=== PATIENT | female | born 1940 | race Caucasian/White ===

== ENCOUNTER 2021-09-13 22:45 | Inpatient (IN) | payer MEDICARE ==
[~2021-09-13] VITALS: Ht 167.6 cm; Wt 76.2 kg
[2021-09-13 22:40] VITALS: BP 155/101
[2021-09-13] MEDS: IV NORMAL SALINE 1000ML BAG 1,000 ML IV SCH (23:32)
[2021-09-14] MEDS ORDERED: AMLO-187 PO (00:22)
[2021-09-14 03:09] VITALS: BP 121/70
--- NOTE | 2021-09-14 05:25 | NUR ---
admiited from [facility] to room 434 at 09/13/2021 [id number], Dr landry contacted with [facility] Addendum: 09/14/21 at 0527 by ANTONETTE DELAROSA RN Dr Landry contacted with admission orders, Patient informed and verbalized understanding to POC.
[2021-09-14 07:00] VITALS: BP_SYST 134; BP_SYST 136; BP_DIAS 48; BP_DIAS 86
--- NOTE | 2021-09-14 10:23 | PDOC2 ---
CONSULT Date of Consult Date of Consult DATE: 09/14/21 TIME: 09:35 Reason for Consult Reason for Consult: constipation, possible colonic mass, ascites, uterine mass Referring Physician Referring Physician: Dr Rush Identification/Chief Complaint Chief Complaint constipation Source Source: Chart review, Patient History of Present Illness Reason for Visit: Reports constipation, bloating x 2 weeks. No stools, some flatus. Took several laxatives at home without improvement. CT done at [facility] reveals concerns for ascites, peritoneal carcinomatosis, uterine mass, sigmoid wall thickening ER Tx for ongoing management Denies any previous findings, no symptoms prior to last 2 weeks per pt Reports able to keep fluids down, did not eat much though because not stooling Past Medical History Cardiovascular: HTN Past Surgical History Past Surgical History: No pertinent history Family History Family History: Other (noncontributory ) Social History No ALCOHOL: none Drugs: None Lives: with Family Current Medications Current Medications Current Medications Fentanyl Citrate (Fentanyl 2ml Vial) 50 mcg PRN Q3HRS PRN IVP SEVERE PAIN 7-10; Start 09/13/21 at 23:00 Sodium Chloride 1,000 ml @ 75 mls/hr [id number] IV Last administered on 09/13/21at 23:32; Start 09/13/21 at 23:00 Ondansetron HCl (Zofran) 4 mg PRN Q6HRS PRN IVP NAUSEA/VOMITING 1ST CHOICE; Start 09/13/21 at 23:00 Active Scripts Active Reported Amlodipine Besylate 10 Mg Tablet 10 Mg PO DAILY Allergies Allergies: Coded Allergies: codeine (Verified Allergy, Severe, 09/13/21) acetaminophen (Verified Allergy, Intermediate, 09/13/21) hydrocodone (Verified Allergy, Intermediate, 09/13/21) tramadol (Verified Allergy, Intermediate, 09/13/21) ROS General: YES: Fatigue, Malaise PSYCHOLOGICAL ROS: No: Anxiety, Depression Eyes: No Blurry vision, No Double vision HEENT: No: Heacaches, Sore Throat Hematological and Lymphatic: No: Bleeding Problems, Blood Clots Respiratory: No: Cough, Shortness of breath Cardiovascular: No Chest Pain, No Palpitations Gastrointestinal: Yes Other (see hpi) Genitourinary: No Dysuria, No Hematuria Musculoskeletal: No Joint Pain, No Muscle Pain Neurological: No Impaired Coord/balance, No Numbness/Tingling Skin: No Pruritus, No Rash Physical Exam General: Alert, Oriented X3, Cooperative, No acute distress HEENT: Atraumatic, PERRLA Lungs: Clear to auscultation, Normal air movement Heart: Regular rate, Normal S1, Normal S2 Abdomen: Other (distended, nontender) Extremities: No clubbing, No cyanosis Skin: No rashes, No breakdown Neuro: Normal gait, Normal speech Psych/Mental Status: Mental status NL, Mood NL MUSCULOSKELETAL: No deformity, No swelling Vitals VITALS Vital Signs Date Time Temp Pulse Resp B/P (MAP) Pulse Ox O2 Delivery O2 Flow Rate FiO2 09/14/21 07:00 98.4 63 18 134/86 (102) 97 Room Air 98.4 Labs Labs Laboratory Tests Test 09/14/21 07:12 SARS-CoV-2 Antigen (Rapid) Positive (NEGATIVE) Laboratory Tests Test 09/14/21 07:12 SARS-CoV-2 Antigen (Rapid) Positive (NEGATIVE) Images Images CT reviewed from [facility] Assessment/Plan Assessment/Plan constipation, abdominal distention CT findings with uterine mass, ascites, possible peritoneal carcinomatosis, mild wall thickening at the splenic flexure of the colon (however no mass, or other abnormal colon findings oncology, GI, lead massage therapist eval--currently no general surgery findings consult, chart 30 min URIEL BROWNE DECKHAND Sep 14, 2021 10:22
--- NOTE | 2021-09-14 10:59 | PN ---
DATE: 09/14/2021 SUBJECTIVE: The patient is resting, slightly propped up in bed, in no apparent respiratory distress. She is frustrated that she was told that she is coming for surgery, but obviously does not the case here. I do not think she has been a surgical candidate given the spread of the tumor to her peritoneal cavity. On top of that she also tested positive for coronavirus. PHYSICAL EXAMINATION: GENERAL: When I examined her, she was pale, not jaundiced, cyanosed, no lymphadenopathy, no thyromegaly, no jugular venous distention. No lower limb edema. VITAL SIGNS: Her heart rate was 63, blood pressure is 134/86, temperature was 98.4, respiratory rate was 18 and oxygen saturation was 97%. HEAD, EYES, EARS, NOSE, AND THROAT: Normocephalic, atraumatic. NECK: Supple. HEART: Normal first and second heart sounds, no gallop or murmur. CHEST: Clear to auscultation, no crepitation or rhonchi. ABDOMEN: Distended, soft. NEUROLOGIC: She is grossly intact. ASSESSMENT: This is a 80-year-old female patient who presented to the Emergency Room of [facility] with a 13-day history of abdominal bloating, constipation and some abdominal pain. Her CT scan revealed that the patient has a uterine mass, ascites and possible peritoneal carcinomatosis, mild wall thickening of the splenic flexure of the colon. PLAN: We have already consulted the oncologist, business development executive and perhaps the interventional radiologist to do a paracentesis and to find out the origin of the tumor. FABIOLA DR: Paula TID: [id number]
[2021-09-14 11:00] VITALS: BP 139/86
--- NOTE | 2021-09-14 11:11 | HP ---
DATE OF SERVICE: 09/14/2021 ADMIT DATE: 09/13/2021 HISTORY OF PRESENT ILLNESS: The patient is a 80-year-old female patient who presented to the Emergency Room of [facility] with a 13-day history of constipation. The patient stated that she has been unable to pass a bowel movement for approximately 13 days. She said she has tried taking MiraLax and other laxatives without success. She also complained of malaise and abdominal bloating as well as pain particularly movement, but denied any nausea or vomiting. Denied any chills, rigors or fever. Denied any weight loss. She was extensively investigated in the Emergency Room and has had lab work as well as imaging studies. Her lab works are mostly unremarkable. Did have a CT scan of the abdomen and pelvis, which basically showed that: 1. The patient has large amount of intra-abdominal ascites with peritoneal and omental nodularity concerning for peritoneal carcinomatosis. 2. There is mild wall thickening at the splenic flexure of the colon, correlates with colonoscopy. 3. Heterogenous enhancing mass centrally within the uterus measuring approximately 6 x 4.2 cm. This may be endometrial in nature. Further evaluation with ultrasound is warranted. She has prominent right inguinal lymph node as described and small hiatal hernia and small bilateral pleural effusion with adjacent atelectasis. The patient was transferred to [facility] after consultation with the oncologist as well as the general surgeon. PAST MEDICAL HISTORY: Significant for hypertension, hyperlipidemia. PAST SURGICAL HISTORY: Significant for bunionectomy 6 years ago. ALLERGIES: SHE IS ALLERGIC TO ULTRACET AND CODEINE. MEDICATIONS: She is on one medication for hypertension that she is unable to recall. FAMILY HISTORY: She has one brother, younger and healthy. Her father at age of 80, the cause of his is not clear. Mother at age of 97; however, she survived breast cancer. SOCIAL HISTORY: She is . She has 2 biological sons who are still alive, 1 daughter of cancer and her son recently due to COVID-19 infection. He has hypertension and end-stage renal disease, on hemodialysis. She quit smoking years ago. Drinks alcohol very occasionally. 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 REVIEW OF SYSTEMS: The patient denied any blurring of vision, cataracts, glaucoma or macular degeneration. Denied any earache, tinnitus or sensory deafness. Denied nosebleed, stuffy nose or postnasal drip. Denied any sore throat, sore tongue, toothache, hoarseness of voice or difficulty swallowing. Denied any nausea, vomiting, diarrhea. Denied any hematemesis, melena or hematochezia. Denied any dysuria, frequency or hematuria. She denied any chest pain, shortness of breath, orthopnea, paroxysmal nocturnal dyspnea. Denied any cough, phlegm or hemoptysis. Denied any chills, rigors or fever. Denied any dizziness, lightheadedness or vertigo. She did complain of generalized malaise and abdominal bloating and pain, but no other complaint. PHYSICAL EXAMINATION: GENERAL: On arrival to the Emergency Room, there was no pallor, jaundice, cyanosis or thyromegaly. No jugular venous distention. No limb edema. VITAL SIGNS: Her heart rate on arrival was 94, blood pressure was 110/72, temperature was 98.3, respiratory rate was 20 and oxygen saturation was 94%. HEAD, EYES, EARS, NOSE, AND THROAT: Normocephalic, atraumatic. NECK: Supple. HEART: Showed normal first and second heart sounds. No gallop, rub or murmur. CHEST: Clear to auscultation, no crepitation or rhonchi. ABDOMEN: Distended, soft, nontender with positive shifting dullness. There is no guarding or rigidity. No organomegaly. All hernial orifices intact. Bowel sounds normal. NEUROLOGIC: She was grossly intact. LABORATORY DATA: On arrival showed a white cell count of 11,600, hemoglobin 13.3, hematocrit 40, MCV 84 and platelet count 505,000 with normal manual differential. Her serum sodium was 135, potassium 4.1, chloride 99, bicarbonate 26, anion gap of 10, BUN 8, creatinine 0.9. Estimated GFR was 60 mL per minute. Her glucose 160, calcium was 9.5, magnesium was 2.1. Total bilirubin, AST, ALT were normal. Alkaline phosphatase was 109, total protein was 7.1, albumin was 2.7, lipase was 59. His CT scan of the abdomen and pelvis showed that the patient has large amount of intra-abdominal ascites with peritoneal and omental nodularity concerning for peritoneal carcinomatosis. There is mild wall thickening at the splenic flexure of the colon, correlates with colonoscopy, heterogenous, enhancing mass centrally within the uterus measuring approximately 6 x 4.2 cm. This may be endometrial in nature. Further evaluation with ultrasound is warranted and prominent right inguinal lymph nodes. As described above she has small hiatal hernia and small bilateral pleural effusion with adjacent atelectasis. ASSESSMENT AND PLAN: In summary, this is a 80-year-old female patient who was admitted to [facility] as a transfer from [facility] Emergency Room where she presented with a 13-day history of constipation, abdominal bloating and distention and abdominal pain. CT scan showed findings concerning for peritoneal carcinomatosis, the primary could be cancer of the uterus or colon cancer. 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 I have consulted the oncologist as well as surgical team as well as the interventional radiologist, who might do paracentesis and send the fluids for cytology to find out the origin of the tumor. SOLA DR: Paula TID: [id number]
[2021-09-14] MEDS: IV NORMAL SALINE 1000ML BAG 1,000 ML IV SCH (12:20)
--- NOTE | 2021-09-14 12:41 | PDOC2 ---
GI CONSULT Date of Service: DATE: 09/14/21 TIME: 12:20 Reason For Consult: uterine mass, ascites, colon wall thickening HPI: HPI: 80 y/o female sent from [facility]. Evaluated there for ~2 weeks of constipation unresolved w/ OTC medications and limiting PO intake. At [facility]: WBC 11.6, Hgb 13.3, MCV 84, plt 505, albumin 2.7, bili 0.4, AST 27, ALT 29, Alk Phos 209, lipase 59, normal BUN and Cr. On CT: large amount of ascites w/ peritoneal and omental nodularity concerning for peritoneal carcinomatosis, mild wall thickening at splenic flexure of colon, heterogenous enhancing mass centrally within the uterus (6 x 4.2cm), prominent right inguinal node, small hiatal hernia, small bilateral pleural effusions w/ adjacent atelectasis. Rapid COVID positive here. ER note indicates "regurgitation of mucous" and request for Tums. No response to Miralax and Dulcolax there. She's not forthcoming with information and is frustrated w/ many things - her IV beeped all night and we keep asking her the same questions - "Did you even review any of my information? You should know all this." Per other notes, son recently - nurse says was last weekend. Occasional heartburn improved w/ Tums PRN. Denies chronic constipation. Denies weight loss. Abdominal pain when she lays on her sides - does not elaborate. No previous EGD or colonoscopy. Denies GB, liver, or pancreas history. Reports she has had loose stools since she arrived, was upset when I asked how many. PMH: PMH: per other notes: HTN, HLD, bunionectomy wears hearing aids FH: Family History: Cancer (mother - breast) Social History: Smoke: Quit ALCOHOL: rare Drugs: None ROS: difficult to obtain, see HPI Vitals: Vitals: Vital Signs Date Time Temp Pulse Resp B/P (MAP) Pulse Ox O2 Delivery O2 Flow Rate FiO2 09/14/21 11:00 98.3 68 16 139/86 (103) 97 Room Air 98.3 Labs: Labs: Laboratory Tests Test 09/14/21 07:12 SARS-CoV-2 Antigen (Rapid) Positive (NEGATIVE) Allergies: Coded Allergies: codeine (Verified Allergy, Severe, 09/13/21) acetaminophen (Verified Allergy, Intermediate, 09/13/21) hydrocodone (Verified Allergy, Intermediate, 09/13/21) tramadol (Verified Allergy, Intermediate, 09/13/21) Medications: Current Medications Medications (Trade) Dose Ordered Sig/Rohit Route PRN Reason Start Time Stop Time Status Last Admin Dose Admin Sodium Chloride 1,000 ml @ 75 mls/hr [id number] IV 09/13/21 23:00 09/13/21 23:32 Imaging: Imaging: per HPI PE: GEN: NAD, drinking broth HEENT: Atraumatic, PERRL LUNGS: CTAB, room air HEART: RRR ABD: maybe a quiet gurgle or two, distended, seems non-tender - pt not forthcoming EXTREMITY: No edema SKIN: No rashes, no jaundice NEURO/PSYCH: A & O 3, angry A/P: A/P: Constipation, abdominal distention Abnormal CT - uterine mass, large amount of ascites, suspected peritoneal carcinomatosis, mild wall thickening at splenic flexure, prominent right inguinal node H/o heartburn CRC screen - none COVID + -- Imaging concerning for metastatic disease - ?uterine primary Not having a good day for several reasons, not too interested in communicating w/ me - will return later w/ Dr. Moseley. Surgery following, awaiting PLASTIC JIG AND FIXTURE BUILDER and oncology thoughts. JENNIFER REBOLLEDO Sep 14, 2021 12:41
--- NOTE | 2021-09-14 14:00 | PDOC2 ---
CONSULT Date of Consult Date of Consult DATE: 09/14/21 TIME: 13:58 Reason for Consult Reason for Consult: endometrial mass and likely peritoneal carcinomatosis History of Present Illness Reason for Visit: The pt is a 80y who presented to [place] ER with 2wks of bloating and constipation. In the ER a CBC was performed revealing an elevated WBC and Plt. A CT was performed revealing the following: IMPRESSION: 1. Large amount of intra-abdominal ascites with peritoneal and omental nodularity concerning for peritoneal carcinomatosis. 2. There is mild wall thickening at the splenic flexure of the colon. Correlate with colonoscopy. 3. Heterogenous enhancing mass centrally within the uterus measuring approximately 6.0 x 4.2 cm. This may be endometrial in nature. Further evaluation with ultrasound is warranted. 4. Prominent right inguinal lymph node as described above. 5. Small hiatal hernia. 6. Small bilateral pleural effusions with adjacent atelectasis. The pt was subsequently transferred to [facility] for eval and management. The pt was told that she would undergo surgery the following morning. Discussed the findings with the pt. Explained that the tx course would need to be determined with a Building Equipment Operator/Onc. Explained that based on the findings it is likely that she has CA with the origin being endometrial. She never recalls every having postmenopausal bleeding. She recalls having abnml pap that resolved spontaneously. Explained that paps screen for cervical dysplasia, so they would have been unlikely detect any uterine abnml. She hasnt seen a Building Equipment Operator for a couple yrs. After her watermaster Building Equipment Operator relocated to the [place], she say their replacement once. PMH: HTN, Hypercholesterolemia PSH: Bunion OBHx: TSVD x 3 Building Equipment Operator: LMP does not recall Menarche at 15yo / regular periods throughout her life SH: no tob, no EtOH FH: CAD Past Medical History Cardiovascular: HTN Past Surgical History Past Surgical History: No pertinent history Family History Family History: Other (noncontributory ) Social History Quit ALCOHOL: rare Drugs: None Lives: with Family Current Medications Current Medications Current Medications Fentanyl Citrate (Fentanyl 2ml Vial) 50 mcg PRN Q3HRS PRN IVP SEVERE PAIN 7-10; Start 09/13/21 at 23:00 Sodium Chloride 1,000 ml @ 75 mls/hr [id number] IV Last administered on 09/13/21at 23:32; Start 09/13/21 at 23:00 Ondansetron HCl (Zofran) 4 mg PRN Q6HRS PRN IVP NAUSEA/VOMITING 1ST CHOICE; Start 09/13/21 at 23:00 Active Scripts Active Reported Amlodipine Besylate 10 Mg Tablet 10 Mg PO DAILY Allergies Allergies: Coded Allergies: codeine (Verified Allergy, Severe, 09/13/21) acetaminophen (Verified Allergy, Intermediate, 09/13/21) hydrocodone (Verified Allergy, Intermediate, 09/13/21) tramadol (Verified Allergy, Intermediate, 09/13/21) Physical Exam General: Alert, Oriented X3, Cooperative, No acute distress HEENT: PERRLA, Mucous membr. moist/pink Lungs: Clear to auscultation, Normal air movement Heart: Regular rate, Normal S1, Normal S2, No murmurs Abdomen: Soft, No tenderness, No hepatosplenomegaly Extremities: No clubbing, No cyanosis, No edema, Normal pulses, No tenderness/swelling Skin: No rashes, No breakdown Neuro: Normal gait, Normal speech, Normal tone, Sensation intact, Reflexes 2+ Psych/Mental Status: Mental status NL, Mood NL Vitals VITALS Vital Signs Date Time Temp Pulse Resp B/P (MAP) Pulse Ox O2 Delivery O2 Flow Rate FiO2 09/14/21 11:00 98.3 68 16 139/86 (103) 97 Room Air 98.3 Labs Labs Laboratory Tests Test 09/14/21 07:12 SARS-CoV-2 Antigen (Rapid) Positive (NEGATIVE) Laboratory Tests Test 09/14/21 07:12 SARS-CoV-2 Antigen (Rapid) Positive (NEGATIVE) Assessment/Plan Assessment/Plan Assessment: 80y with endometrial mass and likely peritoneal carcinomatosis Recommendations: 1.) Endometrial mass 6.0 x 4.2 cm mass. Large amount of ascites and peritoneal and omental nodules. The pt will need inpt or outpt referral to Building Equipment Operator/Onc. Preferred referral is Dr. Saumya Mason ([facility]) at [phone]. Obtaining a biopsy or cytology may have limited value, especially if it delays transfer or referral. 2.) Constipation likely 2/2 peritoneal carcinomatosis 3.) Covid pos 4.) Menopause no h/o ERT/HRT 5.) HTN 6.) Will cont to follow BRENDON FUNG MD Sep 14, 2021 14:00
[2021-09-14 15:13] LABS: PROTHROMBIN TIME PATIENT 14.4 SEC (11.7-14.0)
[2021-09-14 15:15] VITALS: BP 124/70
--- NOTE | 2021-09-14 15:20 | NUR ---
SW following. Discussed with RN, pt from home, room air, clear liquid diet, COVID-19 positive. Surgery, GI and Blade Grinder following. Pt will transfer to the 5th floor due to COVID status. SW will continue to follow.
[2021-09-14 19:00] VITALS: BP 124/82
[2021-09-14] MEDS: ONDANSETRON PF 4 MG/2 ML VIAL. IVP PRN (23:23)
[2021-09-14] MEDS: fentaNYL PF VIAL 100 MCG/2 ML VIAL IVP PRN (23:24)
[2021-09-14 23:33] VITALS: BP 146/94
[2021-09-15] VITALS (7 sets, daily range): BP systolic 124–143; BP diastolic 73–91
[2021-09-15] MEDS: IV NORMAL SALINE 1000ML BAG 1,000 ML IV SCH ×2 (01:40→15:00)
[2021-09-15 06:22] LABS: BASO # 0.1 x10^3/uL (0.0-0.2); BASO % 1 % (0-3); EOS # 0.1 x10^3/uL (0.0-0.7); EOS % 1 % (0-3); HEMATOCRIT 39.2 % (36.0-47.0); HEMOGLOBIN 12.7 g/dL (12.0-15.5); LYMPH # 1.5 x10^3/uL (1.0-4.8); LYMPH % 13 % (24-48); MEAN CORPUSCULAR HEMOGLOBIN 27 pg (25-35); MEAN CORPUSCULAR HGB CONC 33 g/dL (31-37); MEAN CORPUSCULAR VOLUME 83 fL (79-100); MONO # 1.2 x10^3/uL (0.0-1.1); MONO % 11 % (0-9); NEUT # 8.4 x10^3/uL (1.8-7.7); NEUT % 74 % (31-73); PLATELET COUNT 504 x10^3/uL (140-400); RED CELL DISTRIBUTION WIDTH 13.6 % (11.5-14.5); WHITE BLOOD COUNT 11.3 x10^3/uL (4.0-11.0)
[2021-09-15 06:50] LABS: ALBUMIN 2.3 g/dL (3.4-5.0); ALBUMIN/GLOBULIN RATIO 0.5 (1.0-1.7); CALCIUM 8.8 mg/dL (8.5-10.1); CREATININE 0.7 mg/dL (0.6-1.0); GFR 80.7; POTASSIUM 3.6 mmol/L (3.5-5.1); TOTAL BILIRUBIN 0.4 mg/dL (0.2-1.0); TOTAL PROTEIN 6.9 g/dL (6.4-8.2)
--- NOTE | 2021-09-15 09:09 | PDOC ---
URIEL BROWNE BACTERIOLOGIST FOOD 09/15/21 0909: SURGICAL PROGRESS NOTE DATE: 09/15/21 TIME: 09:06 Subjective sitting up having jello still very bloated Vital Signs Vital Signs Date Time Temp Pulse Resp B/P (MAP) Pulse Ox O2 Delivery O2 Flow Rate FiO2 09/15/21 07:00 97.4 88 17 124/73 (90) 90 Room Air 97.4 I&O Intake and Output 09/15/21 07:00 Intake Total 210 ml Balance 210 ml Intake Oral 210 ml # Voids 7 General: Alert, Cooperative Abdomen: Other (distended ) Labs Laboratory Tests Test 09/14/21 07:12 09/14/21 14:43 09/15/21 05:55 SARS-CoV-2 Antigen (Rapid) Positive (NEGATIVE) Prothrombin Time 14.4 SEC (11.7-14.0) Prothromb Time International Ratio 1.1 (0.8-1.1) CA 125 Antigen 425.0 U/mL (0.0-38.1) White Blood Count 11.3 x10^3/uL (4.0-11.0) Red Blood Count 4.70 x10^6/uL (3.50-5.40) Hemoglobin 12.7 g/dL (12.0-15.5) Hematocrit 39.2 % (36.0-47.0) Mean Corpuscular Volume 83 fL (79-100) Mean Corpuscular Hemoglobin 27 pg (25-35) Mean Corpuscular Hemoglobin Concent 33 g/dL (31-37) Red Cell Distribution Width 13.6 % (11.5-14.5) Platelet Count 504 x10^3/uL (140-400) Neutrophils (%) (Auto) 74 % (31-73) Lymphocytes (%) (Auto) 13 % (24-48) Monocytes (%) (Auto) 11 % (0-9) Eosinophils (%) (Auto) 1 % (0-3) Basophils (%) (Auto) 1 % (0-3) Neutrophils # (Auto) 8.4 x10^3/uL (1.8-7.7) Lymphocytes # (Auto) 1.5 x10^3/uL (1.0-4.8) Monocytes # (Auto) 1.2 x10^3/uL (0.0-1.1) Eosinophils # (Auto) 0.1 x10^3/uL (0.0-0.7) Basophils # (Auto) 0.1 x10^3/uL (0.0-0.2) Sodium Level 136 mmol/L (136-145) Potassium Level 3.6 mmol/L (3.5-5.1) Chloride Level 101 mmol/L (98-107) Carbon Dioxide Level 24 mmol/L (21-32) Anion Gap 11 (6-14) Blood Urea Nitrogen 9 mg/dL (7-20) Creatinine 0.7 mg/dL (0.6-1.0) Estimated GFR (Cockcroft-Gault) 80.7 BUN/Creatinine Ratio 13 (6-20) Glucose Level 86 mg/dL (70-99) Calcium Level 8.8 mg/dL (8.5-10.1) Total Bilirubin 0.4 mg/dL (0.2-1.0) Aspartate Amino Transf (AST/SGOT) 23 U/L (15-37) Alanine Aminotransferase (ALT/SGPT) 22 U/L (14-59) Alkaline Phosphatase 164 U/L (46-116) Total Protein 6.9 g/dL (6.4-8.2) Albumin 2.3 g/dL (3.4-5.0) Albumin/Globulin Ratio 0.5 (1.0-1.7) Laboratory Tests Test 09/14/21 14:43 09/15/21 05:55 Prothrombin Time 14.4 SEC (11.7-14.0) Prothromb Time International Ratio 1.1 (0.8-1.1) CA 125 Antigen 425.0 U/mL (0.0-38.1) White Blood Count 11.3 x10^3/uL (4.0-11.0) Red Blood Count 4.70 x10^6/uL (3.50-5.40) Hemoglobin 12.7 g/dL (12.0-15.5) Hematocrit 39.2 % (36.0-47.0) Mean Corpuscular Volume 83 fL (79-100) Mean Corpuscular Hemoglobin 27 pg (25-35) Mean Corpuscular Hemoglobin Concent 33 g/dL (31-37) Red Cell Distribution Width 13.6 % (11.5-14.5) Platelet Count 504 x10^3/uL (140-400) Neutrophils (%) (Auto) 74 % (31-73) Lymphocytes (%) (Auto) 13 % (24-48) Monocytes (%) (Auto) 11 % (0-9) Eosinophils (%) (Auto) 1 % (0-3) Basophils (%) (Auto) 1 % (0-3) Neutrophils # (Auto) 8.4 x10^3/uL (1.8-7.7) Lymphocytes # (Auto) 1.5 x10^3/uL (1.0-4.8) Monocytes # (Auto) 1.2 x10^3/uL (0.0-1.1) Eosinophils # (Auto) 0.1 x10^3/uL (0.0-0.7) Basophils # (Auto) 0.1 x10^3/uL (0.0-0.2) Sodium Level 136 mmol/L (136-145) Potassium Level 3.6 mmol/L (3.5-5.1) Chloride Level 101 mmol/L (98-107) Carbon Dioxide Level 24 mmol/L (21-32) Anion Gap 11 (6-14) Blood Urea Nitrogen 9 mg/dL (7-20) Creatinine 0.7 mg/dL (0.6-1.0) Estimated GFR (Cockcroft-Gault) 80.7 BUN/Creatinine Ratio 13 (6-20) Glucose Level 86 mg/dL (70-99) Calcium Level 8.8 mg/dL (8.5-10.1) Total Bilirubin 0.4 mg/dL (0.2-1.0) Aspartate Amino Transf (AST/SGOT) 23 U/L (15-37) Alanine Aminotransferase (ALT/SGPT) 22 U/L (14-59) Alkaline Phosphatase 164 U/L (46-116) Total Protein 6.9 g/dL (6.4-8.2) Albumin 2.3 g/dL (3.4-5.0) Albumin/Globulin Ratio 0.5 (1.0-1.7) Problem List reviewed Dr Soriano note--agree would benefit from bull riveter/onc eval--may be of benefit for inpt tx if possible IR consulted for paracentesis, fluid sampling no gen surg plans, available over weekend as needed round, chart 20 min Justicifation of Admission Dx: Justifications for Admission: Justification of Admission Dx: Yes Comments: uterine mass, peritoneal carcinomatosis LUDWIG GUARDADO MD 09/15/212118: SURGICAL PROGRESS NOTE Assessment/Plan 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
[2021-09-15] MEDS: ONDANSETRON PF 4 MG/2 ML VIAL. IVP PRN (09:36)
--- NOTE | 2021-09-15 09:49 | PDOC ---
Date of Service: DATE: 09/15/21 TIME: 09:43 Objective: Objective: D/w nurse - pt not too happy this morning, c/o heartburn, unclear paracentesis plans. D/w surgery - would benefit from [facility] EDIT[facility] ONC, not available here. D/w hospitalist - will attempt to transfer to another facility. Reviewed CITY EDITOR note. Elevated CA 125. Vital Signs: Vital Signs Date Time Temp Pulse Resp B/P (MAP) Pulse Ox O2 Delivery O2 Flow Rate FiO2 09/15/21 07:00 97.4 88 17 124/73 (90) 90 Room Air 97.4 Labs: Laboratory Tests Test 09/14/21 14:43 09/15/21 05:55 Prothrombin Time 14.4 SEC Prothromb Time International Ratio 1.1 CA 125 Antigen 425.0 U/mL White Blood Count 11.3 x10^3/uL Red Blood Count 4.70 x10^6/uL Hemoglobin 12.7 g/dL Hematocrit 39.2 % Mean Corpuscular Volume 83 fL Mean Corpuscular Hemoglobin 27 pg Mean Corpuscular Hemoglobin Concent 33 g/dL Red Cell Distribution Width 13.6 % Platelet Count 504 x10^3/uL Neutrophils (%) (Auto) 74 % Lymphocytes (%) (Auto) 13 % Monocytes (%) (Auto) 11 % Eosinophils (%) (Auto) 1 % Basophils (%) (Auto) 1 % Neutrophils # (Auto) 8.4 x10^3/uL Lymphocytes # (Auto) 1.5 x10^3/uL Monocytes # (Auto) 1.2 x10^3/uL Eosinophils # (Auto) 0.1 x10^3/uL Basophils # (Auto) 0.1 x10^3/uL Sodium Level 136 mmol/L Potassium Level 3.6 mmol/L Chloride Level 101 mmol/L Carbon Dioxide Level 24 mmol/L Anion Gap 11 Blood Urea Nitrogen 9 mg/dL Creatinine 0.7 mg/dL Estimated GFR (Cockcroft-Gault) 80.7 BUN/Creatinine Ratio 13 Glucose Level 86 mg/dL Calcium Level 8.8 mg/dL Total Bilirubin 0.4 mg/dL Aspartate Amino Transf (AST/SGOT) 23 U/L Alanine Aminotransferase (ALT/SGPT) 22 U/L Alkaline Phosphatase 164 U/L Total Protein 6.9 g/dL Albumin 2.3 g/dL Albumin/Globulin Ratio 0.5 PE: GEN: NAD - in COVID isolation - was speaking with Dr. 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 Possible transfer for [facility] EDITOR ONC help - not available here - concern this will be difficult considering pandemic, COVID+, etc. Paracentesis ordered yesterday - for therapeutic reasons as well as diagnostic. Justicifation of Admission Dx: Justifications for Admission: Justification of Admission Dx: Yes JENNIFER REBOLLEDO Sep 15, 2021 09:49
[2021-09-15] MEDS ORDERED: CALCIUM CARBONATE 500 MG TAB.CHEW PO PRN (10:00)
--- NOTE | 2021-09-15 10:29 | NUR ---
SW following. Discussed with RN, pt from home, room air, clear liquid diet, COVID-[address] Rush working on a hospital transfer for electronic drafter oncology. Awaiting outcome. AMBAR will continue to follow. Addendum: 09/15/21 at 1524 by DEISY VILLALTA No transfers available at this time and pt will need to follow up outpatient at another hospital. Pt accepted with [facility]. Per RN, pt ambulating in the room and to the bathroom.
--- NOTE | 2021-09-15 10:58 | PDOC ---
HEDIS REGISTERED NURSE RN PROGRESS NOTE Date of Service: DATE: 09/15/21 TIME: 10:58 Subjective: Pt still with bloating and constipation. Still remains without N/V. Also reports early satiety over this period of time. Discussed logistical aspect of referral to [facility]/Onc. And how her living situation and recent Covid dx may complicate things. Objective: Vital Signs: Vital Signs Date Time Temp Pulse Resp B/P (MAP) Pulse Ox O2 Delivery O2 Flow Rate FiO2 09/14/21 07:00 98.4 63 18 134/86 (102) 97 Room Air 98.4 Vital Signs Date Time Temp Pulse Resp B/P (MAP) Pulse Ox O2 Delivery O2 Flow Rate FiO2 09/15/21 08:30 Room Air 09/15/21 07:00 97.4 88 17 124/73 (90) 90 97.4 Labs: Laboratory Tests Test 09/14/21 14:43 09/15/21 05:55 Prothrombin Time 14.4 SEC (11.7-14.0) H Prothrombin Time INR 1.1 (0.8-1.1) CA 125 Antigen 425.0 U/mL (0.0-38.1) H White Blood Count 11.3 x10^3/uL (4.0-11.0) H Red Blood Count 4.70 x10^6/uL (3.50-5.40) Hemoglobin 12.7 g/dL (12.0-15.5) Hematocrit 39.2 % (36.0-47.0) Mean Corpuscular Volume 83 fL (79-100) Mean Corpuscular Hemoglobin 27 pg (25-35) Mean Corpuscular Hemoglobin Concent 33 g/dL (31-37) Red Cell Distribution Width 13.6 % (11.5-14.5) Platelet Count 504 x10^3/uL (140-400) H Neutrophils (%) (Auto) 74 % (31-73) H Lymphocytes (%) (Auto) 13 % (24-48) L Monocytes (%) (Auto) 11 % (0-9) H Eosinophils (%) (Auto) 1 % (0-3) Basophils (%) (Auto) 1 % (0-3) Neutrophils # (Auto) 8.4 x10^3/uL (1.8-7.7) H Lymphocytes # (Auto) 1.5 x10^3/uL (1.0-4.8) Monocytes # (Auto) 1.2 x10^3/uL (0.0-1.1) H Eosinophils # (Auto) 0.1 x10^3/uL (0.0-0.7) Basophils # (Auto) 0.1 x10^3/uL (0.0-0.2) Sodium Level 136 mmol/L (136-145) Potassium Level 3.6 mmol/L (3.5-5.1) Chloride Level 101 mmol/L (98-107) Carbon Dioxide Level 24 mmol/L (21-32) Anion Gap 11 (6-14) Blood Urea Nitrogen 9 mg/dL (7-20) Creatinine 0.7 mg/dL (0.6-1.0) Estimated GFR (Cockcroft-Gault) 80.7 BUN/Creatinine Ratio 13 (6-20) Glucose Level 86 mg/dL (70-99) Calcium Level 8.8 mg/dL (8.5-10.1) Total Bilirubin 0.4 mg/dL (0.2-1.0) Aspartate Amino Transferase (AST) 23 U/L (15-37) Alanine Aminotransferase (ALT) 22 U/L (14-59) Alkaline Phosphatase 164 U/L (46-116) H Total Protein 6.9 g/dL (6.4-8.2) Albumin 2.3 g/dL (3.4-5.0) L Albumin/Globulin Ratio 0.5 (1.0-1.7) L Laboratory Tests 09/15/21 05:55 Laboratory Tests 09/15/21 05:55 Laboratory Tests 09/15/21 05:55 Physical Exam: GENERAL: No apparent distress. Alert and oriented. HEENT: Head normocephalic, atraumatic. NECK: Supple LUNGS: Clear to auscultation. HEART: RRR, S1, S2 present, pulses intact ABDOMEN: Soft, positive bowel sounds. EXTREMITIES: No cyanosis or edema. NEUROLOGIC: Normal speech, normal tone PSYCHIATRIC: Normal affect, normal mood. SKIN: No ulceration. 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 Large amount of ascites and peritoneal and omental nodules. Attempting referral to [facility]/Onc. Elvira Verona declined inpt referral. Outpt referral may difficult as well due to Covid. 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
[2021-09-15] MEDS: PANTOPRAZOLE 40 MG TABLET.DR. PO SCH (11:08)
--- NOTE | 2021-09-15 12:56 | RAD ---
Ultrasound-guided paracentesis. 09/15/2021 12:53 PM Indication: Reason: ascites, concern for metastatic disease / Spl. Instructions: / History: Discussion: The risks and benefits of the procedure including but not limited to bleeding, hypotensio n, and infection were discussed the patient. Informed consent was obtained. Ultrasound evaluation was performed demonstrating ascites, with the largest pocket and the right lower quadrant. The right low er quadrant was prepped and draped in sterile fashion. 1% lidocaine without epinephrine was administe red for local anesthesia. Under direct ultrasound guidance a 5 Vincentian Yueh needle was advanced into t he peritoneal space. Serous fluid was aspirated. The catheter was connected to suction and approximat melissa 4.6 liters of fluid was removed. The catheter was then removed and manual pressure was held to a chieve hemostasis. A sterile dressing was applied. Impression: Ultrasound-guided paracentesis with removal of 4.6 L of ascites Electronically signed by: Rafal Navarrete MD (09/15/2021 12:53 PM) [id number]
--- NOTE | 2021-09-15 15:30 | PN ---
DATE: 09/15/2021 SUBJECTIVE: The patient is a 80-year-old female patient who was admitted with 2 weeks' history of constipation. 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 She was seen in consultation by the oncologist as well as surgical team, webbing inspector and the sleeve baster. Obviously, she is not a surgical candidate and apparently, paracentesis was ordered for cytology and also a tumor marker was sent. Her CA 19-9 was high at 425. However, the sleeve baster recommended transferring her to a higher care center, which is obviously easier said than done. The patient will according to him need inpatient or outpatient referral to sleeve baster and oncologist, preferred referral to Saumya Mason at [facility]. Obtaining a biopsy or cytology may have limited value, especially if it delays transfer or referral. I am not really sure about that given the difficulty transferring the patient, at least securing the diagnosis would be probably something that can be achieved here and eventually she can be transferred there or can have an outpatient appointment. I have already spoken with the transfer center, [facility] and if she was accepted, would obviously transfer her. If they have no beds, I will try with [facility], but I feel that it is better to pursue the paracentesis that would at least capture the diagnosis. MARCUS DR: Paula TID: [id number]
[2021-09-15 16:08] LABS: BF CLARITY HAZY; BF COLOR YELLOW; BF MON % 21 %; BF PMN % 73 %; BF RBC COUNT 1681 /cmm (Not Established); BF SOURCE ASCITES; BF WBC COUNT 1337 /cmm (Not Established)
[2021-09-15 16:09] LABS: BF OTHER % 6 %
[2021-09-15 20:08] LABS: ANA INTERP Negative (.)
[2021-09-16] MEDS: IV NORMAL SALINE 1000ML BAG 1,000 ML IV SCH ×2 (04:20→17:40)
[2021-09-16 07:00] VITALS: BP 128/89
[2021-09-16] MEDS: PANTOPRAZOLE 40 MG TABLET.DR. PO SCH (09:50)
--- NOTE | 2021-09-16 11:12 | PDOC ---
G I PROGRESS NOTE Subjective In COVID isolation; not lizk-ix-molb visit. Objective Notes, labs. imaging reviewed. Physical Exam No PE. Review of Relevant I have reviewed the following items tejas (where applicable) has been applied. Labs Laboratory Tests Test 09/14/21 14:01 09/14/21 14:43 09/15/21 05:55 Body Fluid Source Ascites Body Fluid Color Yellow Body Fluid Clarity Hazy Body Fluid Nucleated Cells 1337 /cmm (Not Established) Body Fluid Mononuclear WBCs (%) 21 % Body Fluid Polymorphonuclear Cells 73 % Body Fluid Total RBCs Counted 1681 /cmm (Not Established) Body Fluid Other Cells (%) 6 % Prothrombin Time 14.4 SEC (11.7-14.0) Prothromb Time International Ratio 1.1 (0.8-1.1) Carcinoembryonic Antigen 0.5 ng/mL (0.0-4.7) CA 19-9 Antigen 55 U/mL (0-35) CA 125 Antigen 425.0 U/mL (0.0-38.1) Anti-Nuclear Antibody Interpret Negative (.) White Blood Count 11.3 x10^3/uL (4.0-11.0) Red Blood Count 4.70 x10^6/uL (3.50-5.40) Hemoglobin 12.7 g/dL (12.0-15.5) Hematocrit 39.2 % (36.0-47.0) Mean Corpuscular Volume 83 fL (79-100) Mean Corpuscular Hemoglobin 27 pg (25-35) Mean Corpuscular Hemoglobin Concent 33 g/dL (31-37) Red Cell Distribution Width 13.6 % (11.5-14.5) Platelet Count 504 x10^3/uL (140-400) Neutrophils (%) (Auto) 74 % (31-73) Lymphocytes (%) (Auto) 13 % (24-48) Monocytes (%) (Auto) 11 % (0-9) Eosinophils (%) (Auto) 1 % (0-3) Basophils (%) (Auto) 1 % (0-3) Neutrophils # (Auto) 8.4 x10^3/uL (1.8-7.7) Lymphocytes # (Auto) 1.5 x10^3/uL (1.0-4.8) Monocytes # (Auto) 1.2 x10^3/uL (0.0-1.1) Eosinophils # (Auto) 0.1 x10^3/uL (0.0-0.7) Basophils # (Auto) 0.1 x10^3/uL (0.0-0.2) Sodium Level 136 mmol/L (136-145) Potassium Level 3.6 mmol/L (3.5-5.1) Chloride Level 101 mmol/L (98-107) Carbon Dioxide Level 24 mmol/L (21-32) Anion Gap 11 (6-14) Blood Urea Nitrogen 9 mg/dL (7-20) Creatinine 0.7 mg/dL (0.6-1.0) Estimated GFR (Cockcroft-Gault) 80.7 BUN/Creatinine Ratio 13 (6-20) Glucose Level 86 mg/dL (70-99) Calcium Level 8.8 mg/dL (8.5-10.1) Total Bilirubin 0.4 mg/dL (0.2-1.0) Aspartate Amino Transf (AST/SGOT) 23 U/L (15-37) Alanine Aminotransferase (ALT/SGPT) 22 U/L (14-59) Alkaline Phosphatase 164 U/L (46-116) Total Protein 6.9 g/dL (6.4-8.2) Albumin 2.3 g/dL (3.4-5.0) Albumin/Globulin Ratio 0.5 (1.0-1.7) Microbiology 09/14/21 Gram Stain - Preliminary, Resulted 09/14/21 Aerobic and Anaerobic Culture - Preliminary, Resulted Note preponderance of PMN's on ascitic fluid studies. Medications Current Medications Fentanyl Citrate (Fentanyl 2ml Vial) 50 mcg PRN Q3HRS PRN IVP SEVERE PAIN 7-10 Last administered on 09/14/21at 23:24; Start 09/13/21 at 23:00 Sodium Chloride 1,000 ml @ 75 mls/hr [id number] IV Last administered on 09/13/21at 23:32; Start 09/13/21 at 23:00 Ondansetron HCl (Zofran) 4 mg PRN Q6HRS PRN IVP NAUSEA/VOMITING 1ST CHOICE Last administered on 09/15/21at 09:36; Start 09/13/21 at 23:00 Pantoprazole Sodium (Protonix) 40 mg DAILYAC PO Last administered on 09/16/21at 09:50; Start 09/15/21 at 10:30 Calcium Carbonate/ Glycine (Tums) 500 mg PRN AFTMEALHC PRN PO INDIGESTION; Start 09/15/21 at 10:00 Active Scripts Active Reported Amlodipine Besylate 10 Mg Tablet 10 Mg PO DAILY Vitals/I & O Vital Sign - Last 24 Hours 09/15/21 09/15/21 09/15/21 09/15/21 12:10 12:30 15:00 19:00 Temp 97.0 98.6 97.0 98.6 Pulse 89 87 Resp 17 16 B/P (MAP) 140/88 (105) 128/88 (101) 139/81 (100) 129/77 (94) Pulse Ox 92 92 O2 Delivery Room Air Room Air 09/15/21 09/16/21 09/16/21 23:00 03:00 07:00 Temp 98.0 98.0 Pulse 92 Resp 18 B/P (MAP) 128/89 (102) Pulse Ox 90 O2 Delivery Room Air Room Air Room Air Intake and Output 09/15/21 09/15/21 09/16/21 15:00 23:00 07:00 Intake Total 100 ml Output Total 4400 ml 0 ml Balance -4300 ml 0 ml Afebrile. 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 CA-125 a marker for peritoneal disease. No fever, etc. Plan of Care Note Given no fever would await culture on fluid; suspect the carcinomatosis could cause the elevated poly's in fluid. Justicifation of Admission Dx: Justifications for Admission: Justification of Admission Dx: Yes BRENDON NELSON MD Sep 16, 2021 11:12
--- NOTE | 2021-09-16 12:51 | PN ---
DATE: 09/16/2021 SUBJECTIVE: The patient is sitting propped up in bed, continued to complain of abdominal pain; however, she is feeling generally better, she now can breathe easier after we drained about 4.5 liters of her peritoneal fluid. PHYSICAL EXAMINATION: GENERAL: When I examined her, there was no pallor, jaundice, cyanosis or thyromegaly. No jugular venous distention. No lower limb edema. VITAL SIGNS: Her heart rate was 92, blood pressure was 128/89, temperature was 98, respiratory rate was 18 and oxygen saturation was 90% on room air. HEAD, EYES, EARS, NOSE AND THROAT: Normocephalic, atraumatic. NECK: Supple. HEART: Showed normal first and second heart sounds. No gallop, rub or murmur. CHEST: Clear to auscultation. No crepitation or rhonchi. ABDOMEN: Tender, but no guarding or rigidity. No organomegaly. All hernial orifice intact. Bowel sounds normal. NEUROLOGIC: She was grossly intact. LABORATORY DATA: Her intake and output are incompletely recorded. Her ascitic fluid was yellow, hazy with fluid nucleated cells of 1337, of which 21% were mononuclear and 73% polymorphonuclear. Her SARS-CoV-2 antigens rapid testing was positive. Her antinuclear antibody interpretation was negative. Her carcinoembryonic antigen was 0.5. The CA 19-9 antigen was 55 and CA-125 antigen was 425. ASSESSMENT AND PLAN: 1. 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 2. Ascitic fluid, nucleated cells were 1337, of which 21% were mononuclear and 73% polymorphonuclear. I am not really sure what to make of this and as possibility of peritonitis is possible with this finding, I will consult the Infectious Disease to see whether antibiotic need to be started. Her ascitic fluid was sent for culture. PRIYA/JACQUI DR: Paula TID: [id number]
[2021-09-16 19:00] VITALS: BP 112/72
[2021-09-17 07:00] VITALS: BP 118/73
[2021-09-17] MEDS: IV NORMAL SALINE 1000ML BAG 1,000 ML IV SCH ×2 (07:00→20:20)
[2021-09-17 07:58] LABS: BASO % 0 % (0-3); EOS % 0 % (0-3); LYMPH # 1.2 x10^3/uL (1.0-4.8); LYMPH % 12 % (24-48); MEAN CORPUSCULAR HEMOGLOBIN 27 pg (25-35); MEAN CORPUSCULAR HGB CONC 32 g/dL (31-37); MEAN CORPUSCULAR VOLUME 83 fL (79-100); MONO # 1.2 x10^3/uL (0.0-1.1); MONO % 12 % (0-9); NEUT # 7.6 x10^3/uL (1.8-7.7); NEUT % 76 % (31-73); PLATELET COUNT 453 x10^3/uL (140-400); RED BLOOD COUNT 4.46 x10^6/uL (3.50-5.40); RED CELL DISTRIBUTION WIDTH 13.6 % (11.5-14.5)
[2021-09-17 08:41] LABS: ALBUMIN 1.7 g/dL (3.4-5.0); ALBUMIN/GLOBULIN RATIO 0.4 (1.0-1.7); CALCIUM 8.1 mg/dL (8.5-10.1); CREATININE 0.6 mg/dL (0.6-1.0); GFR 96.4; POTASSIUM 3.1 mmol/L (3.5-5.1); TOTAL BILIRUBIN 0.3 mg/dL (0.2-1.0); TOTAL PROTEIN 5.5 g/dL (6.4-8.2)
[2021-09-17] MEDS ORDERED: traMADol 50 MG TABLET PO PRN (09:30)
[2021-09-17] MEDS ORDERED: NAPROXEN 500 MG TABLET PO PRN (09:30)
--- NOTE | 2021-09-17 09:54 | PN ---
DATE: 09/17/2021 SUBJECTIVE: The patient is resting, slightly propped up in bed, no apparent distress. She continued to complain of abdominal pain, but has no fever. Her ascitic fluid, white cell count was high at 1337 with 73% polymorphs; however, Dr. Vasquez felt that peritoneal carcinomatosis can cause this finding and that he would wait for the culture and sensitivity before recommending any antibiotic treatment. So far the aerobic and anaerobic ascitic fluid culture was negative. The patient continued to complain of generalized weakness and requiring fentanyl injection for pain as she has multiple allergic reaction to narcotics including CODEINE, HYDROCODONE AND TRAMADOL. PHYSICAL EXAMINATION: GENERAL: When I examined her this morning, she looked pale, but no jaundice, cyanosis or thyromegaly. No jugular venous distention. No limb edema. VITAL SIGNS: Her heart rate was 83, blood pressure is 118/73, temperature was 97.2, respiratory rate was 18 and oxygen saturation was 92%. HEAD, EYES, EARS, NOSE, AND THROAT: Showed normocephalic, atraumatic. NECK: Supple. HEART: Showed normal first and second heart sounds. No gallop, rub or murmur. CHEST: Shows central trachea, equal bilateral chest expansion, air entry, vesicular breath sounds, no crepitation or rhonchi. ABDOMEN: Distended, mild diffuse tenderness. No guarding or rigidity. No organomegaly. All hernial orifice intact. Bowel sounds normal. NEUROLOGIC: She is grossly intact. Her intake and output were incompletely recorded. LABORATORY DATA: This morning showed a white cell count of 10,000, hemoglobin 12, hematocrit 37, MCV 83 and platelet count 453,000. His chemistry showed a serum sodium 136, potassium 3.1, chloride 102, bicarbonate 28, anion gap of 6, BUN 7, creatinine was 0.6, estimated GFR was 96 mL per minute. Her glucose 111, calcium was 0.1. Total bilirubin, AST, ALT were normal. Alkaline phosphatase slightly elevated. Total protein 5.5, albumin was 1.7. ASSESSMENT: 1. 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 She also has mild wall thickening of the splenic flexure of the colon. 2. Ascitic fluid, nucleated cells were 1337 of which 21% were mononuclear and 73% polymorphonuclear raising the possibility of peritonitis; however, Dr. Vasquez felt that the peritoneal carcinomatosis can induce this finding and that he would not embark on antibiotic treatment until we get the cultures. 3. Ascitic fluid cultures are so far negative. 4. Tumor markers including CA 19-9 and CA-125 antigens are both elevated. PLAN: My plan is to consult physical and occupational therapy and patient will be discharged either home with home health and/or to a half-way facility if she is unable to take care of herself. PANCHITO/LUAN DR: Paula TID: [id number]
[2021-09-17] MEDS: PANTOPRAZOLE 40 MG TABLET.DR. PO SCH (10:01)
[2021-09-17] MEDS: POTASSIUM CHLORIDE 20 MEQ TABLET.ER. PO SCH ×2 (12:26→17:34)
[2021-09-17] MEDS: fentaNYL PF VIAL 100 MCG/2 ML VIAL IVP PRN (14:29)
[2021-09-17 19:30] VITALS: BP 128/98
[2021-09-18 07:00] VITALS: BP 120/79
[2021-09-18 07:32] LABS: CALCIUM 8.4 mg/dL (8.5-10.1); CREATININE 0.7 mg/dL (0.6-1.0); GFR 80.7; POTASSIUM 4.2 mmol/L (3.5-5.1)
[2021-09-18] MEDS: POTASSIUM CHLORIDE 20 MEQ TABLET.ER. PO SCH ×2 (08:28→12:11)
[2021-09-18] MEDS: PANTOPRAZOLE 40 MG TABLET.DR. PO SCH (08:28)
[2021-09-18] MEDS: IV NORMAL SALINE 1000ML BAG 1,000 ML IV SCH (09:40)
--- NOTE | 2021-09-18 09:44 | PDOC ---
Date of Service: DATE: 09/18/21 TIME: 09:38 Subjective: Subjective: Paracentesis helped abdominal distention some, still uncomfortable particularly when rolls to side - "new level of pain." Doesn't eat much. Has stooled says "after 16 days." Has questions about the plan moving forward - indicates not sure she can manage at home, also indicates going to a care home doesn't sound ideal. Mentions she has family who could help her some. Says "shouldn't we get this taken care of before it spreads?" Objective: Vital Signs: Vital Signs Date Time Temp Pulse Resp B/P (MAP) Pulse Ox O2 Delivery O2 Flow Rate FiO2 09/18/21 07:00 97.6 92 18 120/79 (93) 92 Room Air 97.6 Labs: GRAM STAIN-AER BRE Final PMNS (WBCS): RARE SQUAMOUS EPI CELL: NOT APPLICABLE NO ORGANISMS SEEN . 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 Now appears plan is to DC to home or SNU w/ outpt follow-up w/ nurse obgyn onc. GI-meza, paracentesis PRN, continue acid-platform beater and constipation treatment. Justicifation of Admission Dx: Justifications for Admission: Justification of Admission Dx: Yes JENNIFER REBOLLEDO Sep 18, 2021 09:44
[2021-09-18] MEDS ORDERED: POLYETHYLENE GLYCOL 3350 17 GM PACKET. PO PRN (09:45)
[2021-09-18] MEDS ORDERED: BISACODYL 5 MG TABLET.DR. PO PRN (09:45)
--- NOTE | 2021-09-18 09:53 | PDOC ---
SURGICAL PROGRESS NOTE DATE: 09/18/21 TIME: 09:51 Subjective reviewed notes from weekend unable to tx inpt for storage wharfage clerk/onc plans for skilled vs home with FU Vital Signs Vital Signs Date Time Temp Pulse Resp B/P (MAP) Pulse Ox O2 Delivery O2 Flow Rate FiO2 09/18/21 07:00 97.6 92 18 120/79 (93) 92 Room Air 97.6 I&O Intake and Output 09/18/21 07:00 Intake Total 1260 ml Balance 1260 ml Intake Oral 1260 ml # Voids 2 Labs Laboratory Tests Test 09/17/21 07:10 09/18/21 06:40 White Blood Count 10.0 x10^3/uL (4.0-11.0) Red Blood Count 4.46 x10^6/uL (3.50-5.40) Hemoglobin 12.0 g/dL (12.0-15.5) Hematocrit 37.0 % (36.0-47.0) Mean Corpuscular Volume 83 fL (79-100) Mean Corpuscular Hemoglobin 27 pg (25-35) Mean Corpuscular Hemoglobin Concent 32 g/dL (31-37) Red Cell Distribution Width 13.6 % (11.5-14.5) Platelet Count 453 x10^3/uL (140-400) Neutrophils (%) (Auto) 76 % (31-73) Lymphocytes (%) (Auto) 12 % (24-48) Monocytes (%) (Auto) 12 % (0-9) Eosinophils (%) (Auto) 0 % (0-3) Basophils (%) (Auto) 0 % (0-3) Neutrophils # (Auto) 7.6 x10^3/uL (1.8-7.7) Lymphocytes # (Auto) 1.2 x10^3/uL (1.0-4.8) Monocytes # (Auto) 1.2 x10^3/uL (0.0-1.1) Eosinophils # (Auto) 0.0 x10^3/uL (0.0-0.7) Basophils # (Auto) 0.0 x10^3/uL (0.0-0.2) Sodium Level 136 mmol/L (136-145) 138 mmol/L (136-145) Potassium Level 3.1 mmol/L (3.5-5.1) 4.2 mmol/L (3.5-5.1) Chloride Level 102 mmol/L (98-107) 102 mmol/L (98-107) Carbon Dioxide Level 28 mmol/L (21-32) 25 mmol/L (21-32) Anion Gap 6 (6-14) 11 (6-14) Blood Urea Nitrogen 7 mg/dL (7-20) 6 mg/dL (7-20) Creatinine 0.6 mg/dL (0.6-1.0) 0.7 mg/dL (0.6-1.0) Estimated GFR (Cockcroft-Gault) 96.4 80.7 BUN/Creatinine Ratio 12 (6-20) Glucose Level 111 mg/dL (70-99) 102 mg/dL (70-99) Calcium Level 8.1 mg/dL (8.5-10.1) 8.4 mg/dL (8.5-10.1) Total Bilirubin 0.3 mg/dL (0.2-1.0) Aspartate Amino Transf (AST/SGOT) 23 U/L (15-37) Alanine Aminotransferase (ALT/SGPT) 18 U/L (14-59) Alkaline Phosphatase 128 U/L (46-116) Total Protein 5.5 g/dL (6.4-8.2) Albumin 1.7 g/dL (3.4-5.0) Albumin/Globulin Ratio 0.4 (1.0-1.7) Laboratory Tests Test 09/18/21 06:40 Sodium Level 138 mmol/L (136-145) Potassium Level 4.2 mmol/L (3.5-5.1) Chloride Level 102 mmol/L (98-107) Carbon Dioxide Level 25 mmol/L (21-32) Anion Gap 11 (6-14) Blood Urea Nitrogen 6 mg/dL (7-20) Creatinine 0.7 mg/dL (0.6-1.0) Estimated GFR (Cockcroft-Gault) 80.7 Glucose Level 102 mg/dL (70-99) Calcium Level 8.4 mg/dL (8.5-10.1) Assessment/Plan difficult situation, storage wharfage clerk/onc eval pending no gen surgery plans here will be available as needed Justicifation of Admission Dx: Justifications for Admission: Justification of Admission Dx: Yes URIEL BROWNE APRN Sep 18, 2021 09:53
[2021-09-18] MEDS ORDERED: NAPR-683 PO (10:17)
--- NOTE | 2021-09-18 10:20 | SNU/HH DC ---
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 Condition on Discharge: Stable CODE STATUS: Code Status: Full HOME HEALTH: Face to Face: I certify this patient is under my care and that I, or a nurse practitioner or physician's admissions assistant working with me, had a face to face encounter that meets the physician face to face encounter requirements with this patient on 09/18/2021 RN For Eval/Treatment: Yes Physical Therapy For: Evalulation/Treatment Occupational Therapy For: Evaluation/Treatment Pt Meets Homebound Status: Unsteady balance w/ amb, POST DISCHARGE ORDERS: Activity Instructions for Disc: Activity as tolerated DIET AFTER DISCHARGE: Regular CERTIFICATION STATEMENT: Certification Statement: Certification Statement: Based on the above finding, I certify that this patient is confined to the home and needs intermittent senior living care, physical therapy and/or speech therapy, or continues to need occupational therapy.~ This patient is under my care, and I have initiated the establishment of the plan of care.~ This patient will be followed by myself or a community physician who will periodically review the plan of care. Home Meds Active Scripts Naproxen (NAPROSYN) 500 Mg Tablet, 1 TAB PO BID for pain for 15 Days, #30 TAB 0 Refills Prov:JOSELUIS MILLS MD 09/18/21 Reported Medications Amlodipine Besylate (AMLODIPINE BESYLATE) 10 Mg Tablet, 10 MG PO DAILY for high blood pressure, TAB 09/14/21 JOSELUIS MILLS MD Sep 18, 2021 10:19
--- NOTE | 2021-09-18 13:25 | NUR ---
SW following. Discussed with RN, discharge order for home with home health. Nolberto Rosen RN notified.
--- NOTE | 2021-09-18 17:12 | NUR ---
Discharge Note: MITZY MENDOZA PORT MATILDA Discharge instructions and discharge home medications reviewed with the patientand a copy given. All questions have been answered and understanding verbalized. The following instructions and handouts were given: Appointment with Gyne Oncology in [facility] on September 28 at 2:20 pm; check in at 2:00 pm Home meds as directed Follow up with PCP in a week COVID precautions-hand hygiene, wear mask, and social distancing Discontinued lines and drains:peripheral IV intact, no complications noted Patient discharged to home with Nolberto PETERSEN via wheelchair on RA at 1615.
--- NOTE | 2021-09-21 18:06 | PATHOLOGY ---
Note [facility] Accession Number: [id number] TESTS RESULT FLAG UNITS REF RANGE LAB Clinician Provided Cytology Information No. of containers..01 Other (Miscellaneous) Source: [A] 01 ASCITES DIAGNOSIS: [A] 02 ASCITES POSITIVE FOR MALIGNANCY. THERE ARE MALIGNANT CELLS PRESENT SINGLY AND IN CLUSTERS HAVING CYTOLOGIC FEATURES OF ADENOCARCINOMA. THESE CELLS ARE CK7 AND PAX8 POSITIVE. THESE CELLS ARE WT-1, CK20, AND CALRETININ NEGATIVE. THE FINDINGS ARE SUGGESTIVE OF FEMALE GENITAL TRACT ORIGIN. THE CASE IS ALSO EXAMINED BY DR. LIMA, WHO CONCURS WITH THE DIAGNOSIS. THE RESULTS ARE REPORTED TO DR. LAM ON 09/21/21 AT 5:15 PM. THIS INTERPRETATION INCLUDES EVALUATION OF A CELL BLOCK. Signed out by: 02 Elmo Maynard MD, Pathologist NPI- [id number] Performed by: Saumya Rivera, Lock Maintenance Supervisor ([facility]) Gross description: 24ML, YELLOW, CLOUDY /LCS 09/18/2021 1822 Local FLAG LEGEND: L-Low Normal,H-High Normal,LL-Alert Low,HH-Alert High <-Panic Low,>-Panic High,A-Abnormal,AA-Critical Abnormal Performed at: [place] [facility] [address] [place] [address] Jeffry Albright MD, [address] [facility] [address] [place] [address] Elmo Maynard MD, Specimen Comment: A courtesy copy of this report has been sent to [phone], [phone] Specimen Comment: [phone], , , , Specimen Comment: Report sent to , DR HERNANDEZ, DR MILLS, DR ROGERS Specimen Comment: DR LAM / DR BUTLER Performed at: [address], [place], [place] [id number] MD Jeffry Albright MD Phone: [phone]
--- NOTE | 2021-10-23 19:26 | DS ---
DATE OF DISCHARGE: 09/18/2021 HOSPITAL COURSE: The patient is a 80-year-old female patient who presented to the Emergency Room of [facility] with 2 weeks' history of constipation. The patient stated that she has been unable to pass a bowel movement for approximately 13 days. She said that she has taken MiraLax and other laxatives without success. She also complained of malaise and abdominal bloating as well as pain particularly on moving, but denied any nausea or vomiting. Denied any chills, rigors or fever. Denied any weight loss. She was extensively investigated in the Emergency Room and has had lab work as well as imaging studies. Her lab works are mostly unremarkable. Did have a CT scan of the abdomen and pelvis, which basically showed that: 1. The patient has large amount of intra-abdominal ascites with peritoneal and omental nodularity concerning for peritoneal carcinomatosis. 2. There is mild wall thickening of the splenic flexure of the colon, correlates with colonoscopy. 3. She has heterogenous enhancing mass centrally within the uterus measuring approximately 6 x 4.2 cm. This may be endometrial in nature. Further evaluation with ultrasound is warranted. She does have prominent right inguinal lymph nodes as described and a small hiatal hernia and a small bilateral pleural effusion with adjacent atelectasis. The patient was transferred to [facility] and I did consult the general surgeon as well as the ocular care technologist, chief meter reader as well as oncologist and also the interventional radiologist. She underwent paracentesis and about 4.6 liters of fluid was removed and submitted for cytology and other analysis. The pathologist report showed that there are malignant cells present, singly and in clusters having cytologic features of adenocarcinoma. These cells are CK7 and PAX8 positive. Findings are suggestive of female genital tract origin. The patient was seen in consultation by our chief meter reader and blast furnace operator, Dr. Pipe Soriano, who basically recommended that the patient needs to be transferred to a [facility] care center and recommended Dr. Saumya Mason at [facility]. We did attempt to transfer her, but apparently they have no beds at that time and they recommended that she could be seen faster as an outpatient and as the patient remained stable, I made an appointment for her to be seen at the Dr[facility] at [facility] and was discharged home. PHYSICAL EXAMINATION: GENERAL: On the day of discharge, the patient looked well and was clearly in no apparent respiratory distress. There was no pallor, jaundice, cyanosis. No lymphadenopathy, no thyromegaly, no jugular venous distention. No limb edema. VITAL SIGNS: Her heart rate was 92, blood pressure was 120/79, temperature 97.6, respiratory rate was 18 and oxygen saturation was 92%. HEAD, EYES, EARS, NOSE AND THROAT: Normocephalic, atraumatic. NECK: Supple. HEART: Showed normal first and second heart sounds. No gallop or murmur. CHEST: Clear to auscultation. No crepitation or rhonchi. ABDOMEN: Markedly distended, soft, nontender. NEUROLOGIC: She was grossly intact. LABORATORY DATA: Showed her white cell count is 10,000, hemoglobin 12, hematocrit 37, MCV 83 and platelet count of 453,000 with normal manual differential. Her chemistry showed her serum sodium was 138, potassium 4.2, chloride 102, bicarbonate 25, anion gap of 11, BUN 6, creatinine 0.7. Estimated GFR was 80 mL per minute. Her glucose 102, calcium was 8.4. Her prothrombin time and INR were normal. Her ascitic fluid was yellow, hazy with nucleated cells of 1337, of which 21% were mononuclear cells and 73% were polymorphonuclear. The ascitic fluid glucose was 95. Total protein was 4.5. LDH was 354 and amylase was only 17. Her SARS-CoV-2 antigen rapid testing was positive. DISCHARGE INSTRUCTIONS: The patient was discharged home with home health and arrangement was made for her to be seen at the Oncology Clinic at [facility]. DISCHARGE MEDICATIONS: She was discharged on following medication, naproxen 500 mg twice a day. FINAL DISCHARGE DIAGNOSES: 1. Abdominal pain and 2 weeks' history of constipation with a CT scan of the abdomen and pelvis showing uterine mass, ascites and possible peritoneal carcinomatosis. She also has mild thickening of the splenic flexure of the colon. 2. Ascitic fluid, nucleated cells of 1337, of which 21% were mononuclear and 73% polymorphonuclear raising the possibility of peritonitis; however, Dr. Vasquez felt that peritoneal carcinomatosis can induce this finding that he would not embark on antibiotic treatment until we get the cultures. 3. Ascitic fluid cultures are so far negative. 4. 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 The patient was offered to go to a snf facility; however, the patient refused and therefore, she was discharged home with home health. PRIYA DR: Paula TID: [id number]
== END 2021-09-18 16:15 | disposition home health service (06) | DRG 760 ==
LOC: 4 NORTH 22:45 → 5 NORTH 09-14 19:02
PROVIDERS: ADMIT Internal Medicine; ATTEND Internal Medicine
PROC: 0W9G3ZZ Drainage of Peritoneal Cavity, Percutaneous Approach (ICD-10-PCS; principal; 2021-09-15)
DX: N85.2 Hypertrophy of uterus (principal); N18.6 End stage renal disease; U07.1 COVID-19; I12.0 Hypertensive chronic kidney disease with stage 5 chronic kidney disease or end stage renal disease; J98.11 Atelectasis; R18.8 Other ascites; E78.00 Pure hypercholesterolemia, unspecified; E78.5 Hyperlipidemia, unspecified; K44.9 Diaphragmatic hernia without obstruction or gangrene; K59.00 Constipation, unspecified; Z63.4 Disappearance and death of family member; Z78.9 Other specified health status; Z80.3 Family history of malignant neoplasm of breast; Z82.49 Family history of ischemic heart disease and other diseases of the circulatory system; Z87.891 Personal history of nicotine dependence; Z97.4 Presence of external hearing-aid; Z99.2 Dependence on renal dialysis
CPT/HCPCS: 36415; 49083; 80048; 80053; 82150; 82378; 82945; 83615; 84157; 85025; 85610; 86038; 86301; 86304; 87075; 87426; 88112; 88305; 88341; 88342; 89050; J2405; J3010; J7030; G0378

== ENCOUNTER 2021-09-26 12:19 | Emergency (ER) | payer MEDICARE ==
[~2021-09-26] VITALS: Ht 160 cm; Wt 72.7 kg
[~2021-09-26 12:19] MED LIST: AMLO-187 PO; NAPR-683 PO
[2021-09-26 12:34] VITALS: BP 128/88
== END 2021-09-26 14:54 | disposition left against medical advice (07) ==
LOC: ER 12:19
DX: R10.9 Unspecified abdominal pain (principal); R06.02 Shortness of breath; Z53.21 Procedure and treatment not carried out due to patient leaving prior to being seen by health care provider

== ENCOUNTER 2021-10-15 01:30 | Inpatient (IN) | payer MEDICARE ==
[~2021-10-15] VITALS: Ht 165.1 cm; Wt 76.5 kg
[2021-10-15 02:08] VITALS: BP 90/67
[2021-10-15] MEDS ORDERED: MORPHINE SULFATE 4 MG/ML INJ. IV PRN (04:00)
[2021-10-15] MEDS: IV NORMAL SALINE 1000ML BAG 1,000 ML IV SCH ×2 (04:30→14:51)
--- NOTE | 2021-10-15 05:00 | NUR ---
pt admitted to room [address] [facility]. Admitted to Dr Wolfe for uncontrolled pain with ascites. Pt states she recently was diagnosed with stomach cancer, and started her first chemo treatment 10/03/21, and has not felt well since. She lives at home with who is frequently gone, and has family friend stay with her as caregiver. Pt is A&Ox4, no complaints of pain at this time, A fib on monitor, HR in 90s-120s. Pt complains of dehydration, water given + IVF running. mag 1.[address] [facility] [employer], 2g mag replaced per Dr Wolfe. Consult placed to Dr. Moseley for ascites, pt already seeing him in office. Admission completed, pt resting peacefully.
[2021-10-15] MEDS ORDERED: MAGNESIUM SULFATE 2GM 50 ML IV ONE (05:30)
[2021-10-15 07:00] VITALS: BP 108/74
[2021-10-15] MEDS ORDERED: ELECTROLYTE (NON-ICU) PROTOCOL. MC PRN (09:45)
[2021-10-15] MEDS ORDERED: ACETAMINOPHEN 325 MG TABLET. PO PRN (09:45)
[2021-10-15] MEDS ORDERED: MORPHINE SULFATE 2 MG/ML INJ. IV PRN ×2 (09:45)
--- NOTE | 2021-10-15 10:02 | PDOC1 ---
History and Physical Date of Service: DOS: DATE: 10/15/21 TIME: 09:47 Chief Complaint: Chief Complain: mouth pain, weakness, decreased PO intake History of Present Illness: HPI: Patient is a 80-year-old white female presented to outside emergency room overnight due to mouth pain and decreased p.o. intake. Patient was diagnosed with an intra-abdominal type cancer about a month ago. Recently started on chemo through [facility]. Says all her current symptoms started after starting chemo. Patient also with notable abdominal distention on presentation with ascites. She does undergo frequent paracentesis. At outside emergency room yesterday patient provided fluids and Magic mouthwash. Said this helped her oral pain significantly. She actually was requesting to discharge home. However during the discharge process she started developing some pain desired admission then. We are contacted here for transfer. When evaluated this morning patient was resting in bed eating a piece of gallo. Says she was still having pain in her mouth but mouthwash is helping. GI consulted regarding ascites. Can tap at bedside this afternoon if needed. Past Medical/Surgical History: PMH/PSH: Intra-abdominal cancer on active chemo. Denies any other medical complaints because she does not see the doctor Allergies: Allergies: Coded Allergies: codeine (Verified Allergy, Severe, 09/13/21) acetaminophen (Verified Allergy, Intermediate, 09/13/21) hydrocodone (Verified Allergy, Intermediate, 09/13/21) tramadol (Verified Allergy, Intermediate, 09/13/21) Family History: Family History: Patient does not know Social History: Social History: Denies alcohol tobacco drug use Current Medications: Current Medications Current Medications Morphine Sulfate (Morphine Sulfate) 4 mg PRN Q2HR PRN IV SEVERE PAIN 7-10; Start 10/15/21 at 04:00 Sodium Chloride 1,000 ml @ 75 mls/hr [id number] IV Last administered on 10/15/21at 04:30; Start 10/15/21 at 04:30 Magnesium Sulfate 50 ml @ 25 mls/hr 1X ONCE IV Last administered on 10/15/21at 05:21; Start 10/15/21 at 05:30; Stop 10/15/21 at 07:29; Status DC Multi-Ingredient Mouthwash/Gargle (Magic Mouthwash) 10 ml PRN QID PRN PO MOUTH PAIN; Start 10/15/21 at 09:45 Ondansetron HCl (Zofran) 4 mg PRN Q6HRS PRN IVP NAUSEA/VOMITING; Start 10/15/21 at 09:45; Status UNV Prochlorperazine Edisylate (Compazine) 10 mg PRN Q6HRS PRN IVP NAUSEA/VOMITING; Start 10/15/21 at 09:45; Status UNV Calcium Carbonate/ Glycine (Tums) 500 mg PRN Q3HRS PRN PO UPSET STOMACH; Start 10/15/21 at 09:45; Status UNV Zolpidem Tartrate (Ambien) 5 mg PRN QHS PRN PO INSOMNIA, MAY REPEAT IN 1HR; Start 10/15/21 at 09:45; Status UNV Info (Non-Icu Electrolyte Protocol) 1 ea PRN DAILY PRN MC SEE COMMENTS; Start 10/15/21 at 09:45; Status UNV Morphine Sulfate (Morphine Sulfate) 1 mg PRN Q1HR PRN IV PAIN; Start 10/15/21 at 09:45; Status UNV Morphine Sulfate (Morphine Sulfate) 2 mg PRN Q1HR PRN IV PAIN; Start 10/15/21 at 09:45; Status UNV Acetaminophen (Tylenol) 650 mg PRN Q6HRS PRN PO Headaches, Temp > 101.5F; Start 10/15/21 at 09:45; Status UNV Senna/Docusate Sodium (Senna Plus) 1 tab BID PO ; Start 10/15/21 at 21:00; Status UNV Heparin Sodium (Porcine) (Heparin Sodium) 5,000 unit Q8HRS SQ ; Start 10/15/21 at 14:00; Status UNV Active Scripts Active Naprosyn (Naproxen) 500 Mg Tablet 1 Tab PO BID 15 Days ROS: Review of Systems Review of System Unless noted in HPI 14 point review of systems was negative Physical Exam: Vital Signs: Vital Signs Date Time Temp Pulse Resp B/P (MAP) Pulse Ox O2 Delivery O2 Flow Rate FiO2 10/15/21 07:00 98.3 103 17 108/74 (85) 95 Room Air 98.3 Physcial Exam: GEN: Mild distress HEENT: Somewhat erythematous. No apparent open lesions or sores. Some residual food in her mouth. EYES: Extraocular muscles are intact, pupil are equally round and reactive to light and accommodation MUSCULOSKELETAL: Well developed , well nourished, good range of motion ENDOCRINE: No thyromegaly was palpated LYMPHATICS: No cervical chain or axillary nodes were noted HEMATOPOIETIC: No bruising NECK: Supple, no JVD, no thyromegaly was noted LUNGS: Clear to auscultation in all lung ibanez without rhonchi or wheezing HEART: RRR, S1, S2 present. Peripheral pulses intact, no obvious murmurs noted ABDOMEN: Distended somewhat tense EXTREMITIES: Without clubbing, cyanosis, or edema. Pedal pulses intact. NEUROLOGIC: Normal speech and tone. A&O x 3, moves all extremities, no obvious focal deficits PSYCHIATRIC: Normal affect, normal mood. Stable SKIN: No ulcerations or rashes, good skin turgor, no jaundice VASCULAR: Good capillary refill, neurovascular bundle appears to be intact Assessment/Plan Assessment/Plan Mouth sores decreased p.o. intake likely secondary to side effect of chemotherapy, intra-abdominal malignancy, ascites -Present outside emergency room mouth pain decreased intake. Also with ascites transferred here -Labs unremarkable at outside facility; do not see that any imaging was performed. -Given allergies fentanyl for general pain control. Magic mouthwash for mouth pain -If GI recommends paracentesis I can perform this afternoon at bedside -Diet as tolerated -DVT prophylaxis -Recommend she resume regular follow-up with oncology doctors at [facility] Justifications for Admission Other Justification DYANA MURRELL MD Oct 15, 2021 10:02
[2021-10-15 11:00] VITALS: BP 100/68
[2021-10-15] MEDS ORDERED: PANTOPRAZOLE 40 MG TABLET.DR. PO SCH (11:00)
[2021-10-15 11:08] LABS: BASO % 0 % (0-3); EOS % 1 % (0-3); HEMATOCRIT 32.2 % (36.0-47.0); HEMOGLOBIN 10.4 g/dL (12.0-15.5); LYMPH # 0.5 x10^3/uL (1.0-4.8); LYMPH % 11 % (24-48); MEAN CORPUSCULAR HEMOGLOBIN 26 pg (25-35); MEAN CORPUSCULAR HGB CONC 32 g/dL (31-37); MEAN CORPUSCULAR VOLUME 81 fL (79-100); MONO % 1 % (0-9); NEUT # 4.3 x10^3/uL (1.8-7.7); NEUT % 87 % (31-73); PLATELET COUNT 175 x10^3/uL (140-400); RED BLOOD COUNT 3.99 x10^6/uL (3.50-5.40); RED CELL DISTRIBUTION WIDTH 14.6 % (11.5-14.5); WHITE BLOOD COUNT 4.9 x10^3/uL (4.0-11.0)
[2021-10-15 11:24] LABS: ALBUMIN 1.3 g/dL (3.4-5.0); ALBUMIN/GLOBULIN RATIO 0.3 (1.0-1.7); CALCIUM 7.7 mg/dL (8.5-10.1); CREATININE 0.8 mg/dL (0.6-1.0); GFR 69.2; POTASSIUM 3.9 mmol/L (3.5-5.1); TOTAL BILIRUBIN 0.3 mg/dL (0.2-1.0); TOTAL PROTEIN 5.1 g/dL (6.4-8.2)
[2021-10-15] MEDS: ONDANSETRON PF 4 MG/2 ML VIAL. IVP PRN ×2 (11:24→17:45)
[2021-10-15] MEDS: fentaNYL PF VIAL 100 MCG/2 ML VIAL IVP PRN (11:30)
--- NOTE | 2021-10-15 12:36 | PDOC2 ---
GI CONSULT Date of Service: DATE: 10/15/21 TIME: 12:28 Reason For Consult: Ascites HPI: HPI: 80 y/o female we initially saw in August when presented with ascites. 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 Since has needed roughly weekly paracenteses due to accumulation of fluid; last done last week historically. Has been receiving chemoRx (what?) and has SE's from this, chiefly stomatitis; when seen at [facility] ER yesterday apparently given Magic Mouthwash which helped. Has had occasional HB in the past. No other chronic GI history. No prior scopes. PMH: PMH: HTN, HLP. Bunionectomy. FH: Family History: Cancer (mother/breast) Social History: Smoke: Quit ALCOHOL: rare Drugs: None ROS: GEN: Denies fevers, chills, sweats HEENT: Denies blurred vision, sore throat CV: Denies chest pain RESP: Denies shortness of air, cough GI: Per HPI : Denies hematuria, dysuria ENDO: Denies weight changes NEURO: Denies confusion, dizziness MSK: Denies weakness, joint pain/swelling SKIN: Denies jaundice, pruritus Vitals: Vitals: Vital Signs Date Time Temp Pulse Resp B/P (MAP) Pulse Ox O2 Delivery O2 Flow Rate FiO2 10/15/21 11:30 17 95 Room Air 10/15/21 07:00 98.3 103 108/74 (85) 98.3 Labs: Labs: Laboratory Tests Test 10/15/21 10:45 White Blood Count 4.9 x10^3/uL (4.0-11.0) Red Blood Count 3.99 x10^6/uL (3.50-5.40) Hemoglobin 10.4 g/dL (12.0-15.5) Hematocrit 32.2 % (36.0-47.0) Mean Corpuscular Volume 81 fL (79-100) Mean Corpuscular Hemoglobin 26 pg (25-35) Mean Corpuscular Hemoglobin Concent 32 g/dL (31-37) Red Cell Distribution Width 14.6 % (11.5-14.5) Platelet Count 175 x10^3/uL (140-400) Neutrophils (%) (Auto) 87 % (31-73) Lymphocytes (%) (Auto) 11 % (24-48) Monocytes (%) (Auto) 1 % (0-9) Eosinophils (%) (Auto) 1 % (0-3) Basophils (%) (Auto) 0 % (0-3) Neutrophils # (Auto) 4.3 x10^3/uL (1.8-7.7) Lymphocytes # (Auto) 0.5 x10^3/uL (1.0-4.8) Monocytes # (Auto) 0.0 x10^3/uL (0.0-1.1) Eosinophils # (Auto) 0.0 x10^3/uL (0.0-0.7) Basophils # (Auto) 0.0 x10^3/uL (0.0-0.2) Sodium Level 137 mmol/L (136-145) Potassium Level 3.9 mmol/L (3.5-5.1) Chloride Level 104 mmol/L (98-107) Carbon Dioxide Level 24 mmol/L (21-32) Anion Gap 9 (6-14) Blood Urea Nitrogen 21 mg/dL (7-20) Creatinine 0.8 mg/dL (0.6-1.0) Estimated GFR (Cockcroft-Gault) 69.2 BUN/Creatinine Ratio 26 (6-20) Glucose Level 126 mg/dL (70-99) Calcium Level 7.7 mg/dL (8.5-10.1) Total Bilirubin 0.3 mg/dL (0.2-1.0) Aspartate Amino Transf (AST/SGOT) 37 U/L (15-37) Alanine Aminotransferase (ALT/SGPT) 31 U/L (14-59) Alkaline Phosphatase 159 U/L (46-116) Total Protein 5.1 g/dL (6.4-8.2) Albumin 1.3 g/dL (3.4-5.0) Albumin/Globulin Ratio 0.3 (1.0-1.7) Allergies: Coded Allergies: codeine (Verified Allergy, Severe, 09/13/21) acetaminophen (Verified Allergy, Intermediate, 09/13/21) hydrocodone (Verified Allergy, Intermediate, 09/13/21) tramadol (Verified Allergy, Intermediate, 09/13/21) Medications: Current Medications Medications (Trade) Dose Ordered Sig/Rohit Route PRN Reason Start Time Stop Time Status Last Admin Dose Admin Sodium Chloride 1,000 ml @ 75 mls/hr [id number] IV 10/15/21 04:30 10/15/21 04:30 Magnesium Sulfate 50 ml @ 25 mls/hr 1X ONCE IV 10/15/21 05:30 10/15/21 07:29 DC 10/15/21 05:21 Ondansetron HCl (Zofran) 4 mg PRN Q6HRS PRN IVP NAUSEA/VOMITING 10/15/21 09:45 10/15/21 11:24 Fentanyl Citrate (Fentanyl 2ml Vial) 25 mcg PRN Q2HR PRN IVP PAIN 10/15/21 10:00 10/15/21 11:30 Imaging: Imaging: None available for review. PE: GEN: NAD HEENT: Atraumatic, PERRLA LUNGS: CTAB HEART: RRR, no murmurs ABD: NABS, Doughy consistency/mildly distended/NT, no masses palpable EXTREMITY: No edema SKIN: No rashes, no jaundice NEURO/PSYCH: A & O 3 A/P: A/P: IMP: Ascites, malignant, from CANE FLUME WATCHER primary. Stomatitis from ChemoRx. Some amount of GERD. REC: Continue Magic Mouthwash prn. Apparently scheduled for outpatient paracentesis tomorrow AM; will inform radiology and can be done while here. PPI if not on. Other pending. BRENDON NELSON MD Oct 15, 2021 12:36
[2021-10-15] MEDS: HEPARIN for SUB-Q USE 5,000 UNIT/ML VIAL. SQ SCH ×2 (14:00→20:57)
[2021-10-15] MEDS: PROCHLORPERAZINE 10 MG/2 ML VIAL. IVP PRN ×2 (14:57→20:57)
[2021-10-15 15:00] VITALS: BP 106/65
[2021-10-15] MEDS: LIDO:MAALOX:BENADRYL 1:1:1 180 ML BOTTLE. PO PRN (17:49)
[2021-10-15 19:00] VITALS: BP 111/66
[2021-10-15] MEDS: SENNOSIDES/DOCUSATE 8.6/50MG TABLET. PO SCH (20:57)
[2021-10-15 23:00] VITALS: BP 117/69
[2021-10-16] VITALS (10 sets, daily range): BP systolic 98–128; BP diastolic 53–79
[2021-10-16] MEDS: ONDANSETRON PF 4 MG/2 ML VIAL. IVP PRN ×2 (00:12→07:19)
[2021-10-16] MEDS: IV NORMAL SALINE 1000ML BAG 1,000 ML IV SCH ×2 (03:36→20:30)
[2021-10-16] MEDS: PROCHLORPERAZINE 10 MG/2 ML VIAL. IVP PRN ×2 (03:36→11:02)
[2021-10-16] MEDS: fentaNYL PF VIAL 100 MCG/2 ML VIAL IVP PRN (03:46)
[2021-10-16] MEDS: HEPARIN for SUB-Q USE 5,000 UNIT/ML VIAL. SQ SCH ×3 (06:00→20:44)
[2021-10-16] MEDS: SENNOSIDES/DOCUSATE 8.6/50MG TABLET. PO SCH ×2 (09:00→19:46)
--- NOTE | 2021-10-16 09:59 | PDOC ---
Date of Service: DATE: 10/16/21 TIME: 09:55 Subjective: Subjective: Feels miserable, says needs paracentesis now, asking for ice chips. Objective: Objective: D/w nurse - not sure when paracentesis will happen, struggling w/ nausea. Vital Signs: Vital Signs Date Time Temp Pulse Resp B/P (MAP) Pulse Ox O2 Delivery O2 Flow Rate FiO2 10/16/21 07:00 97.2 114 22 107/64 (78) 95 Room Air 97.2 Labs: Laboratory Tests Test 10/15/21 10:45 White Blood Count 4.9 x10^3/uL Red Blood Count 3.99 x10^6/uL Hemoglobin 10.4 g/dL Hematocrit 32.2 % Mean Corpuscular Volume 81 fL Mean Corpuscular Hemoglobin 26 pg Mean Corpuscular Hemoglobin Concent 32 g/dL Red Cell Distribution Width 14.6 % Platelet Count 175 x10^3/uL Neutrophils (%) (Auto) 87 % Lymphocytes (%) (Auto) 11 % Monocytes (%) (Auto) 1 % Eosinophils (%) (Auto) 1 % Basophils (%) (Auto) 0 % Neutrophils # (Auto) 4.3 x10^3/uL Lymphocytes # (Auto) 0.5 x10^3/uL Monocytes # (Auto) 0.0 x10^3/uL Eosinophils # (Auto) 0.0 x10^3/uL Basophils # (Auto) 0.0 x10^3/uL Sodium Level 137 mmol/L Potassium Level 3.9 mmol/L Chloride Level 104 mmol/L Carbon Dioxide Level 24 mmol/L Anion Gap 9 Blood Urea Nitrogen 21 mg/dL Creatinine 0.8 mg/dL Estimated GFR (Cockcroft-Gault) 69.2 BUN/Creatinine Ratio 26 Glucose Level 126 mg/dL Calcium Level 7.7 mg/dL Total Bilirubin 0.3 mg/dL Aspartate Amino Transf (AST/SGOT) 37 U/L Alanine Aminotransferase (ALT/SGPT) 31 U/L Alkaline Phosphatase 159 U/L Total Protein 5.1 g/dL Albumin 1.3 g/dL Albumin/Globulin Ratio 0.3 PE: GEN: uncomfortable, holding emesis basin LUNGS: clear anteriorly HEART: tachycardic ABD: distended/right NEURO/PSYCH: A & O 3 A/P: Recurrent ascites - malignant (PLANT CUSTODIAN primary, on chemo) Nausea -- Awaiting paracentesis. Okay to have ice chips per GI. IV PPI. Justicifation of Admission Dx: Justifications for Admission: Justification of Admission Dx: Yes JENNIFER REBOLLEDO Oct 16, 2021 09:59
--- NOTE | 2021-10-16 10:52 | NUR ---
SW following. Discussed with RN, pt from home with , room air, ada diet. GI following. RN advised no SW needs at this time. SW will continue to follow.
--- NOTE | 2021-10-16 11:08 | PDOC ---
[employer] PROGRESS NOTE Date of Service DOS: DATE: 10/16/21 TIME: 11:07 Chief Complaint Chief Complaint Mouth sores decreased p.o. intake likely secondary to side effect of ch emotherapy, intra-abdominal malignancy, ascites -Present outside emergency room mouth pain decreased intake. Also with ascites transferred here -Labs unremarkable at outside facility; do not see that any imaging was performed. -Given allergies fentanyl for general pain control. Magic mouthwash for mouth pain -Diet as tolerated -DVT prophylaxis -Recommend she resume regular follow-up with oncology doctors at [facility] History of Present Illness History of Present Illness 10/16 Patient evaluated examined at bedside. Resting complaint fair bit of pain in her abdomen. Eager for paracentesis. Continue current treatments. We will follow up with patient after paracentesis. Vitals/I&O Vitals/I&O: Vital Signs Date Time Temp Pulse Resp B/P (MAP) Pulse Ox O2 Delivery O2 Flow Rate FiO2 10/16/21 08:00 Room Air 10/16/21 07:00 97.2 114 22 107/64 (78) 95 97.2 I & O 10/15/21 10/15/21 10/16/21 15:00 23:00 07:00 Intake Total 200 ml 400 ml 100 ml Balance 200 ml 400 ml 100 ml Physical Exam General: Alert, Oriented X3, moderate distress Heart: Regular rate Lungs: Clear Abdomen: Other (distended, tender) Extremities: No edema, Normal pulses Skin: No significant lesion Comment Review of Relevant I have reviewed the following items tejas (where applicable) has been applied. Justifications for Admission Other Justification DYANA MURRELL MD Oct 16, 2021 11:08
[2021-10-16] MEDS: ALBUMIN HUMAN 25% 100 ML IV ONE ×2 (11:56→11:59)
[2021-10-16] MEDS ORDERED: ALBUMIN HUMAN 25% 50 ML IV ONE (13:00)
[2021-10-16] MEDS: PANTOPRAZOLE IV PUSH 40 MG VIAL. IVP SCH (15:41)
--- NOTE | 2021-10-16 16:28 | RAD ---
Procedure: Paracentesis. Clinical Indication: Adult female with recurrent abdominal ascites Medications: Local anesthesia only Technique and Findings: Following informed consent, the patient was prepped and draped in the usual s terile fashion. 2% lidocaine was used to achieve local anesthesia over the right lower quadrant of th e abdomen. Ultrasound interrogation of the abdomen was performed, and demonstrated free ascites. A sm all skin incision was made and a [id number] catheter was advanced under ultrasound guidance into the peritoneal cavity. 4.6 liters of thin yellow ascites was then removed. The catheter was removed and hemostasis was readily achieved with manual compression. The patient tolerated the procedure well and left the radiology department in stable condition. Impression: 1. Paracentesis as described. Electronically signed by: Jim Blake MD (10/16/2021 4:25 PM) [id number]
[2021-10-16 18:35] LABS: BILIRUBIN,URINE MODERATE (NEG); CLARITY,URINE HAZY; COLOR,URINE AMBER
[2021-10-16 18:36] LABS: NITRITE,URINE NEGATIVE (NEG); PROTEIN,URINE 30 mg/dL (NEG-TRACE)
[2021-10-16 18:37] LABS: AMORPHOUS SEDIMENT,UR PRESENT /HPF; HYALINE CASTS, URINE MANY /HPF
[2021-10-16 18:38] LABS: BACTERIA,URINE MANY /HPF (0-FEW); GRANULAR CASTS,URINE FEW /HPF
[2021-10-17 03:00] VITALS: BP 92/65
[2021-10-17] MEDS: HEPARIN for SUB-Q USE 5,000 UNIT/ML VIAL. SQ SCH ×3 (04:24→20:07)
[2021-10-17 07:00] VITALS: BP 143/100
[2021-10-17 07:46] LABS: BASO % 1 % (0-3); EOS % 5 % (0-3); HEMATOCRIT 28.7 % (36.0-47.0); HEMOGLOBIN 9.5 g/dL (12.0-15.5); LYMPH # 0.4 x10^3/uL (1.0-4.8); LYMPH % 65 % (24-48); MEAN CORPUSCULAR HEMOGLOBIN 26 pg (25-35); MEAN CORPUSCULAR HGB CONC 33 g/dL (31-37); MEAN CORPUSCULAR VOLUME 78 fL (79-100); MONO % 9 % (0-9); NEUT # 0.1 x10^3/uL (1.8-7.7); NEUT % 20 % (31-73); PLATELET COUNT 137 x10^3/uL (140-400); RED BLOOD COUNT 3.67 x10^6/uL (3.50-5.40); RED CELL DISTRIBUTION WIDTH 14.2 % (11.5-14.5)
[2021-10-17 07:58] LABS: WHITE BLOOD COUNT 0.6 x10^3/uL (4.0-11.0)
[2021-10-17] MEDS: SENNOSIDES/DOCUSATE 8.6/50MG TABLET. PO SCH ×2 (08:07→20:07)
[2021-10-17] MEDS: PANTOPRAZOLE IV PUSH 40 MG VIAL. IVP SCH (08:08)
[2021-10-17] MEDS: LIDO:MAALOX:BENADRYL 1:1:1 180 ML BOTTLE. PO PRN (10:18)
[2021-10-17] MEDS: IV NORMAL SALINE 1000ML BAG 1,000 ML IV SCH (10:29)
--- NOTE | 2021-10-17 10:37 | PDOC ---
Date of Service: DATE: 10/17/21 TIME: 10:33 Subjective: Subjective: Better after paracentesis, got a little breakfast down, would like Magic Mouthwash. Objective: Vital Signs: Vital Signs Date Time Temp Pulse Resp B/P (MAP) Pulse Ox O2 Delivery O2 Flow Rate FiO2 10/17/21 07:00 98.1 90 15 143/100 (114) Room Air 95.0 98.1 10/17/21 03:00 97 Labs: Laboratory Tests Test 10/16/21 15:40 10/17/21 07:20 Urine Collection Type Unknown Urine Color Tete Urine Clarity Hazy Urine pH 6.0 Urine Specific Cowen >=1.030 Urine Protein 30 mg/dL Urine Glucose (UA) Negative mg/dL Urine Ketones (Stick) 40 mg/dL Urine Blood Large Urine Nitrite Negative Urine Bilirubin Moderate Urine Urobilinogen Dipstick 1.0 mg/dL Urine Leukocyte Esterase Small Urine RBC 3-5 /HPF Urine WBC 5-10 /HPF Urine Squamous Epithelial Cells Mod /LPF Urine Amorphous Sediment Present /HPF Urine Bacteria Many /HPF Urine Hyaline Casts Many /HPF Urine Granular Casts Few /HPF Urine Mucus Marked /LPF White Blood Count 0.6 x10^3/uL Red Blood Count 3.67 x10^6/uL Hemoglobin 9.5 g/dL Hematocrit 28.7 % Mean Corpuscular Volume 78 fL Mean Corpuscular Hemoglobin 26 pg Mean Corpuscular Hemoglobin Concent 33 g/dL Red Cell Distribution Width 14.2 % Platelet Count 137 x10^3/uL Neutrophils (%) (Auto) 20 % Lymphocytes (%) (Auto) 65 % Monocytes (%) (Auto) 9 % Eosinophils (%) (Auto) 5 % Basophils (%) (Auto) 1 % Neutrophils # (Auto) 0.1 x10^3/uL Lymphocytes # (Auto) 0.4 x10^3/uL Monocytes # (Auto) 0.0 x10^3/uL Eosinophils # (Auto) 0.0 x10^3/uL Basophils # (Auto) 0.0 x10^3/uL Imaging: Paracentesis 10/16 4.6L PE: GEN: NAD - was sleeping, easily aroused LUNGS: CTAB HEART: RRR ABD: softer NEURO/PSYCH: A & O 3 A/P: Malignant ascites (WAITER/WAITRESS CABIN CLASS primary, on chemo through [employer]) Stomatitis Leukopenia -- Paracentesis PRN. Update: asked to revisit by nurse at 12:35 p.m. "Blood in stool" earlier today, blood in commode just now - a couple clots mixed with urine (but no stool now). Pt says "it comes when it wants" and first occurred this morning. Abd pain before paracentesis, not now. No diarrhea or constipation, no straining. Dizziness with standing - chronic issue x 2 months. No previous 'scopes. Recheck Hgb, observe for now. Will d/w Dr. Moseley. Justicifation of Admission Dx: Justifications for Admission: Justification of Admission Dx: Yes JENNIFER REBOLLEDO Oct 17, 2021 10:37
[2021-10-17 11:00] VITALS: BP 111/70
--- NOTE | 2021-10-17 11:55 | EKG ---
[facility] [address] [place] [address] Test Date: 2021-10-17 Test Time: 11:56:38 Pat Name: CONSTANCE MNEDOZA Department: Room: 538 1 Gender: F Healthcare Account Manager: CIARA : 1940 Requested By: RAMESH CLARK Order Number: [id number] Reading MD: Weston Jean Baptiste MD Measurements Intervals [place] Rate: 109 P: 49 CO: 136 QRS: -22 QRSD: 118 T: 146 QT: 364 QTc: 492 Interpretive Statements SINUS TACHYCARDIA LBBB Electronically Signed On 10-23-2021 11:52:20 DIVISION SERGEANT by Weston Jean Baptiste MD
--- NOTE | 2021-10-17 13:25 | PDOC2 ---
NATALIYA SOLIS WAXING MACHINE OPERATOR HELPER 10/17/21 1324: CARDIAC CONSULT DATE OF CONSULT Date of Consult DATE: 10/17/21 TIME: 13:11 REASON FOR CONSULT Reason for Consult: Arrhythmia REFERRING PHYSICIAN Referring Physician: Terrence SOURCE Source: Chart review, Patient HISTORY OF PRESENT ILLNESS HISTORY OF PRESENT ILLNESS This is a 80 yo female admitted for complains of mouth pain. She was recently diagnosed with malignant ascites, unclear what type of iuntraabd CA she has but has been started recently on chemo and has been receiving frequent paracentesis. Reported haing chemo Saturday last week and apparently passed out and unclear duration but noted with fecal incontinence at that time. Unclear what type of chemo she had but she mentioned antidote and also having chemo when this happened. No hx of CAD, VTE, arrhythmias in the past. "I was healthy as a horse" as shedescribed. No further episodes of syncope but has been having frequent PACs and possible PSVT hence this consult. PAST MEDICAL HISTORY Cardiovascular: HTN, Hyperlipidemia GI: Other (intra abdominal CA with malignant ascites) PAST SURGICAL HISTORY Past Surgical History: Other (paracentesis, bunionectomy; portacath placement) FAMILY HISTORY Family History noncontributory to CV SOCIAL HISTORY Smoke: No ALCOHOL: none Drugs: None ALLERGIES ALLERGIES: Coded Allergies: codeine (Verified Allergy, Severe, 09/13/21) acetaminophen (Verified Allergy, Intermediate, 09/13/21) hydrocodone (Verified Allergy, Intermediate, 09/13/21) tramadol (Verified Allergy, Intermediate, 09/13/21) ROS Review of System 14 point ROS evaluated with pertinent positives noted per HPI PHYSICAL EXAM General: Alert, Oriented X3, Cooperative, No acute distress HEENT: Atraumatic, Other (PO[place]) Lungs: Other (diminished) Heart: Regular rate (SR/ST with PACs), Normal S1, Normal S2, No murmurs Abdomen: Soft, No tenderness, Other (ascites) Extremities: No cyanosis Skin: No breakdown, No significant lesion Neuro: Normal speech, Sensation intact Psych/Mental Status: Mental status NL, Mood NL MUSCULOSKELETAL: Osteoarthritic changes both hands VITALS/I&O VITALS/I&O: Vital Signs Date Time Temp Pulse Resp B/P (MAP) Pulse Ox O2 Delivery O2 Flow Rate FiO2 10/17/21 07:00 98.1 90 15 143/100 (114) Room Air 95.0 98.1 10/17/21 03:00 97 I & O 10/16/21 10/16/21 10/17/21 15:00 23:00 07:00 Intake Total 0 ml 120 ml 120 ml Output Total 4600 ml 1 ml Balance -4600 ml 120 ml 119 ml LABS Lab: Laboratory Tests Test 10/16/21 15:40 10/17/21 07:20 Urine Collection Type Unknown Urine Color Tete Urine Clarity Hazy Urine pH 6.0 (<5.0-8.0) Urine Specific [place] >=1.030 (1.000-1.030) Urine Protein 30 mg/dL (NEG-TRACE) Urine Glucose (UA) Negative mg/dL (NEG) Urine Ketones (Stick) 40 mg/dL (NEG) Urine Blood Large (NEG) Urine Nitrite Negative (NEG) Urine Bilirubin Moderate (NEG) Urine Urobilinogen Dipstick 1.0 mg/dL (0.2 mg/dL) Urine Leukocyte Esterase Small (NEG) Urine RBC 3-5 /HPF (0-2) Urine WBC 5-10 /HPF (0-4) Urine Squamous Epithelial Cells Mod /LPF Urine Amorphous Sediment Present /HPF Urine Bacteria Many /HPF (0-FEW) Urine Hyaline Casts Many /HPF Urine Granular Casts Few /HPF Urine Mucus Marked /LPF White Blood Count 0.6 x10^3/uL (4.0-11.0) *L Red Blood Count 3.67 x10^6/uL (3.50-5.40) Hemoglobin 9.5 g/dL (12.0-15.5) L Hematocrit 28.7 % (36.0-47.0) L Mean Corpuscular Volume 78 fL (79-100) L Mean Corpuscular Hemoglobin 26 pg (25-35) Mean Corpuscular Hemoglobin Concent 33 g/dL (31-37) Red Cell Distribution Width 14.2 % (11.5-14.5) Platelet Count 137 x10^3/uL (140-400) L Neutrophils (%) (Auto) 20 % (31-73) L Lymphocytes (%) (Auto) 65 % (24-48) H Monocytes (%) (Auto) 9 % (0-9) Eosinophils (%) (Auto) 5 % (0-3) H Basophils (%) (Auto) 1 % (0-3) Neutrophils # (Auto) 0.1 x10^3/uL (1.8-7.7) L Lymphocytes # (Auto) 0.4 x10^3/uL (1.0-4.8) L Monocytes # (Auto) 0.0 x10^3/uL (0.0-1.1) Eosinophils # (Auto) 0.0 x10^3/uL (0.0-0.7) Basophils # (Auto) 0.0 x10^3/uL (0.0-0.2) Laboratory Tests 10/17/21 07:20 ASSESSMENT/PLAN ASSESSMENT/PLAN 1. Malignant ascites: hemoc consulted. S/P paracentesis is on chemotherapy 2. Hx of HTN and HLP 3. Stomatitis r/t chemo 4. Possible cardiomyopathy 5. Arrhythmia: SR/ST with frequent PACs 6. Pancytopenia 7. Reported syncope: last week Saturday. Seizure? Recommendations 1. TSH, BMP and Mg. TTE 2. Will start on BB iff BP trend allows ERVIN GRIER MD 10/17/212006: CARDIAC CONSULT ASSESSMENT/PLAN ASSESSMENT/PLAN Patient seen and examined. Agree with LAWN SERVICE WORKER's assessment and plan. Tele showed sinus tachy with frequent PAC's Agree with beta blockers if BP allows Check 2D echo to assess LVF and r/o pericardial effusion Malignant ascites s/p paracentesis, chemo per Onc team Thank you for your consultation NATALIYA SOLIS APRN Oct 17, 2021 13:24 ERVIN GRIER MD Oct 17, 2021 20:07
[2021-10-17 13:36] LABS: HEMATOCRIT 32.3 % (36.0-47.0); HEMOGLOBIN 10.3 g/dL (12.0-15.5)
[2021-10-17 13:50] LABS: CALCIUM 7.6 mg/dL (8.5-10.1); CREATININE 0.7 mg/dL (0.6-1.0); GFR 80.7; MAGNESIUM 1.8 mg/dL (1.8-2.4); POTASSIUM 3.7 mmol/L (3.5-5.1)
[2021-10-17 14:09] LABS: PROTHROMBIN TIME PATIENT 14.1 SEC (11.7-14.0)
--- NOTE | 2021-10-17 14:59 | PDOC ---
[facility] [facility] PROGRESS NOTE Date of Service DOS: DATE: 10/17/21 TIME: 14:56 Chief Complaint Chief Complaint Mouth sores decreased p.o. intake likely secondary to side effect of lizeth motherapy, intra-abdominal malignancy, ascites -Present outside emergency room mouth pain decreased intake. Also with ascites transferred here -Labs unremarkable at outside facility; do not see that any imaging was performed. -Given allergies fentanyl for general pain control. Magic mouthwash for mouth pain -Diet as tolerated -DVT prophylaxis -Recommend she resume regular follow-up with oncology doctors at [facility] History of Present Illness History of Present Illness 10/17/21 No acute events overnight. Patient seen examined bedside. Patient clinically feels better. She did have a bloody bowel movement in which it was collected for blood. WBC dropped to 0.6 today. Hematology consulted for possible Granix injection. Patient had a paracentesis yesterday with 4.6 L fluid output. Patient with tachycardia in the 130s. 250 NS bolus given. She did have some PVCs and irregular rhythms. Cardiology is consulted. Patient's chart, labs, images were reviewed and discussed with RN 10/16 Patient evaluated examined at bedside. Resting complaint fair bit of pain in her abdomen. Eager for paracentesis. Continue current treatments. We will follow up with patient after paracentesis. Vitals/I&O Vitals/I&O: Vital Signs Date Time Temp Pulse Resp B/P (MAP) Pulse Ox O2 Delivery O2 Flow Rate FiO2 10/17/21 11:00 97.6 106 12 111/70 (84) 92 Room Air 97.6 10/17/21 07:00 95.0 I & O 10/16/21 10/16/21 10/17/21 15:00 23:00 07:00 Intake Total 0 ml 120 ml 120 ml Output Total 4600 ml 1 ml Balance -4600 ml 120 ml 119 ml Physical Exam General: Alert, Oriented X3, Cooperative, No acute distress Heart: Regular rate (SR/ST with PACs), Normal S1, Normal S2, No murmurs Lungs: Clear Abdomen: Soft, No tenderness, Other (ascites) Extremities: No cyanosis Skin: No breakdown, No significant lesion Labs Labs: Laboratory Tests Test 10/16/21 15:40 10/17/21 07:20 10/17/21 13:10 Urine Collection Type Unknown Urine Color Tete Urine Clarity Hazy Urine pH 6.0 (<5.0-8.0) Urine Specific [place] >=1.030 (1.000-1.030) Urine Protein 30 mg/dL (NEG-TRACE) Urine Glucose (UA) Negative mg/dL (NEG) Urine Ketones (Stick) 40 mg/dL (NEG) Urine Blood Large (NEG) Urine Nitrite Negative (NEG) Urine Bilirubin Moderate (NEG) Urine Urobilinogen Dipstick 1.0 mg/dL (0.2 mg/dL) Urine Leukocyte Esterase Small (NEG) Urine RBC 3-5 /HPF (0-2) Urine WBC 5-10 /HPF (0-4) Urine Squamous Epithelial Cells Mod /LPF Urine Amorphous Sediment Present /HPF Urine Bacteria Many /HPF (0-FEW) Urine Hyaline Casts Many /HPF Urine Granular Casts Few /HPF Urine Mucus Marked /LPF White Blood Count 0.6 x10^3/uL (4.0-11.0) Red Blood Count 3.67 x10^6/uL (3.50-5.40) Hemoglobin 9.5 g/dL (12.0-15.5) 10.3 g/dL (12.0-15.5) Hematocrit 28.7 % (36.0-47.0) 32.3 % (36.0-47.0) Mean Corpuscular Volume 78 fL (79-100) Mean Corpuscular Hemoglobin 26 pg (25-35) Mean Corpuscular Hemoglobin Concent 33 g/dL (31-37) 32 g/dL (31-37) Red Cell Distribution Width 14.2 % (11.5-14.5) Platelet Count 137 x10^3/uL (140-400) Neutrophils (%) (Auto) 20 % (31-73) Lymphocytes (%) (Auto) 65 % (24-48) Monocytes (%) (Auto) 9 % (0-9) Eosinophils (%) (Auto) 5 % (0-3) Basophils (%) (Auto) 1 % (0-3) Neutrophils # (Auto) 0.1 x10^3/uL (1.8-7.7) Lymphocytes # (Auto) 0.4 x10^3/uL (1.0-4.8) Monocytes # (Auto) 0.0 x10^3/uL (0.0-1.1) Eosinophils # (Auto) 0.0 x10^3/uL (0.0-0.7) Basophils # (Auto) 0.0 x10^3/uL (0.0-0.2) Prothrombin Time 14.1 SEC (11.7-14.0) Prothromb Time International Ratio 1.1 (0.8-1.1) Sodium Level 139 mmol/L (136-145) Potassium Level 3.7 mmol/L (3.5-5.1) Chloride Level 106 mmol/L (98-107) Carbon Dioxide Level 24 mmol/L (21-32) Anion Gap 9 (6-14) Blood Urea Nitrogen 15 mg/dL (7-20) Creatinine 0.7 mg/dL (0.6-1.0) Estimated GFR (Cockcroft-Gault) 80.7 Glucose Level 101 mg/dL (70-99) Calcium Level 7.6 mg/dL (8.5-10.1) Magnesium Level 1.8 mg/dL (1.8-2.4) Thyroid Stimulating Hormone (TSH) 1.111 uIU/mL (0.358-3.74) Comment Review of Relevant I have reviewed the following items tejas (where applicable) has been applied. Justifications for Admission Other Justification RAMESH CLARK MD Oct 17, 2021 14:59
[2021-10-17 15:00] VITALS: BP 106/59
[2021-10-17 19:00] VITALS: BP 118/78
[2021-10-17 22:46] VITALS: BP 132/91
[2021-10-18] MEDS: IV NORMAL SALINE 1000ML BAG 1,000 ML IV SCH ×2 (01:13→12:43)
[2021-10-18 03:00] VITALS: BP 114/82
[2021-10-18] MEDS: HEPARIN for SUB-Q USE 5,000 UNIT/ML VIAL. SQ SCH ×3 (03:50→21:07)
[2021-10-18 05:01] LABS: HEMOGLOBIN 9.6 g/dL (12.0-15.5); RED BLOOD COUNT 3.75 x10^6/uL (3.50-5.40); RED CELL DISTRIBUTION WIDTH 14.5 % (11.5-14.5)
[2021-10-18 05:12] LABS: WHITE BLOOD COUNT 0.7 x10^3/uL (4.0-11.0)
[2021-10-18 07:20] VITALS: BP 115/80
[2021-10-18] MEDS: PANTOPRAZOLE IV PUSH 40 MG VIAL. IVP SCH ×2 (07:30→08:09)
[2021-10-18] MEDS: SENNOSIDES/DOCUSATE 8.6/50MG TABLET. PO SCH ×2 (08:10→21:06)
[2021-10-18] MEDS: METOPROLOL SUCC 24HR ER 25 MG TAB.ER.24H. PO SCH (08:10)
[2021-10-18 09:00] LABS: CALCIUM 6.5 mg/dL (8.5-10.1); CREATININE 0.6 mg/dL (0.6-1.0); GFR 96.4; MAGNESIUM 1.7 mg/dL (1.8-2.4); POTASSIUM 3.7 mmol/L (3.5-5.1)
--- NOTE | 2021-10-18 09:12 | PDOC ---
Date of Service: DATE: 10/18/21 TIME: 09:08 Subjective: Subjective: No indicates diarrhea since starting chemo which is ongoing. I asked about recurrent bleeding - "I have no idea." Eating some cereal - wanted a banana but wasn't brought one. Objective: Vital Signs: Vital Signs Date Time Temp Pulse Resp B/P (MAP) Pulse Ox O2 Delivery O2 Flow Rate FiO2 10/18/21 08:10 105 115/80 10/18/21 07:20 98.3 20 96 Room Air 98.3 10/17/21 07:00 95.0 Labs: Laboratory Tests Test 10/17/21 13:10 10/18/21 04:25 10/18/21 08:05 Hemoglobin 10.3 g/dL 9.6 g/dL Hematocrit 32.3 % 30.0 % Mean Corpuscular Hemoglobin Concent 32 g/dL 32 g/dL Prothrombin Time 14.1 SEC Prothromb Time International Ratio 1.1 Sodium Level 139 mmol/L 142 mmol/L Potassium Level 3.7 mmol/L 3.7 mmol/L Chloride Level 106 mmol/L 108 mmol/L Carbon Dioxide Level 24 mmol/L 21 mmol/L Anion Gap 9 13 Blood Urea Nitrogen 15 mg/dL 12 mg/dL Creatinine 0.7 mg/dL 0.6 mg/dL Estimated GFR (Cockcroft-Gault) 80.7 96.4 Glucose Level 101 mg/dL 102 mg/dL Calcium Level 7.6 mg/dL 6.5 mg/dL Magnesium Level 1.8 mg/dL 1.7 mg/dL Thyroid Stimulating Hormone (TSH) 1.111 uIU/mL White Blood Count 0.7 x10^3/uL Red Blood Count 3.75 x10^6/uL Mean Corpuscular Volume 80 fL Mean Corpuscular Hemoglobin 26 pg Red Cell Distribution Width 14.5 % Platelet Count 141 x10^3/uL PE: GEN: NAD - sitting up in bed eating Raisin Bran LUNGS: CTAB HEART: mildly tachycardic ABD: some ascites, soft NEURO/PSYCH: A & O 3, depressed A/P: 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 Can check stool studies for completeness. Paracentesis PRN. DC when ready per primary. Justicifation of Admission Dx: Justifications for Admission: Justification of Admission Dx: Yes JENNIFER REBOLLEDO Oct 18, 2021 09:12
[2021-10-18 11:07] VITALS: BP 115/84
--- NOTE | 2021-10-18 11:45 | PDOC ---
NATALIYA SOLIS LADLE PULLER 10/18/21 1145: CARDIO Progress Notes Date and Time Date of Service 10/18/2021 Time of Evaluation 1120 Subjective Subjective: No Chest Pain, No Palpitations, Other (at times SOA) Vitals Vitals Vital Signs Date Time Temp Pulse Resp B/P (MAP) Pulse Ox O2 Delivery O2 Flow Rate FiO2 10/18/21 11:07 98.1 107 20 115/84 (94) 95 Room Air 98.1 10/17/21 07:00 95.0 Weight Weight [ ] Input and Output Intake and Output Intake and Output 10/18/21 07:00 Intake Total 1400 ml Balance 1400 ml Intake Oral 400 ml IV Total 1000 ml # Voids 4 # Bowel Movements 4 Laboratory Labs Laboratory Tests Test 10/17/21 13:10 10/18/21 04:25 10/18/21 08:05 Hemoglobin 10.3 g/dL (12.0-15.5) 9.6 g/dL (12.0-15.5) Hematocrit 32.3 % (36.0-47.0) 30.0 % (36.0-47.0) Mean Corpuscular Hemoglobin Concent 32 g/dL (31-37) 32 g/dL (31-37) Prothrombin Time 14.1 SEC (11.7-14.0) Prothromb Time International Ratio 1.1 (0.8-1.1) Sodium Level 139 mmol/L (136-145) 142 mmol/L (136-145) Potassium Level 3.7 mmol/L (3.5-5.1) 3.7 mmol/L (3.5-5.1) Chloride Level 106 mmol/L (98-107) 108 mmol/L (98-107) Carbon Dioxide Level 24 mmol/L (21-32) 21 mmol/L (21-32) Anion Gap 9 (6-14) 13 (6-14) Blood Urea Nitrogen 15 mg/dL (7-20) 12 mg/dL (7-20) Creatinine 0.7 mg/dL (0.6-1.0) 0.6 mg/dL (0.6-1.0) Estimated GFR (Cockcroft-Gault) 80.7 96.4 Glucose Level 101 mg/dL (70-99) 102 mg/dL (70-99) Calcium Level 7.6 mg/dL (8.5-10.1) 6.5 mg/dL (8.5-10.1) Magnesium Level 1.8 mg/dL (1.8-2.4) 1.7 mg/dL (1.8-2.4) Thyroid Stimulating Hormone (TSH) 1.111 uIU/mL (0.358-3.74) White Blood Count 0.7 x10^3/uL (4.0-11.0) Red Blood Count 3.75 x10^6/uL (3.50-5.40) Mean Corpuscular Volume 80 fL (79-100) Mean Corpuscular Hemoglobin 26 pg (25-35) Red Cell Distribution Width 14.5 % (11.5-14.5) Platelet Count 141 x10^3/uL (140-400) Microbiology Micro Microbiology 10/16/21 Urine Culture - Preliminary, Resulted Escherichia Coli Physical Exam HEENT: Neck Supple W Full Motion Chest: Symmetric LUNGS: Other (diminished) Heart: RRR (SR with PACs) Abdomen: Other (ascites) Extremities: No Calf Tenderness Neurology: alert, oriented, follow commands Assessment Assessment 1. Malignant ascites: hemoc consulted. S/P paracentesis is on chemotherapy 2. Hx of HTN and HLP 3. Stomatitis r/t chemo 4. Possible cardiomyopathy 5. PSVT: SR/ST with PACs. 6. Pancytopenia 7. Reported syncope: last week Saturday. Seizure? Recommendations 1. replace Mg. Awaiting TTE 2. Start on toprol. 3. PCXR Justicifation of Admission Dx: Justifications for Admission: Justification of Admission Dx: Yes ERVIN GRIER MD 10/18/212158: CARDIO Progress Notes Assessment Assessment Patient seen and examined. Agree with CARROTING MACHINE OFFBEARER's assessment and plan. Tele showed sinus tachy with frequent PAC's Replace Mg Check 2D echo to assess LVF and r/o pericardial effusion Malignant ascites s/p paracentesis, chemo per Onc team NATALIYA SLOIS APRN Oct 18, 2021 11:45 ERVIN GRIER MD Oct 18, 2021 21:59
[2021-10-18] MEDS: fentaNYL PF VIAL 100 MCG/2 ML VIAL IVP PRN (12:41)
[2021-10-18] MEDS: ONDANSETRON PF 4 MG/2 ML VIAL. IVP PRN ×2 (12:44→21:24)
[2021-10-18] MEDS ORDERED: MAGNESIUM SULFATE 2GM 50 ML IV ONE (13:00)
[2021-10-18] MEDS: PROCHLORPERAZINE 10 MG/2 ML VIAL. IVP PRN (13:54)
--- NOTE | 2021-10-18 13:59 | RAD ---
XR CHEST 1V History: Dyspnea Comparison: None. Technique: Portable AP radiograph of the chest. Findings: Right chest Mediport with IJ approach catheter terminating at the right atrium. Small right effusion and mild right lung airspace opacities. The left lung is clear. No pneumothorax. Normal heart size and pulmonary vasculature. Moderate hiatal hernia. Degenerative changes of the rig ht left shoulder with elevation of the humeral head consistent with rotator cuff tear. Degenerative c hanges of the spine. Impression: 1. Right pleural effusion and mild right-sided airspace opacities may represent infection or atelect asis. 2. Moderate sized hiatal hernia. Electronically signed by: Efraín Gannon MD (10/18/2021 1:57 PM) [id number]
[2021-10-18 14:52] VITALS: BP 106/81
--- NOTE | 2021-10-18 14:57 | PDOC ---
[employer] PROGRESS NOTE Date of Service DOS: DATE: 10/18/21 TIME: 14:49 Chief Complaint Chief Complaint Mouth sores decreased p.o. intake likely secondary to side effect of lizeth motherapy, intra-abdominal malignancy, ascites -Present outside emergency room mouth pain decreased intake. Also with ascites transferred here -Labs unremarkable at outside facility; do not see that any imaging was performed. -Given allergies fentanyl for general pain control. Magic mouthwash for mouth pain -Diet as tolerated -DVT prophylaxis -Recommend she resume regular follow-up with oncology doctors at [facility] History of Present Illness History of Present Illness 10/18/2021 No acute events overnight. Patient seen examined bedside. Pending echo. Endorses some shortness of breath. Chest x-ray shows right-sided pleural effusion that is minimal. Pending paracentesis results. Will give 300 mcg Granix today. Patient's chart, labs, images were reviewed and discussed with RN 10/17/21 No acute events overnight. Patient seen examined bedside. Patient clinically feels better. She did have a bloody bowel movement in which it was collected for blood. WBC dropped to 0.6 today. Hematology consulted for possible Granix injection. Patient had a paracentesis yesterday with 4.6 L fluid output. P atient with tachycardia in the 130s. 250 NS bolus given. She did have some PVCs and irregular rhythms. Cardiology is consulted. Patient's chart, labs, images were reviewed and discussed with RN 10/16 Patient evaluated examined at bedside. Resting complaint fair bit of pain in her abdomen. Eager for paracentesis. Continue current treatments. We will follow up with patient after paracentesis. Vitals/I&O Vitals/I&O: Vital Signs Date Time Temp Pulse Resp B/P (MAP) Pulse Ox O2 Delivery O2 Flow Rate FiO2 10/18/21 12:41 19 95 Room Air 10/18/21 11:07 98.1 107 115/84 (94) 98.1 10/17/21 07:00 95.0 I & O 10/17/21 10/17/21 10/18/21 15:00 23:00 07:00 Intake Total 100 ml 1300 ml Balance 100 ml 1300 ml Physical Exam General: Alert, Oriented X3, Cooperative, No acute distress Heart: Regular rate (SR/ST with PACs), Normal S1, Normal S2, No murmurs Lungs: Clear Abdomen: Soft, No tenderness, Other (ascites) Extremities: No cyanosis Skin: No breakdown, No significant lesion Labs Labs: Laboratory Tests Test 10/18/21 04:25 10/18/21 08:05 White Blood Count 0.7 x10^3/uL (4.0-11.0) Red Blood Count 3.75 x10^6/uL (3.50-5.40) Hemoglobin 9.6 g/dL (12.0-15.5) Hematocrit 30.0 % (36.0-47.0) Mean Corpuscular Volume 80 fL (79-100) Mean Corpuscular Hemoglobin 26 pg (25-35) Mean Corpuscular Hemoglobin Concent 32 g/dL (31-37) Red Cell Distribution Width 14.5 % (11.5-14.5) Platelet Count 141 x10^3/uL (140-400) Sodium Level 142 mmol/L (136-145) Potassium Level 3.7 mmol/L (3.5-5.1) Chloride Level 108 mmol/L (98-107) Carbon Dioxide Level 21 mmol/L (21-32) Anion Gap 13 (6-14) Blood Urea Nitrogen 12 mg/dL (7-20) Creatinine 0.6 mg/dL (0.6-1.0) Estimated GFR (Cockcroft-Gault) 96.4 Glucose Level 102 mg/dL (70-99) Calcium Level 6.5 mg/dL (8.5-10.1) Magnesium Level 1.7 mg/dL (1.8-2.4) Comment Review of Relevant I have reviewed the following items tejas (where applicable) has been applied. Medications: Current Medications Medications (Trade) Dose Ordered Sig/Rohit Route PRN Reason Start Time Stop Time Status Last Admin Dose Admin Metoprolol Succinate (Toprol Xl) 12.5 mg DAILY PO 10/18/21 09:00 10/18/21 08:10 Magnesium Sulfate 50 ml @ 25 mls/hr 1X ONCE IV 10/18/21 13:00 10/18/21 14:59 10/18/21 13:42 Justifications for Admission Other Justification RAMESH CLARK MD Oct 18, 2021 14:57
[2021-10-18] MEDS: LIDO:MAALOX:BENADRYL 1:1:1 180 ML BOTTLE. PO PRN (15:07)
[2021-10-18] MEDS: CEFEPIME HCL IV Push 1 GM VIAL. IVP SCH (16:35)
[2021-10-18 19:00] VITALS: BP 98/71
[2021-10-18] MEDS: TBO-FILGRASTIM 300 MCG/0.5 ML SYRINGE. SQ SCH (21:08)
[2021-10-18 23:00] VITALS: BP 99/72
[2021-10-19 03:16] VITALS: BP 91/51
[2021-10-19] MEDS: IV NORMAL SALINE 1000ML BAG 1,000 ML IV SCH ×2 (04:45→16:11)
[2021-10-19] MEDS: HEPARIN for SUB-Q USE 5,000 UNIT/ML VIAL. SQ SCH ×3 (04:46→19:15)
[2021-10-19] MEDS: ONDANSETRON PF 4 MG/2 ML VIAL. IVP PRN ×3 (06:00→19:49)
[2021-10-19 07:00] VITALS: BP 92/57
[2021-10-19] MEDS: PANTOPRAZOLE IV PUSH 40 MG VIAL. IVP SCH (08:30)
[2021-10-19] MEDS: CALCIUM CARBONATE 500 MG TAB.CHEW PO PRN ×2 (08:33→19:51)
[2021-10-19] MEDS: SENNOSIDES/DOCUSATE 8.6/50MG TABLET. PO SCH ×2 (08:36→19:15)
[2021-10-19] MEDS: METOPROLOL SUCC 24HR ER 25 MG TAB.ER.24H. PO SCH ×2 (08:48→12:11)
--- NOTE | 2021-10-19 09:44 | PDOC ---
Date of Service: DATE: 10/19/21 TIME: 09:35 Subjective: Subjective: Diarrhea and nausea this morning, got cleaned up, now breakfast is cold. Asked for brown sugar but was given regular. Abdomen filling up again, not too uncomfortable yet. Says she was supposed to have labs drawn after chemo to check the cancer cells - says no one knows about it here and she wants to know if it's working. Asks about her prognosis, wants detailed information about palliative care so she knows what her options are. Asks where her next chemo will be done. No bleeding. Wants to know why she passed out (prior to admission) for a whole day. Objective: Objective: Stool studies ordered/uncollected. Vital Signs: Vital Signs Date Time Temp Pulse Resp B/P (MAP) Pulse Ox O2 Delivery O2 Flow Rate FiO2 10/19/21 08:48 95 92/57 10/19/21 07:00 97.8 16 93 97.8 10/19/21 03:16 Room Air Labs: CULTURE URINE Final GREATER THAN 100,000 CFU/ML GRAM NEGATIVE RODS on 10/18/21 at 0745. FINAL ID= ESCHERICHIA COLI Imaging: CXR Impression: 1. Right pleural effusion and mild right-sided airspace opacities may represent infection or atelectasis. 2. Moderate sized hiatal hernia. 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 She wants palliative care info - will ask for help from 7th grade social studies teacher. Staff called for brown sugar to be brought from kitchen. Supportive care, GI-meza. Paracentesis PRN. Justicifation of Admission Dx: Justifications for Admission: Justification of Admission Dx: Yes JENNIFER REBOLLEDO Oct 19, 2021 09:44
[2021-10-19 11:00] VITALS: BP 117/78
--- NOTE | 2021-10-19 11:12 | PDOC ---
NATALIYA SOLIS TEMPLATE INSPECTOR 10/19/21 1112: CARDIO Progress Notes Date and Time Date of Service 10/19/2021 Time of Evaluation 1100 Subjective Subjective: No Chest Pain, No shortness of breath, No Palpitations Vitals Vitals Vital Signs Date Time Temp Pulse Resp B/P (MAP) Pulse Ox O2 Delivery O2 Flow Rate FiO2 10/19/21 08:48 95 92/57 10/19/21 08:00 Room Air 10/19/21 07:00 97.8 16 93 97.8 Weight Weight [ ] Input and Output Intake and Output Intake and Output 10/19/21 07:00 Intake Total 1290 ml Balance 1290 ml Intake Oral 290 ml IV Total 1000 ml # Voids 5 # Bowel Movements 2 Microbiology Micro Microbiology 10/16/21 Urine Culture - Final, Complete Escherichia Coli Physical Exam HEENT: Neck Supple W Full Motion Chest: Symmetric LUNGS: Other (diminished) Heart: RRR (SR with PACs) Abdomen: Other (ascites) Extremities: No Calf Tenderness Neurology: alert, oriented, follow commands Assessment Assessment 1. Malignant ascites: hemonc consulted. S/P paracentesis is on chemotherapy 2. Hx of HTN and HLP 3. Stomatitis r/t chemo 4. Possible cardiomyopathy 5. PSVT: SR/ST with PACs. 6. Pancytopenia 7. Reported syncope: last week Saturday, seizure? 8. Suspecting Pneumonia Recommendations 1. BMP and Mg Awaiting TTE 2. Low dose toprol 3. antibiotic per PCP Justicifation of Admission Dx: Justifications for Admission: Justification of Admission Dx: Yes ERVIN GRIER MD 10/19/21 1716: CARDIO Progress Notes Assessment Assessment Patient seen and examined. Agree with MANAGED SECURITY SALES CONSULTANT's assessment and plan. Tele showed sinus tachy with frequent PAC's Continue beta-blockers Malignant ascites s/p paracentesis, chemo per Onc team NATALIYA SOLIS APRN Oct 19, 2021 11:12 ERVIN GRIER MD Oct 19, 2021 17:16
[2021-10-19] MEDS ORDERED: guaiFENesin/CODEINE 100mg/10mg 5 ML LIQUID PO PRN (11:15)
--- NOTE | 2021-10-19 11:21 | PDOC ---
[employer] PROGRESS NOTE Date of Service DOS: DATE: 10/19/21 TIME: 11:16 Chief Complaint Chief Complaint Uterine cancer Probable pneumonia Status post chemotherapy a week ago Mouth sores Leukopenia Ascites Status post paracentesis Hypertension Hyperlipidemia Possible cardiomyopathy PSVT Pancytopenia Recent syncope History of Present Illness History of Present Illness 10/20/2019 Patient seen and examined Discussed with case management Discussed with RN Chart reviewed Discussed with oncologist 10/18/2021 No acute events overnight. Patient seen examined bedside. Pending echo. Endorses some shortness of breath. Chest x-ray shows right-sided pleural effusion that is minimal. Pending paracentesis results. Will give 300 mcg Granix today. Patient's chart, labs, images were reviewed and discussed with RN 10/17/21 No acute events overnight. Patient seen examined bedside. Patient clinically feels better. She did have a bloody bowel movement in which it was collected for blood. WBC dropped to 0.6 today. Hematology consulted for possible Granix injection. Patient had a paracentesis yesterday with 4.6 L fluid output. Patient with tachycardia in the 130s. 250 NS bolus given. She did have some PVCs and irregular rhythms. Cardiology is consulted. Patient's chart, labs, images were reviewed and discussed with RN 10/16 Patient evaluated examined at bedside. Resting complaint fair bit of pain in her abdomen. Eager for paracentesis. Continue current treatments. We will follow up with patient after paracentesis. Vitals/I&O Vitals/I&O: Vital Signs Date Time Temp Pulse Resp B/P (MAP) Pulse Ox O2 Delivery O2 Flow Rate FiO2 10/19/21 08:48 95 92/57 10/19/21 08:00 Room Air 10/19/21 07:00 97.8 16 93 97.8 I & O 10/18/21 10/18/21 10/19/21 15:00 23:00 07:00 Intake Total 290 ml 1000 ml Balance 290 ml 1000 ml Physical Exam General: Alert, Oriented X3, Cooperative, No acute distress Heart: Regular rate (SR/ST with PACs), Normal S1, Normal S2, No murmurs Lungs: Clear Abdomen: Soft, No tenderness, Other (ascites) Extremities: No cyanosis Skin: No breakdown, No significant lesion Assessment and Plan Assessmemt and Plan Uterine cancer Probable pneumonia Status post chemotherapy a week ago Mouth sores Leukopenia Ascites Status post paracentesis Hypertension Hyperlipidemia Possible cardiomyopathy PSVT Pancytopenia Recent syncope Plan IV antibiotics Granix Oral care Trend her labs As needed O2 Beta agonist Home meds DVT prophylaxis Full code I spoke with onncology: the plan is to give her a couple more rounds of chemot herapy and then they will eventually do debulking surgery at [facility] Per cardiology recommendations please see the following we certainly agree and appreciate their input; Assessment 1. Malignant ascites: hemonc consulted. S/P paracentesis is on chemotherapy 2. Hx of HTN and HLP 3. Stomatitis r/t chemo 4. Possible cardiomyopathy 5. PSVT: SR/ST with PACs. 6. Pancytopenia 7. Reported syncope: last week Saturday, seizure? 8. Suspecting Pneumonia Recommendations 1. BMP and Mg Awaiting TTE 2. Low dose toprol 3. antibiotic per PCP Comment Review of Relevant I have reviewed the following items tejas (where applicable) has been applied. Medications: Current Medications Medications (Trade) Dose Ordered Sig/Rohit Route PRN Reason Start Time Stop Time Status Last Admin Dose Admin Magnesium Sulfate 50 ml @ 25 mls/hr 1X ONCE IV 10/18/21 13:00 10/18/21 14:59 DC 10/18/21 13:42 Tbo-Filgrastim (Granix) 300 mcg QHS SQ 10/18/21 21:00 10/18/21 21:08 Cefepime HCl (Maxipime) 1 gm Q24H IVP 10/18/21 16:00 10/25/21 15:59 10/18/21 16:35 Justifications for Admission Other Justification DALE TIPTON III DO Oct 19, 2021 11:21
[2021-10-19 12:10] LABS: HEMATOCRIT 30.6 % (36.0-47.0); HEMOGLOBIN 9.6 g/dL (12.0-15.5); RED BLOOD COUNT 3.71 x10^6/uL (3.50-5.40); RED CELL DISTRIBUTION WIDTH 14.8 % (11.5-14.5)
[2021-10-19 12:14] LABS: CREATININE 0.8 mg/dL (0.6-1.0); GFR 69.2; MAGNESIUM 2.1 mg/dL (1.8-2.4); POTASSIUM 3.5 mmol/L (3.5-5.1)
[2021-10-19] MEDS: PROCHLORPERAZINE 10 MG/2 ML VIAL. IVP PRN (13:57)
[2021-10-19 15:00] VITALS: BP 100/66
[2021-10-19] MEDS: CEFEPIME HCL IV Push 1 GM VIAL. IVP SCH (16:08)
--- NOTE | 2021-10-19 16:52 | NUR ---
Nurse's note: Family members came to visit. The patient's son is concerned that the patient's needs are not being attended promptly. This nurse reassured them that we make our hourly rounds and assess patients making sure that they are comfortable. Also discussed the importance of GCSF for neutropenia. The patient refused the dose last night. Now, the patient is agreeable after discussing the indication, administration, and monitoring.
[2021-10-19 19:00] VITALS: BP 156/81
[2021-10-19] MEDS: TBO-FILGRASTIM 300 MCG/0.5 ML SYRINGE. SQ SCH (19:51)
[2021-10-19] MEDS: ZOLPIDEM 5 MG TABLET. PO PRN (21:23)
[2021-10-19] MEDS: ALBUTEROL SULFATE 2.5 MG/3 ML NEBU. NEB PRN (21:48)
[2021-10-19 23:54] VITALS: BP 94/56
[2021-10-20 03:57] VITALS: BP 91/54
[2021-10-20] MEDS: IV NORMAL SALINE 1000ML BAG 1,000 ML IV SCH ×2 (04:52→16:20)
[2021-10-20] MEDS: HEPARIN for SUB-Q USE 5,000 UNIT/ML VIAL. SQ SCH ×4 (05:44→20:28)
[2021-10-20 07:00] VITALS: BP 126/73
[2021-10-20] MEDS: PANTOPRAZOLE IV PUSH 40 MG VIAL. IVP SCH (07:49)
[2021-10-20] MEDS: SENNOSIDES/DOCUSATE 8.6/50MG TABLET. PO SCH ×2 (08:49→20:27)
--- NOTE | 2021-10-20 10:40 | NUR ---
AMBAR following. Discussed with RN, pt wanting to go to [facility]. Encouraged pt to work with therapy so referral can be sent. Awaiting therapy notes. AMBAR will continue to follow. Addendum: 10/20/21 at 1528 by DEISY VILLALTA AMBRA met with pt, pt wanting to see Dr. Gao. AMBAR advised pt needs to work with therapy in order for referral to be sent to [facility]. Pt verbalized understanding.
[2021-10-20 11:00] VITALS: BP 111/69
[2021-10-20] MEDS: CALCIUM CARBONATE 500 MG TAB.CHEW PO PRN (11:05)
--- NOTE | 2021-10-20 11:08 | PDOC ---
NATALIYA SOLIS [employer] OFFICER 10/20/21 1108: CARDIO Progress Notes Date and Time Date of Service 10/20/2021 Time of Evaluation 1105 Subjective Subjective: No Chest Pain, No shortness of breath, No Palpitations, Other (nauseated) Vitals Vitals Vital Signs Date Time Temp Pulse Resp B/P (MAP) Pulse Ox O2 Delivery O2 Flow Rate FiO2 10/20/21 07:57 Room Air 10/20/21 07:00 98.0 107 18 126/73 (90) 90 98.0 10/19/21 21:56 3.0 Weight Weight [ ] Input and Output Intake and Output Intake and Output 10/20/21 06:59 Intake Total 560 ml Balance 560 ml Intake Oral 560 ml # Voids 3 # Bowel Movements 1 Laboratory Labs Laboratory Tests Test 10/19/21 11:47 White Blood Count 2.0 x10^3/uL (4.0-11.0) Red Blood Count 3.71 x10^6/uL (3.50-5.40) Hemoglobin 9.6 g/dL (12.0-15.5) Hematocrit 30.6 % (36.0-47.0) Mean Corpuscular Volume 83 fL (79-100) Mean Corpuscular Hemoglobin 26 pg (25-35) Mean Corpuscular Hemoglobin Concent 31 g/dL (31-37) Red Cell Distribution Width 14.8 % (11.5-14.5) Platelet Count 220 x10^3/uL (140-400) Sodium Level 142 mmol/L (136-145) Potassium Level 3.5 mmol/L (3.5-5.1) Chloride Level 109 mmol/L (98-107) Carbon Dioxide Level 19 mmol/L (21-32) Anion Gap 14 (6-14) Blood Urea Nitrogen 16 mg/dL (7-20) Creatinine 0.8 mg/dL (0.6-1.0) Estimated GFR (Cockcroft-Gault) 69.2 Glucose Level 85 mg/dL (70-99) Calcium Level 8.0 mg/dL (8.5-10.1) Magnesium Level 2.1 mg/dL (1.8-2.4) Microbiology Micro Microbiology 10/16/21 Urine Culture - Final, Complete Escherichia Coli Physical Exam HEENT: Neck Supple W Full Motion Chest: Symmetric LUNGS: Other (diminished) Heart: RRR (SR/ST with PACs) Abdomen: Other (ascites) Extremities: No Calf Tenderness Neurology: alert, oriented, follow commands Assessment Assessment 1. Malignant ascites: hemonc consulted. S/P paracentesis is on chemotherapy 2. Hx of HTN and HLP 3. Stomatitis r/t chemo 4. Possible cardiomyopathy 5. PSVT: SR/ST with PACs. 6. Pancytopenia 7. Reported syncope: last week Saturday, seizure? 8. Suspecting Pneumonia Recommendations 1. Awaiting TTE 2. Low dose toprol 3. antibiotic per PCP 4. Supportive care Justicifation of Admission Dx: Justifications for Admission: Justification of Admission Dx: Yes ERVIN GRIER MD 10/20/21 1337: CARDIO Progress Notes Assessment Assessment Patient seen and examined. Agree with FIBERGLASS ROVING WINDER's assessment and plan. Tele showed sinus tachy with frequent PAC's Continue beta-blockers Malignant ascites s/p paracentesis, chemo per Onc team NATALIYA SOLIS APRN Oct 20, 2021 11:08 ERVIN GRIER MD Oct 20, 2021 13:37
--- NOTE | 2021-10-20 11:41 | PDOC ---
[employer] PROGRESS NOTE Date of Service DOS: DATE: 10/20/21 TIME: 11:40 Chief Complaint Chief Complaint Uterine cancer Probable pneumonia Status post chemotherapy a week ago Mouth sores Leukopenia Ascites Status post paracentesis Hypertension Hyperlipidemia Possible cardiomyopathy PSVT Pancytopenia Recent syncope History of Present Illness History of Present Illness 10/20/2021 Patient seen and examined She states her life "sucks" Discussed with RN Patient has been difficult Discussed with case management Chart reviewed 10/20/2019 Patient seen and examined Discussed with case management Discussed with RN Chart reviewed Discussed with oncologist 10/18/2021 No acute events overnight. Patient seen examined bedside. Pending echo. Endorses some shortness of breath. Chest x-ray shows right-sided pleural effusion that is minimal. Pending paracentesis results. Will give 300 mcg Granix today. Patient's chart, labs, images were reviewed and discussed with RN 10/17/21 No acute events overnight. Patient seen examined bedside. Patient clinically feels better. She did have a bloody bowel movement in which it was collected for blood. WBC dropped to 0.6 today. Hematology consulted for possible Granix injection. Patient had a paracentesis yesterday with 4.6 L fluid output. Patient with tachycardia in the 130s. 250 NS bolus given. She did have some PVCs and irregular rhythms. Cardiology is consulted. Patient's chart, labs, images were reviewed and discussed with RN 10/16 Patient evaluated examined at bedside. Resting complaint fair bit of pain in her abdomen. Eager for paracentesis. Continue current treatments. We will follow up with patient after paracentesis. Vitals/I&O Vitals/I&O: Vital Signs Date Time Temp Pulse Resp B/P (MAP) Pulse Ox O2 Delivery O2 Flow Rate FiO2 10/20/21 07:57 Room Air 10/20/21 07:00 98.0 107 18 126/73 (90) 90 98.0 10/19/21 21:56 3.0 I & O 10/19/21 10/19/21 10/20/21 15:00 23:00 07:00 Intake Total 360 ml 200 ml 0 ml Balance 360 ml 200 ml 0 ml Physical Exam General: Alert, Oriented X3, mild distress Heart: Regular rate (SR/ST with PACs), Normal S1, Normal S2, No murmurs Lungs: Clear Abdomen: Soft, No tenderness, Other (ascites) Extremities: No cyanosis Skin: No breakdown, No significant lesion Labs Labs: Laboratory Tests Test 10/19/21 11:47 White Blood Count 2.0 x10^3/uL (4.0-11.0) Red Blood Count 3.71 x10^6/uL (3.50-5.40) Hemoglobin 9.6 g/dL (12.0-15.5) Hematocrit 30.6 % (36.0-47.0) Mean Corpuscular Volume 83 fL (79-100) Mean Corpuscular Hemoglobin 26 pg (25-35) Mean Corpuscular Hemoglobin Concent 31 g/dL (31-37) Red Cell Distribution Width 14.8 % (11.5-14.5) Platelet Count 220 x10^3/uL (140-400) Sodium Level 142 mmol/L (136-145) Potassium Level 3.5 mmol/L (3.5-5.1) Chloride Level 109 mmol/L (98-107) Carbon Dioxide Level 19 mmol/L (21-32) Anion Gap 14 (6-14) Blood Urea Nitrogen 16 mg/dL (7-20) Creatinine 0.8 mg/dL (0.6-1.0) Estimated GFR (Cockcroft-Gault) 69.2 Glucose Level 85 mg/dL (70-99) Calcium Level 8.0 mg/dL (8.5-10.1) Magnesium Level 2.1 mg/dL (1.8-2.4) Assessment and Plan Assessmemt and Plan Uterine cancer Probable pneumonia Status post chemotherapy a week ago Mouth sores Leukopenia Ascites Status post paracentesis Hypertension Hyperlipidemia Possible cardiomyopathy PSVT Pancytopenia Recent syncope Plan IV antibiotics Granix Oral care Trend her labs As needed O2 Beta agonist Home meds DVT prophylaxis Full code Per oncology: the plan is to give her a couple more rounds of chemotherapy and then they will eventually do debulking surgery at [facility] Long-term prognosis guarded Per cardiology recommendations today please see the following and we certainly agree and appreciate their input; Assessment 1. Malignant ascites: hemonc consulted. S/P paracentesis is on chemotherapy 2. Hx of HTN and HLP 3. Stomatitis r/t chemo 4. Possible cardiomyopathy 5. PSVT: SR/ST with PACs. 6. Pancytopenia 7. Reported syncope: last week Saturday, seizure? 8. Suspecting Pneumonia Recommendations 1. Awaiting TTE 2. Low dose toprol 3. antibiotic per PCP 4. Supportive care Comment Review of Relevant I have reviewed the following items tejas (where applicable) has been applied. Justifications for Admission Other Justification DALE TIPTON III DO Oct 20, 2021 11:41
--- NOTE | 2021-10-20 11:56 | PDOC ---
Date of Service: DATE: 10/20/21 TIME: 11:52 Subjective: Subjective: Heartburn, n/v. Abd filling up - thinks might need paracentesis Saturday. Hasn't talked to SW. Omperazole PRN at home works best for heartburn - thinks she'd like to try pantoprazole PO instead of IV. Objective: Objective: D/w nurse - c/o heartburn. Vital Signs: Vital Signs Date Time Temp Pulse Resp B/P (MAP) Pulse Ox O2 Delivery O2 Flow Rate FiO2 10/20/21 07:57 Room Air 10/20/21 07:00 98.0 107 18 126/73 (90) 90 98.0 10/19/21 21:56 3.0 PE: GEN: chronically ill, friend present LUNGS: CTAB HEART: mildly tachycardic ABD: distended NEURO/PSYCH: A & O 3 A/P: [employer] cancer, malignant ascites - on chemo @ [facility] N/v, hiatal hernia, heartburn H/o syncope/?seizure -- Try PO PPI, GI cocktail. Paracentesis PRN. Justicifation of Admission Dx: Justifications for Admission: Justification of Admission Dx: Yes JENNIFER REBOLLEDO Oct 20, 2021 11:55
[2021-10-20] MEDS ORDERED: LIDO:MAALOX 1:1 20 ML SINGLE DOSE. PO PRN (12:00)
[2021-10-20 15:00] VITALS: BP 130/76
--- NOTE | 2021-10-20 15:23 | CARD ---
MR#: [id number] Date of Study: 10/20/2021 Ordering Physician: NATALIYA SOLIS, Referring Physician: NATALIYA SOLIS Tech: No Kingsley SUJEY APPROVED REPORT EXAM: Two-dimensional and M-mode echocardiogram with Doppler and color Doppler. Other Information Quality : Technically LimitedHR: 104bpm Rhythm : Tachycardia INDICATION Dyspnea 2D DIMENSIONS IVSd1.5 (0.7-1.1cm)Aortic Root(2D)3.4 (2.0-3.7cm) LVDd2.9 (3.9-5.9cm)PWd1.6 (0.7-1.1cm) LVDs1.4 (2.5-4.0cm)FS (%) 50.4 % SV27.1 ml LEFT VENTRICLE Limited study. The left ventricle is normal size. There is mild concentric left ventricular hypertro phy. The left ventricular systolic function is normal and the ejection fraction is within normal rang e. LV ejection fraction of 55 to 60%. There is normal LV segmental wall motion. RIGHT VENTRICLE The right ventricle is normal size. There is normal right ventricular wall thickness. The right ventr icular systolic function is normal. AORTIC VALVE The aortic valve is normal in structure and function. There is no significant aortic valvular stenosi s. MITRAL VALVE The mitral valve is normal in structure and function. There is no evidence of mitral valve prolapse. There is no mitral valve stenosis. TRICUSPID VALVE The tricuspid valve is normal in structure and function. GREAT VESSELS The aortic root is normal in size. The ascending aorta is normal in size. PERICARDIAL EFFUSION There is no evidence of significant pericardial effusion. <Conclusion> Limited study. The left ventricle is normal size. The left ventricular systolic function is normal and the ejection fraction is within normal range. LV ejection fraction of 55 to 60%. There is mild concentric left ventricular hypertrophy. There is no significant aortic valvular stenosis. There is no mitral valve stenosis. Signed by : Eulogio Noel MD Electronically Approved : 10/20/2021 15:22:35
[2021-10-20] MEDS: PANTOPRAZOLE 40 MG TABLET.DR. PO SCH (16:17)
[2021-10-20] MEDS: CEFEPIME HCL IV Push 1 GM VIAL. IVP SCH (16:17)
[2021-10-20] MEDS: ALBUTEROL SULFATE 2.5 MG/3 ML NEBU. NEB PRN (16:33)
[2021-10-20 19:00] VITALS: BP 94/56
[2021-10-20] MEDS: TBO-FILGRASTIM 300 MCG/0.5 ML SYRINGE. SQ SCH (20:29)
[2021-10-20] MEDS: ZOLPIDEM 5 MG TABLET. PO PRN (22:46)
[2021-10-20] MEDS: ONDANSETRON PF 4 MG/2 ML VIAL. IVP PRN (22:47)
[2021-10-20 23:00] VITALS: BP 102/74
[2021-10-21] MEDS: PROCHLORPERAZINE 10 MG/2 ML VIAL. IVP PRN ×4 (00:11→22:26)
[2021-10-21] MEDS: fentaNYL PF VIAL 100 MCG/2 ML VIAL IVP PRN ×2 (02:45→22:26)
[2021-10-21 03:00] VITALS: BP 105/66
[2021-10-21] MEDS: ONDANSETRON PF 4 MG/2 ML VIAL. IVP PRN ×3 (04:49→19:14)
[2021-10-21] MEDS: IV NORMAL SALINE 1000ML BAG 1,000 ML IV SCH ×2 (05:55→20:51)
[2021-10-21 07:00] VITALS: BP 95/58
[2021-10-21] MEDS: PANTOPRAZOLE 40 MG TABLET.DR. PO SCH ×2 (07:30→16:05)
[2021-10-21] MEDS: SENNOSIDES/DOCUSATE 8.6/50MG TABLET. PO SCH ×2 (09:00→19:56)
[2021-10-21] MEDS: METOPROLOL SUCC 24HR ER 25 MG TAB.ER.24H. PO SCH (09:00)
[2021-10-21] MEDS: ALBUTEROL SULFATE 2.5 MG/3 ML NEBU. NEB PRN (09:42)
--- NOTE | 2021-10-21 09:42 | PDOC ---
PROGRESS NOTES Date of Service: DATE: 10/21/21 TIME: 09:42 Subjective Subjective c/o nausea Objective Objective Vital Signs Date Time Temp Pulse Resp B/P (MAP) Pulse Ox O2 Delivery O2 Flow Rate FiO2 10/21/21 03:52 92 Room Air 2.0 10/21/21 03:00 97.8 84 22 105/66 (79) 97.8 Intake and Output 10/21/21 07:00 Intake Total 1460 ml Balance 1460 ml Intake Oral 460 ml IV Total 1000 ml # Voids 2 Physical Exam Abdomen: Soft, No tenderness, Other (ascites) Heart: Regular rate (SR/ST with PACs), Normal S1, Normal S2, No murmurs Extremities: No cyanosis General: Alert, Oriented X3, mild distress HEENT: Atraumatic, Other ([place]) Lungs: Other (diminished) MUSCULOSKELETAL: Osteoarthritic changes both hands Neuro: Normal speech, Sensation intact Psych/Mental Status: Mental status NL, Mood NL Skin: No breakdown, No significant lesion Assessment Assessment 1. Malignant ascites: hemonc following. S/P paracentesis is on chemotherapy 2. Hx of HTN and HLP 3. Stomatitis r/t chemo 4. Possible cardiomyopathy 5. PSVT: SR/ST with PACs. 6. Pancytopenia 7. Reported syncope: last week Saturday, seizure? 8. Suspecting Pneumonia Recommendations 1. 2D echo showed normal LV systolic function 2. Low dose toprol 3. antibiotic per PCP 4. Supportive care Comment Review of Relevant I have reviewed the following items tejas (where applicable) has been applied. Labs Microbiology 10/16/21 Urine Culture - Final, Complete Escherichia Coli Medications Current Medications Multi-Ingredient Mouthwash/Gargle (Gi Cocktail) 20 ml PRN QID PRN PO abd pain, heartburn, n/v; Start 10/20/21 at 12:00 Pantoprazole Sodium (Protonix) 40 mg BIDAC PO Last administered on 10/20/21at 16:17; Start 10/20/21 at 16:30 Vitals/I & O Vital Sign - Last 24 Hours 10/20/21 10/20/21 10/20/21 10/20/21 11:00 15:00 16:34 19:00 Temp 98.2 97.5 98.0 98.2 97.5 98.0 Pulse 100 92 85 Resp 18 18 19 B/P (MAP) 111/69 (83) 130/76 (94) 94/56 (69) Pulse Ox 93 91 98 91 O2 Delivery Nasal Cannula Room Air O2 Flow Rate 3.0 10/20/21 10/20/21 10/21/21 10/21/21 20:25 23:00 02:45 03:00 Temp 97.6 97.8 97.6 97.8 Pulse 113 84 Resp 22 B/P (MAP) 102/74 (83) 105/66 (79) Pulse Ox 92 92 92 O2 Delivery Room Air Nasal Cannula Room Air Nasal Cannula O2 Flow Rate 2.0 2.0 2.0 10/21/21 03:52 Pulse Ox 92 O2 Delivery Room Air O2 Flow Rate 2.0 Intake and Output 10/20/21 10/20/21 10/21/21 15:00 23:00 07:00 Intake Total 360 ml 1050 ml 50 ml Balance 360 ml 1050 ml 50 ml ERVIN GRIER MD Oct 21, 2021 09:42
[2021-10-21 11:00] VITALS: BP 103/57
--- NOTE | 2021-10-21 12:55 | PDOC ---
[employer] PROGRESS NOTE Date of Service DOS: DATE: 10/21/21 TIME: 12:54 Chief Complaint Chief Complaint Uterine cancer Probable pneumonia Status post chemotherapy a week ago Mouth sores Leukopenia Ascites Status post paracentesis Hypertension Hyperlipidemia Possible cardiomyopathy PSVT Pancytopenia Recent syncope History of Present Illness History of Present Illness 10/21/2021 Patient seen and examined Archbald she is resting with no apparent distress Discussed with RN Patient apparently is still having nausea and some anxiety per her RN Chart reviewed 10/20/2021 Patient seen and examined She states her life "sucks" Discussed with RN Patient has been difficult Discussed with case management Chart reviewed 10/20/2019 Patient seen and examined Discussed with case management Discussed with RN Chart reviewed Discussed with oncologist 10/18/2021 No acute events overnight. Patient seen examined bedside. Pending echo. Endorses some shortness of breath. Chest x-ray shows right-sided pleural effusion that is minimal. Pending paracentesis results. Will give 300 mcg Granix today. Patient's chart, labs, images were reviewed and discussed with RN 10/17/21 No acute events overnight. Patient seen examined bedside. Patient clinically feels better. She did have a bloody bowel movement in which it was collected for blood. WBC dropped to 0.6 today. Hematology consulted for possible Granix injection. Patient had a paracentesis yesterday with 4.6 L fluid output. Patient with tachycardia in the 130s. 250 NS bolus given. She did have some PVCs and irregular rhythms. Cardiology is consulted. Patient's chart, labs, images were reviewed and discussed with RN 10/16 Patient evaluated examined at bedside. Resting complaint fair bit of pain in her abdomen. Eager for paracentesis. Continue current treatments. We will follow up with patient after paracentesis. Vitals/I&O Vitals/I&O: Vital Signs Date Time Temp Pulse Resp B/P (MAP) Pulse Ox O2 Delivery O2 Flow Rate FiO2 10/21/21 11:00 97.4 114 20 103/57 (72) 96 Nasal Cannula 2.0 97.4 I & O 10/20/21 10/20/21 10/21/21 15:00 23:00 07:00 Intake Total 360 ml 1050 ml 50 ml Balance 360 ml 1050 ml 50 ml Physical Exam General: Alert, Oriented X3, mild distress Heart: Regular rate (SR/ST with PACs), Normal S1, Normal S2, No murmurs Lungs: Clear Abdomen: Soft, No tenderness, Other (ascites) Extremities: No cyanosis Skin: No breakdown, No significant lesion Assessment and Plan Assessmemt and Plan Uterine cancer Probable pneumonia Status post chemotherapy a week ago Mouth sores Leukopenia Ascites Status post paracentesis Hypertension Hyperlipidemia Possible cardiomyopathy PSVT Pancytopenia Recent syncope Plan IV antibiotics Granix Added as needed Ativan Oral care Trend her labs As needed O2 Beta agonist Home meds DVT prophylaxis Full code Per oncology: the plan is to give her a couple more rounds of chemotherapy and then they will eventually do debulking surgery at [facility] Long-term prognosis guarded Comment Review of Relevant I have reviewed the following items tejas (where applicable) has been applied. Medications: Current Medications Medications (Trade) Dose Ordered Sig/Rohit Route PRN Reason Start Time Stop Time Status Last Admin Dose Admin Pantoprazole Sodium (Protonix) 40 mg BIDAC PO 10/20/21 16:30 10/20/21 16:17 Justifications for Admission Other Justification DALE TIPTON III DO Oct 21, 2021 12:55
[2021-10-21] MEDS: HEPARIN for SUB-Q USE 5,000 UNIT/ML VIAL. SQ SCH ×4 (14:00→19:57)
[2021-10-21 15:00] VITALS: BP 113/76
[2021-10-21] MEDS: CEFEPIME HCL IV Push 1 GM VIAL. IVP SCH (16:10)
[2021-10-21 19:45] VITALS: BP 96/54
[2021-10-21] MEDS: TBO-FILGRASTIM 300 MCG/0.5 ML SYRINGE. SQ SCH (20:51)
[2021-10-21 23:30] VITALS: BP 103/56
[2021-10-22] VITALS (24 sets, daily range): BP systolic 67–147; BP diastolic 47–93
--- NOTE | 2021-10-22 00:01 | NUR ---
Pt.has been restless,agitated with elevated HR for the past hour in the 130's to 170's. She keeps taking her heart monitor, gown and blanket off and keeps trying to get OOB alone. Ativan given around 2100 and Fentanyl around [address] Ocampo notified and he ordered Geodon and Metoprolol to try. Wants to give Geodon first before giving Metoprolol. Will continue to monitor.
[2021-10-22] MEDS: ZIPRASIDONE IM 20 MG VIAL. IM PRN ×2 (00:46→05:04)
[2021-10-22 02:46] LABS: CALCIUM 9.6 mg/dL (8.5-10.1); CREATININE 1.1 mg/dL (0.6-1.0); GFR 47.9; POTASSIUM 3.6 mmol/L (3.5-5.1)
[2021-10-22 02:50] LABS: BASO # 0.3 x10^3/uL (0.0-0.2); BASO % 0 % (0-3); EOS % 0 % (0-3); HEMATOCRIT 33.7 % (36.0-47.0); HEMOGLOBIN 10.3 g/dL (12.0-15.5); LYMPH # 2.1 x10^3/uL (1.0-4.8); LYMPH % 3 % (24-48); MEAN CORPUSCULAR HEMOGLOBIN 25 pg (25-35); MEAN CORPUSCULAR HGB CONC 31 g/dL (31-37); MEAN CORPUSCULAR VOLUME 82 fL (79-100); MONO # 2.8 x10^3/uL (0.0-1.1); MONO % 4 % (0-9); NEUT # 58.4 x10^3/uL (1.8-7.7); NEUT % 92 % (31-73); PLATELET COUNT 342 x10^3/uL (140-400); RED BLOOD COUNT 4.14 x10^6/uL (3.50-5.40); RED CELL DISTRIBUTION WIDTH 15.1 % (11.5-14.5)
--- NOTE | 2021-10-22 02:50 | RAD ---
EXAMINATION: Abdominal radiograph. VIEWS: 1 COMPARISON: None INDICATION: 80 years, Female, vomiting. FINDINGS: Gas-filled mildly dilated loops of small bowel in the central abdomen measuring up to 3.2 cm. No jacquelin s pneumoperitoneum.No abnormal intra-abdominal calcifications. Lung bases are unremarkable.No acute o sseous process. IMPRESSION: Gas-filled mildly dilated loops of small bowel in the central abdomen, could represent ileus or obstr uction. Electronically signed by: Josefina Cottrell MD (10/22/2021 2:48 AM) [facility]
--- NOTE | 2021-10-22 02:52 | NUR ---
Pt. just transfered to room 103 in ICU. Rapid Response called b/c pt. kept vomiting dark brown bloody emesis and O2 stats in the 80's. Geodon given earlier and pt. still tachy. Change in condition noted. Dr. Ocampo notified and gave order for EKG, NG tube, Troponin and KUB. NG tube placed and suctioned out. 300 cc of emesis.
[2021-10-22 02:59] LABS: WHITE BLOOD COUNT 63.6 x10^3/uL (4.0-11.0)
[2021-10-22 03:40] LABS: % LYMPHS 4 % (24-48); % METAS 1 % (0-0); % MONOS 4 % (0-10); % MYELOS 1 % (0-0); % SEGS 76 % (35-66); PLT ESTIMATE ADEQUATE (ADEQUATE); POLYCHROMASIA SLIGHT
[2021-10-22 03:41] LABS: ANISOCYTOSIS SLIGHT; OVALOCYTES FEW; TOXIC GRANULATION MOD
[2021-10-22 03:42] LABS: % BANDS 13 % (0-9); % PROS 1 % (0-0)
[2021-10-22] MEDS ORDERED: NOREPINEPHRINE VIAL 8 MG in IV DEXTROSE 5% 250 ML IV PRN (05:45)
--- NOTE | 2021-10-22 06:44 | RAD ---
EXAMINATION: Chest radiograph. VIEWS: 1 COMPARISON: 10/18/2021 INDICATION:80 years, Female, aspiration. FINDINGS: Stable cardiomediastinal silhouette. Similar moderate size hiatal hernia. Enteric tube tip and sideho le terminates within the herniated stomach. Bilateral perihilar and basilar patchy airspace opacities , unchanged since prior exam. Possible trace left pleural effusion. No pneumothorax. No acute osseous process. Right Mediport catheter terminates in the right atrium. IMPRESSION: Bilateral perihilar and basilar patchy airspace opacities, unchanged since prior exam. Electronically signed by: Josefina Cottrell MD (10/22/2021 6:42 AM) [facility]
[2021-10-22] MEDS: PANTOPRAZOLE IV PUSH 40 MG VIAL. IVP SCH (07:21)
--- NOTE | 2021-10-22 08:21 | PDOC ---
PROGRESS NOTES Date of Service: DATE: 10/22/21 TIME: 08:21 Subjective Subjective Patient had rapid response last night for acute respiratory failure possibly from aspiration pneumonia and was transferred to ICU. Patient currently somnolent on nonrebreather Objective Objective Vital Signs Date Time Temp Pulse Resp B/P (MAP) Pulse Ox O2 Delivery O2 Flow Rate FiO2 10/21/21 23:30 97.9 156 21 103/56 (72) 92 Nasal Cannula 3.0 97.9 Intake and Output 10/22/21 07:00 Intake Total 1600 ml Balance 1600 ml Intake Oral 0 ml IV Total 1600 ml # Voids 2 Physical Exam Abdomen: Soft, No tenderness, Other (ascites) Heart: Regular rate (SR/ST with PACs), Normal S1, Normal S2, No murmurs Extremities: No cyanosis General: Alert, Oriented X3, mild distress HEENT: Atraumatic, Other ([place]) Lungs: Other (diminished) MUSCULOSKELETAL: Osteoarthritic changes both hands Neuro: Normal speech, Sensation intact Psych/Mental Status: Mental status NL, Mood NL Skin: No breakdown, No significant lesion Assessment Assessment 1. Malignant ascites: hemonc following. S/P paracentesis is on chemotherapy 2. Hx of HTN and HLP 3. Stomatitis r/t chemo 4. Uterine adenocarcinoma 5. PSVT: SR/ST with PACs. 6. Pancytopenia 7. Reported syncope: last week Saturday, seizure? 8. Possible aspiration pneumonia Recommendations 1. 2D echo showed normal LV systolic function 2. Low dose toprol 3. antibiotic per IM 4. Pulmonary following 5. Patient is DNR Comment Review of Relevant I have reviewed the following items tejas (where applicable) has been applied. Labs Laboratory Tests Test 10/22/21 02:00 White Blood Count 63.6 x10^3/uL (4.0-11.0) Red Blood Count 4.14 x10^6/uL (3.50-5.40) Hemoglobin 10.3 g/dL (12.0-15.5) Hematocrit 33.7 % (36.0-47.0) Mean Corpuscular Volume 82 fL (79-100) Mean Corpuscular Hemoglobin 25 pg (25-35) Mean Corpuscular Hemoglobin Concent 31 g/dL (31-37) Red Cell Distribution Width 15.1 % (11.5-14.5) Platelet Count 342 x10^3/uL (140-400) Neutrophils (%) (Auto) 92 % (31-73) Lymphocytes (%) (Auto) 3 % (24-48) Monocytes (%) (Auto) 4 % (0-9) Eosinophils (%) (Auto) 0 % (0-3) Basophils (%) (Auto) 0 % (0-3) Neutrophils # (Auto) 58.4 x10^3/uL (1.8-7.7) Lymphocytes # (Auto) 2.1 x10^3/uL (1.0-4.8) Monocytes # (Auto) 2.8 x10^3/uL (0.0-1.1) Eosinophils # (Auto) 0.0 x10^3/uL (0.0-0.7) Basophils # (Auto) 0.3 x10^3/uL (0.0-0.2) Segmented Neutrophils % 76 % (35-66) Band Neutrophils % 13 % (0-9) Lymphocytes % 4 % (24-48) Monocytes % 4 % (0-10) Metamyelocytes % 1 % (0-0) Myelocytes % 1 % (0-0) Promyelocytes % 1 % (0-0) Toxic Granulation Mod Dohle Bodies Few Platelet Estimate Adequate (ADEQUATE) Polychromasia Slight Anisocytosis Slight Ovalocytes Few Sodium Level 144 mmol/L (136-145) Potassium Level 3.6 mmol/L (3.5-5.1) Chloride Level 108 mmol/L (98-107) Carbon Dioxide Level 20 mmol/L (21-32) Anion Gap 16 (6-14) Blood Urea Nitrogen 27 mg/dL (7-20) Creatinine 1.1 mg/dL (0.6-1.0) Estimated GFR (Cockcroft-Gault) 47.9 Glucose Level 177 mg/dL (70-99) Calcium Level 9.6 mg/dL (8.5-10.1) Troponin I High Sensitivity 20 ng/L (4-50) Microbiology 10/16/21 Urine Culture - Final, Complete Escherichia Coli Medications Current Medications Lorazepam (Ativan Inj) 0.25 mg PRN Q4HRS PRN IVP ANXIETY / AGITATION; Start 10/22/21 at 00:00 Lorazepam (Ativan Inj) 1 mg PRN Q4HRS PRN IVP ANXIETY / AGITATION Last adminis tered on 10/21/21at 20:52; Start 10/21/21 at 13:00; Stop 10/21/21 at 23:58; Status DC Metoprolol Tartrate (Lopressor Vial) 5 mg PRN Q2HR PRN IVP TACHYCARDIA (HR>110); Start 10/22/21 at 00:00 Metronidazole 100 ml @ 100 mls/hr Q12HR IV ; Start 10/22/21 at 09:00; Stop 10/28/21 at 09:00 Norepinephrine Bitartrate 8 mg/ Dextrose 258 ml @ 14.687 mls/ hr CONT PRN IV PER PROTOCOL; Start 10/22/21 at 05:45 Pantoprazole Sodium (PROTONIX VIAL for IV PUSH) 40 mg DAILYAC IVP Last administered on 10/22/21at 07:21; Start 10/22/21 at 07:30 Ziprasidone (Geodon Im) 10 mg PRN Q4HRS PRN IM AGITATION Last administered on 10/22/21at 05:04; Start 10/22/21 at 00:00 Vitals/I & O Vital Sign - Last 24 Hours 10/21/21 10/21/21 10/21/21 10/21/21 09:00 09:45 11:00 15:00 Temp 97.4 97.6 97.4 97.6 Pulse 114 114 91 Resp 20 20 B/P (MAP) 103/57 103/57 (72) 113/76 (88) Pulse Ox 94 96 94 O2 Delivery Nasal Cannula Nasal Cannula Nasal Cannula O2 Flow Rate 3.0 2.0 2.0 10/21/21 10/21/21 10/21/21 10/21/21 19:45 20:05 22:26 23:25 Temp 97.3 97.3 Pulse 128 Resp 24 18 18 B/P (MAP) 96/54 (68) Pulse Ox 92 92 92 O2 Delivery Nasal Cannula Room Air Room Air Room Air O2 Flow Rate 3.0 3.0 3.0 10/21/21 23:30 Temp 97.9 97.9 Pulse 156 Resp 21 B/P (MAP) 103/56 (72) Pulse Ox 92 O2 Delivery Nasal Cannula O2 Flow Rate 3.0 Intake and Output 10/21/21 10/21/21 10/22/21 15:00 23:00 07:00 Intake Total 0 ml 0 ml 1600 ml Balance 0 ml 0 ml 1600 ml ERVIN GRIER MD Oct 22, 2021 08:21
[2021-10-22] MEDS ORDERED: IV NORMAL SALINE 1000ML BAG 1,000 ML IV SCH (08:30)
[2021-10-22] MEDS: METOPROLOL SUCC 24HR ER 25 MG TAB.ER.24H. PO SCH (09:00)
[2021-10-22] MEDS: SENNOSIDES/DOCUSATE 8.6/50MG TABLET. PO SCH ×2 (09:00→19:49)
[2021-10-22 09:31] LABS: BASE EXCESS ABG -7 mmol/L (-3-3); HCO3 ABG 20 mmol/L (21-28); PCO2 ABG 44 mmHg (35-46); PO2 ABG 204 mmHg (65-108); SAT O2 ABG 99 % (92-99)
[2021-10-22 09:32] LABS: FIO2 ABG 100% 15L NRB
[2021-10-22] MEDS ORDERED: SODIUM BICARB ADULT 8.4% 50 MEQ/50 ML DISP.SYRIN. IV ONE (09:45)
--- NOTE | 2021-10-22 10:22 | PDOC ---
Provider Note Date of Service: DATE: 10/22/21 TIME: 10:20 Provider Note My full note is dictated. 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 She developed neutropenia/pancytopenia post chemo and now in septic shock and respiratory failure. Prognosis is extremely grim. At talk to patient's brother at the bedside about advanced directives. He mentioned that a friend Cori has DPOA. We reached out to Yarelis cardenas and found out that she has only financial responsibilities. I had spoken to patient's brother over the phone. Explained patient's critical illness and recommended DNR. He said he will be here in the ICU in an hour and make further decisions. Continue present aggressive care for now. Justifications for Admission Other Justification ZHEN JALLOH MD Oct 22, 2021 10:22
--- NOTE | 2021-10-22 10:49 | CONS ---
DATE OF CONSULTATION: 10/22/2021 PULMONARY CONSULTATION ATTENDING PHYSICIAN: Libra Wolfe MD REASON FOR CONSULTATION: Respiratory failure, metastatic uterine cancer. HISTORY OF PRESENT ILLNESS: The patient is a 80-year-old female who recently was diagnosed with uterine cancer. She had a CT abdomen and pelvis done on 09/13/2021. At that time, there was a large amount of intraabdominal ascites along with peritoneal and omental nodularity concerning for peritoneal carcinomatosis. The patient had an enhancing mass centrally within the uterus, which was 6 cm in size. The patient subsequently had paracentesis. Fluid was consistent with adenocarcinoma favoring uterine primary. The patient had received chemo about a week ago. She became neutropenic post-chemo. She was hospitalized. She underwent paracentesis about a week ago, 4.6 liters of fluid was removed. Her white cell count on admission on 10/17 was 0.6. I suspect that she received Neupogen. Her white cell count today is 63.5. The patient was transferred to the ICU with worsening dyspnea and hypoxia. The family members tried to give her ice chips. She likely aspirated. The patient is currently hypotensive as well. She is in shock. She has received a liter of IV fluids. I have ordered vasopressin. I have reviewed the patient's chest x-ray and it shows a small basilar effusion and slightly prominent interstitial markings. She is having audible coarse rhonchi. She is lethargic. She did receive fentanyl 25 mcg last night. I have reviewed the chart and imaging studies. I tried to reach her and left a message. Consultation requested for further evaluation and management. PAST MEDICAL HISTORY: Recently diagnosed uterine cancer; history of chemo-induced leukopenia, now marked leukocytosis; ascites, which is malignant status post paracentesis; hypertension; hyperlipidemia; possible cardiomyopathy; PSVT. PAST SURGICAL HISTORY: Paracentesis. ALLERGIES: ACETAMINOPHEN, CODEINE, HYDROCODONE AND TRAMADOL. MEDICATIONS: Reviewed as listed in the MRAD. She is currently not on any antibiotics. REVIEW OF SYSTEMS: Unable to obtain due to her encephalopathy. FAMILY HISTORY: Unable to obtain. SOCIAL HISTORY: Unable to obtain. PHYSICAL EXAMINATION: GENERAL: She is lethargic. She is on a nonrebreather mask. VITAL SIGNS: Blood pressure 70 systolic. Afebrile. Pulse ox is 99%. NECK: Supple. LUNGS: With coarse rhonchi anteriorly. CARDIOVASCULAR: With tachycardia. ABDOMEN: Distended. EXTREMITIES: With 1+ pitting edema bilaterally. LABORATORY DATA: Reviewed. White cell count 63,000, hemoglobin 10.3 and platelets are 342. BUN 27, creatinine 1.1. Chest x-ray as discussed above. ABGs showed a pH of 7.27, pCO2 of 44 and a pO2 of 204 with a bicarbonate of 19. IMPRESSION: 1. Acute hypoxic and hypercapnic respiratory failure secondary to multifactorial etiologies including septic shock and aspiration pneumonia. 2. Metastatic ovarian cancer with a recent malignant ascitic fluid along with peritoneal carcinomatosis. 3. Shock, likely septic. She was neutropenic on admission and likely immunocompromised. She is status post IV fluids. 4. Aspiration pneumonia. 5. Abnormal chest x-ray. 6. Acute kidney injury. 7. Encephalopathy secondary to septic shock. RECOMMENDATIONS: 1. Discussed with RN and RT. At this time, we will place her on BiPAP. 2. We will give 1 amp of bicarbonate. 3. Initiate vasopressin. 4. Continue antibiotics, cefepime. 5. Monitor renal function. 6. Overall prognosis is extremely grim. I would recommend discussion of advanced directives. I would recommend DNR. I have reached out to the patient's . I have left a message. I will try to reach out to him again. Chart reviewed, imaging studies reviewed. Total critical care time [address]: LANDON/lety TID: [id number] [facility]
[2021-10-22] MEDS: fentaNYL PF VIAL 100 MCG/2 ML VIAL IVP PRN ×4 (12:25→20:30)
--- NOTE | 2021-10-22 12:27 | PDOC ---
GENERAL General: Patient examined chart reviewed today's hospital day 8 for this patient with advanced uterine adenocarcinoma. She has been treated through [facility] home visit field care manager oncology with chemotherapy admitted here for management of her malignant ascites. She had a rapid response last night for acute hypoxic respiratory failure after intractable vomiting. Concern is for aspiration pneumonia. Patient has clinically declined in the last several hours now has septic shock. Pulmonary critical care assistance is appreciated. I discussed with the charge nurse who tells me that family has spoken at length with Dr. Portillo and plan is for 24 more hours of aggressive treatment reassess in the morning. Patient's CODE STATUS has been changed to DO NOT RESUSCITATE DO NOT INTUBATE. She is quite dyspneic on my assessment and somnolent though does awaken for her grandchildren who are coming in behind me. Time spent today is 30 minutes with greater than 50% in counseling and coordination of care most of which in discussion with nursing and extensive chart review regarding care plan and progress. Problems: (1) Malignant ascites (2) Uterine malignant neoplasm (3) Peritoneal carcinomatosis VITAL SIGNS Vital Signs/I&O: Vital Signs Date Time Temp Pulse Resp B/P (MAP) Pulse Ox O2 Delivery O2 Flow Rate FiO2 10/22/21 11:31 97 BiPAP/CPAP 10/22/21 11:00 139 18 88/70 (76) 10/22/21 09:00 15.0 10/22/21 07:00 98.4 98.4 I & O 10/21/21 10/21/21 10/22/21 15:00 23:00 07:00 Intake Total 0 ml 0 ml 1600 ml Output Total 300 ml Balance 0 ml 0 ml 1300 ml Patient is somnolent on high flow oxygen interacts some brightened when her grandchildren came in HEENT exam is unremarkable for acute abnormality Chest notable for rhonchorous tachypnea bilateral equal air entry throughout Heart S1-S2 normal tachycardic no murmurs or gallops are noted Abdomen is distended soft nontender no masses organomegaly noted Extremity exam is unremarkable for acute abnormality ALLERGIES Allergies: Allergies Coded Allergies Type Severity Reaction Last Updated Verified codeine Allergy Severe 09/13/21 Yes acetaminophen Allergy Intermediate 09/13/21 Yes hydrocodone Allergy Intermediate 09/13/21 Yes tramadol Allergy Intermediate 09/13/21 Yes MEDS Medications: Current Medications Medications (Trade) Dose Ordered Sig/Rohit Start Time Stop Time Status Last Admin Dose Admin Acetaminophen (Tylenol) 650 mg PRN Q6HRS PRN 10/15/21 09:45 UNV Albumin Human 50 ml @ 50 mls/hr 1X ONCE 10/16/21 13:00 10/16/21 13:59 DC Albuterol Sulfate (Ventolin Neb Soln) 2.5 mg PRN Q6HRS PRN 10/19/21 11:30 10/21/21 09:42 Calcium Carbonate/ Glycine (Tums) 500 mg PRN Q3HRS PRN 10/15/21 09:45 10/20/21 11:05 Cefepime HCl (Maxipime) 1 gm Q24H 10/18/21 16:00 10/25/21 15:59 10/21/21 16:10 Fentanyl Citrate (Fentanyl 2ml Vial) 50 mcg PRN Q4HRS ONCE 10/22/21 12:15 10/22/21 12:16 UNV Guaifenesin/ Codeine Phosphate (Robitussin Ac) 5 ml PRN Q6HRS PRN 10/19/21 11:15 10/19/21 19:50 Heparin Sodium (Porcine) (Heparin Sodium) 5,000 unit Q8HRS 10/15/21 14:00 Info (Non-Icu Electrolyte Protocol) 1 ea PRN DAILY PRN 10/15/21 09:45 Lorazepam (Ativan Inj) 0.25 mg PRN Q4HRS PRN 10/22/21 00:00 Magnesium Sulfate 50 ml @ 25 mls/hr 1X ONCE 10/18/21 13:00 10/18/21 14:59 DC 10/18/21 13:42 Metoprolol Succinate (Toprol Xl) 12.5 mg DAILY 10/18/21 09:00 10/19/21 12:11 Metoprolol Tartrate (Lopressor Vial) 5 mg PRN Q2HR PRN 10/22/21 00:00 Metronidazole 100 ml @ 100 mls/hr Q12HR 10/22/21 09:00 10/28/21 09:00 10/22/21 08:51 Morphine Sulfate (Morphine Sulfate) 2 mg PRN Q1HR PRN 10/15/21 09:45 10/15/21 10:01 DC Multi-Ingredient Mouthwash/Gargle (Gi Cocktail) 20 ml PRN QID PRN 10/20/21 12:00 Multi-Ingredient Mouthwash/Gargle (Magic Mouthwash) 10 ml PRN QID PRN 10/15/21 09:45 10/18/21 15:07 Norepinephrine Bitartrate 8 mg/ Dextrose 258 ml @ 14.687 mls/ hr CONT PRN 10/22/21 05:45 Ondansetron HCl (Zofran) 4 mg PRN Q6HRS PRN 10/15/21 09:45 10/21/21 19:14 Pantoprazole Sodium (PROTONIX VIAL for IV PUSH) 40 mg DAILYAC 10/22/21 07:30 10/22/21 07:21 Pantoprazole Sodium (Protonix) 40 mg BIDAC 10/20/21 16:30 10/22/21 05:50 DC 10/20/21 16:17 Prochlorperazine Edisylate (Compazine) 10 mg PRN Q6HRS PRN 10/15/21 09:45 10/21/21 22:26 Senna/Docusate Sodium (Senna Plus) 1 tab BID 10/15/21 21:00 10/17/21 08:07 Sodium Bicarbonate (Sodium Bicarb Adult 8.4% Syr) 50 meq 1X ONCE 10/22/21 09:45 10/22/21 09:52 DC 10/22/21 09:58 Sodium Chloride 1,000 ml @ 100 mls/hr Q10H 10/22/21 08:30 10/22/21 09:36 DC 10/22/21 09:04 Tbo-Filgrastim (Granix) 300 mcg QHS 10/18/21 21:00 10/22/21 05:37 DC 10/21/21 20:51 Vasopressin 20 unit/Dextrose 101 ml @ 12.12 mls/ hr CONT PRN 10/22/21 09:30 Ziprasidone (Geodon Im) 10 mg PRN Q4HRS PRN 10/22/21 00:00 10/22/21 05:04 Zolpidem Tartrate (Ambien) 5 mg PRN QHS PRN 10/15/21 09:45 10/19/21 21:23 Current Medications Medications (Trade) Dose Ordered Sig/Rhoit Route PRN Reason Start Time Stop Time Status Last Admin Dose Admin Lorazepam (Ativan Inj) 1 mg PRN Q4HRS PRN IVP ANXIETY / AGITATION 10/21/21 13:00 10/21/21 23:58 DC 10/21/21 20:52 Ziprasidone (Geodon Im) 10 mg PRN Q4HRS PRN IM AGITATION 10/22/21 00:00 10/22/21 05:04 Metronidazole 100 ml @ 100 mls/hr Q12HR IV 10/22/21 09:00 10/28/21 09:00 10/22/21 08:51 Pantoprazole Sodium (PROTONIX VIAL for IV PUSH) 40 mg DAILYAC IVP 10/22/21 07:30 10/22/21 07:21 Sodium Chloride 1,000 ml @ 100 mls/hr Q10H IV 10/22/21 08:30 10/22/21 09:36 DC 10/22/21 09:04 Sodium Bicarbonate (Sodium Bicarb Adult 8.4% Syr) 50 meq 1X ONCE IV 10/22/21 09:45 10/22/21 09:52 DC 10/22/21 09:58 LAB Lab: Laboratory Tests Test 10/22/21 02:00 10/22/21 09:21 White Blood Count 63.6 x10^3/uL (4.0-11.0) *H Red Blood Count 4.14 x10^6/uL (3.50-5.40) Hemoglobin 10.3 g/dL (12.0-15.5) L Hematocrit 33.7 % (36.0-47.0) L Mean Corpuscular Volume 82 fL (79-100) Mean Corpuscular Hemoglobin 25 pg (25-35) Mean Corpuscular Hemoglobin Concent 31 g/dL (31-37) Red Cell Distribution Width 15.1 % (11.5-14.5) H Platelet Count 342 x10^3/uL (140-400) Neutrophils (%) (Auto) 92 % (31-73) H Lymphocytes (%) (Auto) 3 % (24-48) L Monocytes (%) (Auto) 4 % (0-9) Eosinophils (%) (Auto) 0 % (0-3) Basophils (%) (Auto) 0 % (0-3) Neutrophils # (Auto) 58.4 x10^3/uL (1.8-7.7) H Lymphocytes # (Auto) 2.1 x10^3/uL (1.0-4.8) Monocytes # (Auto) 2.8 x10^3/uL (0.0-1.1) H Eosinophils # (Auto) 0.0 x10^3/uL (0.0-0.7) Basophils # (Auto) 0.3 x10^3/uL (0.0-0.2) H Segmented Neutrophils % 76 % (35-66) H Band Neutrophils % 13 % (0-9) H Lymphocytes % 4 % (24-48) L Monocytes % 4 % (0-10) Metamyelocytes % 1 % (0-0) H Myelocytes % 1 % (0-0) H Promyelocytes % 1 % (0-0) H Toxic Granulation Mod Dohle Bodies Few Platelet Estimate Adequate (ADEQUATE) Polychromasia Slight Anisocytosis Slight Ovalocytes Few Sodium Level 144 mmol/L (136-145) Potassium Level 3.6 mmol/L (3.5-5.1) Chloride Level 108 mmol/L (98-107) H Carbon Dioxide Level 20 mmol/L (21-32) L Anion Gap 16 (6-14) H Blood Urea Nitrogen 27 mg/dL (7-20) H Creatinine 1.1 mg/dL (0.6-1.0) H Estimated GFR (Cockcroft-Gault) 47.9 Glucose Level 177 mg/dL (70-99) H Calcium Level 9.6 mg/dL (8.5-10.1) Troponin I High Sensitivity 20 ng/L (4-50) O2 Saturation 99 % (92-99) Arterial Blood pH 7.27 (7.35-7.45) L Arterial Blood pCO2 at Patient Temp 44 mmHg (35-46) Arterial Blood pO2 at Patient Temp 204 mmHg (65-108) H Arterial Blood HCO3 20 mmol/L (21-28) L Arterial Blood Base Excess -7 mmol/L (-3-3) L FiO2 100% 15l nrb Laboratory Tests 10/22/21 02:00 Laboratory Tests 10/22/21 02:00 ASSESSMENT & PLAN A&P Plan as noted above This note was created using [employer] and may have omissions and/or errors due to the nature of real-time voice evening or night nurse supervisor. Justifications for Admission Other Justification MIKEY GARRETT MD Oct 22, 2021 12:27
--- NOTE | 2021-10-22 13:00 | NUR ---
As per Cori Marroquin, she is the Financial DPOA but not Medical. There was verbal agreement days before to make Rodri (friend) Medical DPOA but did no legal papers were signed. Apparently, eldest son is admitted at 5th floor right now and cannot make any decision for his mother. We waited for Theo, the younger son to come and he spoke to Dr. Osborne thru phone regarding patient's status and as with agreement with other family members, decided to put patient on DNR status and will observe for the next day for any progress and there is plan to make the patient for comfort care if will not improve. Checked IV compatibility prior administering any IV medication as patient as only one access. 1400h- Heparin not administered due to bleeding from NG tube and gina and nasotracheal suctioning.
[2021-10-22] MEDS: VASOPRESSIN - VASOSTRICT 20 UNIT in IV DEXTROSE 5% 100ML 100 ML IV PRN ×2 (13:07→20:18)
[2021-10-22] MEDS: METOPROLOL IV PUSH 5 MG/5 ML VIAL. IVP PRN ×2 (13:59→18:08)
[2021-10-22] MEDS: HEPARIN for SUB-Q USE 5,000 UNIT/ML VIAL. SQ SCH ×2 (14:00→23:12)
[2021-10-22] MEDS: CEFEPIME HCL IV Push 1 GM VIAL. IVP SCH (16:36)
[2021-10-22] MEDS ORDERED: fentaNYL PF VIAL 100 MCG/2 ML VIAL IM ONE (18:15)
[2021-10-22] MEDS ORDERED: fentaNYL PF VIAL 100 MCG/2 ML VIAL IVP ONE (18:30)
[2021-10-23] VITALS (7 sets, daily range): BP systolic 81–124; BP diastolic 62–81
[2021-10-23] MEDS: PANTOPRAZOLE IV PUSH 40 MG VIAL. IVP SCH (01:33)
[2021-10-23] MEDS: METOPROLOL IV PUSH 5 MG/5 ML VIAL. IVP PRN (01:39)
[2021-10-23] MEDS: VASOPRESSIN - VASOSTRICT 20 UNIT in IV DEXTROSE 5% 100ML 100 ML IV PRN ×2 (02:25→10:38)
[2021-10-23] MEDS: fentaNYL PF VIAL 100 MCG/2 ML VIAL IVP PRN ×4 (05:15→15:04)
[2021-10-23] MEDS: HEPARIN for SUB-Q USE 5,000 UNIT/ML VIAL. SQ SCH ×2 (05:25→13:49)
[2021-10-23 05:50] LABS: BASO # 0.1 x10^3/uL (0.0-0.2); BASO % 0 % (0-3); EOS % 0 % (0-3); HEMATOCRIT 25.3 % (36.0-47.0); HEMOGLOBIN 7.9 g/dL (12.0-15.5); LYMPH # 2.1 x10^3/uL (1.0-4.8); LYMPH % 4 % (24-48); MEAN CORPUSCULAR HEMOGLOBIN 25 pg (25-35); MEAN CORPUSCULAR HGB CONC 31 g/dL (31-37); MEAN CORPUSCULAR VOLUME 80 fL (79-100); MONO # 3.5 x10^3/uL (0.0-1.1); MONO % 6 % (0-9); NEUT # 50.2 x10^3/uL (1.8-7.7); NEUT % 90 % (31-73); PLATELET COUNT 268 x10^3/uL (140-400); RED BLOOD COUNT 3.15 x10^6/uL (3.50-5.40); RED CELL DISTRIBUTION WIDTH 15.1 % (11.5-14.5)
[2021-10-23 05:53] LABS: WHITE BLOOD COUNT 55.9 x10^3/uL (4.0-11.0)
[2021-10-23 06:22] LABS: ALBUMIN 1.2 g/dL (3.4-5.0); ALBUMIN/GLOBULIN RATIO 0.4 (1.0-1.7); CALCIUM 9.2 mg/dL (8.5-10.1); CREATININE 1.1 mg/dL (0.6-1.0); GFR 47.9; POTASSIUM 3.6 mmol/L (3.5-5.1); TOTAL BILIRUBIN 0.2 mg/dL (0.2-1.0); TOTAL PROTEIN 4.6 g/dL (6.4-8.2)
--- NOTE | 2021-10-23 07:29 | EKG ---
[facility] [address] [place] [address] Test Date: 2021-10-22 Test Time: 01:52:41 Pat Name: CONSTANCE MENDOZA Department: Room: 103 1 Gender: F Oil Operator: : 1940 Requested By: RAMESH CLARK Order Number: [id number] Reading MD: Weston Jean Baptiste MD Measurements Intervals [place] Rate: 132 P: CT: QRS: 19 QRSD: 108 T: 34 QT: 334 QTc: 499 Interpretive Statements PROBABLE SINUS RHYTHM, PAC'S AND PROBABLE UNDERLYING PACED RHYTHM VERSUS LBBB Electronically Signed On 10-23-2021 10:00:03 LEGAL RESEARCHER by Weston Jean Baptiste MD
[2021-10-23] MEDS: METOPROLOL SUCC 24HR ER 25 MG TAB.ER.24H. PO SCH (07:41)
[2021-10-23] MEDS: SENNOSIDES/DOCUSATE 8.6/50MG TABLET. PO SCH (07:41)
[2021-10-23] MEDS ORDERED: CEFEPIME HCL IV Push 1 GM VIAL. IVP SCH (10:00)
--- NOTE | 2021-10-23 10:20 | PDOC ---
Date of Service: DATE: 10/23/21 TIME: 10:15 Objective: Objective: Events over weekend noted. D/w nurse - to discuss comfort care? - suspected aspiration from vomiting, dried blood in mouth. Reviewed notes - bleeding in NGT (now out). S/p Granix 10/21. Vital Signs: Vital Signs Date Time Temp Pulse Resp B/P (MAP) Pulse Ox O2 Delivery O2 Flow Rate FiO2 10/23/21 08:47 40 93 Venturi Mask 10/23/21 08:00 12.0 10/23/21 08:00 97.9 106 124/73 97.9 Labs: Laboratory Tests Test 10/23/21 05:15 White Blood Count 55.9 x10^3/uL Red Blood Count 3.15 x10^6/uL Hemoglobin 7.9 g/dL Hematocrit 25.3 % Mean Corpuscular Volume 80 fL Mean Corpuscular Hemoglobin 25 pg Mean Corpuscular Hemoglobin Concent 31 g/dL Red Cell Distribution Width 15.1 % Platelet Count 268 x10^3/uL Neutrophils (%) (Auto) 90 % Lymphocytes (%) (Auto) 4 % Monocytes (%) (Auto) 6 % Eosinophils (%) (Auto) 0 % Basophils (%) (Auto) 0 % Neutrophils # (Auto) 50.2 x10^3/uL Lymphocytes # (Auto) 2.1 x10^3/uL Monocytes # (Auto) 3.5 x10^3/uL Eosinophils # (Auto) 0.0 x10^3/uL Basophils # (Auto) 0.1 x10^3/uL Sodium Level 148 mmol/L Potassium Level 3.6 mmol/L Chloride Level 113 mmol/L Carbon Dioxide Level 26 mmol/L Anion Gap 9 Blood Urea Nitrogen 31 mg/dL Creatinine 1.1 mg/dL Estimated GFR (Cockcroft-Gault) 47.9 BUN/Creatinine Ratio 28 Glucose Level 153 mg/dL Calcium Level 9.2 mg/dL Total Bilirubin 0.2 mg/dL Aspartate Amino Transf (AST/SGOT) 33 U/L Alanine Aminotransferase (ALT/SGPT) 25 U/L Alkaline Phosphatase 274 U/L Total Protein 4.6 g/dL Albumin 1.2 g/dL Albumin/Globulin Ratio 0.4 Imaging: CXR 10/22 IMPRESSION: Bilateral perihilar and basilar patchy airspace opacities, unchanged since prior exam. KUB 10/22 IMPRESSION: Gas-filled mildly dilated loops of small bowel in the central abdomen, could rep resent ileus or obstruction. ADDENDUM: Partially imaged enteric tube tip terminates in distal esophagus. Recommend 9 cm advancement. PE: GEN: chronically ill LUNGS: Venturi mask, diminished HEART: tachycardic ABD: some distention NEURO/PSYCH: occasionally lifts arms in arm (has mittens) A/P: Resp failure PLASTERER SPOT cancer, malignant ascites N/v Anemia UTI -- Await family/friends decisions. Poor prognosis, continue support for now GI-meza. Justicifation of Admission Dx: Justifications for Admission: Justification of Admission Dx: Yes JENNIFER REBOLLEDO Oct 23, 2021 10:20
[2021-10-23] MEDS ORDERED: fentaNYL PF VIAL 100 MCG/2 ML VIAL IVP PRN (10:30)
--- NOTE | 2021-10-23 10:38 | PDOC ---
PULMONARY PROGRESS NOTES DATE: 10/23/21 TIME: 10:35 Subjective Patient remains lethargic. On a Venturi mask. Unable to communicate with the patient. Vitals Vital Signs Date Time Temp Pulse Resp B/P (MAP) Pulse Ox O2 Delivery O2 Flow Rate FiO2 10/23/21 10:00 71 22 112/68 95 Venturi Mask 12.0 10/23/21 08:00 97.9 97.9 General: Lethargic Lungs: Clear Cardiovascular: S1 Abdomen: Other (Distended.) Extremities: Other (Trace pitting edema) Labs Laboratory Tests Test 10/22/21 02:00 10/22/21 09:21 10/23/21 05:15 White Blood Count 63.6 x10^3/uL (4.0-11.0) 55.9 x10^3/uL (4.0-11.0) Red Blood Count 4.14 x10^6/uL (3.50-5.40) 3.15 x10^6/uL (3.50-5.40) Hemoglobin 10.3 g/dL (12.0-15.5) 7.9 g/dL (12.0-15.5) Hematocrit 33.7 % (36.0-47.0) 25.3 % (36.0-47.0) Mean Corpuscular Volume 82 fL (79-100) 80 fL (79-100) Mean Corpuscular Hemoglobin 25 pg (25-35) 25 pg (25-35) Mean Corpuscular Hemoglobin Concent 31 g/dL (31-37) 31 g/dL (31-37) Red Cell Distribution Width 15.1 % (11.5-14.5) 15.1 % (11.5-14.5) Platelet Count 342 x10^3/uL (140-400) 268 x10^3/uL (140-400) Neutrophils (%) (Auto) 92 % (31-73) 90 % (31-73) Lymphocytes (%) (Auto) 3 % (24-48) 4 % (24-48) Monocytes (%) (Auto) 4 % (0-9) 6 % (0-9) Eosinophils (%) (Auto) 0 % (0-3) 0 % (0-3) Basophils (%) (Auto) 0 % (0-3) 0 % (0-3) Neutrophils # (Auto) 58.4 x10^3/uL (1.8-7.7) 50.2 x10^3/uL (1.8-7.7) Lymphocytes # (Auto) 2.1 x10^3/uL (1.0-4.8) 2.1 x10^3/uL (1.0-4.8) Monocytes # (Auto) 2.8 x10^3/uL (0.0-1.1) 3.5 x10^3/uL (0.0-1.1) Eosinophils # (Auto) 0.0 x10^3/uL (0.0-0.7) 0.0 x10^3/uL (0.0-0.7) Basophils # (Auto) 0.3 x10^3/uL (0.0-0.2) 0.1 x10^3/uL (0.0-0.2) Segmented Neutrophils % 76 % (35-66) Band Neutrophils % 13 % (0-9) Lymphocytes % 4 % (24-48) Monocytes % 4 % (0-10) Metamyelocytes % 1 % (0-0) Myelocytes % 1 % (0-0) Promyelocytes % 1 % (0-0) Toxic Granulation Mod Dohle Bodies Few Platelet Estimate Adequate (ADEQUATE) Polychromasia Slight Anisocytosis Slight Ovalocytes Few Sodium Level 144 mmol/L (136-145) 148 mmol/L (136-145) Potassium Level 3.6 mmol/L (3.5-5.1) 3.6 mmol/L (3.5-5.1) Chloride Level 108 mmol/L (98-107) 113 mmol/L (98-107) Carbon Dioxide Level 20 mmol/L (21-32) 26 mmol/L (21-32) Anion Gap 16 (6-14) 9 (6-14) Blood Urea Nitrogen 27 mg/dL (7-20) 31 mg/dL (7-20) Creatinine 1.1 mg/dL (0.6-1.0) 1.1 mg/dL (0.6-1.0) Estimated GFR (Cockcroft-Gault) 47.9 47.9 Glucose Level 177 mg/dL (70-99) 153 mg/dL (70-99) Calcium Level 9.6 mg/dL (8.5-10.1) 9.2 mg/dL (8.5-10.1) Troponin I High Sensitivity 20 ng/L (4-50) O2 Saturation 99 % (92-99) Arterial Blood pH 7.27 (7.35-7.45) Arterial Blood pCO2 at Patient Temp 44 mmHg (35-46) Arterial Blood pO2 at Patient Temp 204 mmHg (65-108) Arterial Blood HCO3 20 mmol/L (21-28) Arterial Blood Base Excess -7 mmol/L (-3-3) FiO2 100% 15l nrb BUN/Creatinine Ratio 28 (6-20) Total Bilirubin 0.2 mg/dL (0.2-1.0) Aspartate Amino Transf (AST/SGOT) 33 U/L (15-37) Alanine Aminotransferase (ALT/SGPT) 25 U/L (14-59) Alkaline Phosphatase 274 U/L (46-116) Total Protein 4.6 g/dL (6.4-8.2) Albumin 1.2 g/dL (3.4-5.0) Albumin/Globulin Ratio 0.4 (1.0-1.7) Laboratory Tests Test 10/23/21 05:15 White Blood Count 55.9 x10^3/uL (4.0-11.0) Red Blood Count 3.15 x10^6/uL (3.50-5.40) Hemoglobin 7.9 g/dL (12.0-15.5) Hematocrit 25.3 % (36.0-47.0) Mean Corpuscular Volume 80 fL (79-100) Mean Corpuscular Hemoglobin 25 pg (25-35) Mean Corpuscular Hemoglobin Concent 31 g/dL (31-37) Red Cell Distribution Width 15.1 % (11.5-14.5) Platelet Count 268 x10^3/uL (140-400) Neutrophils (%) (Auto) 90 % (31-73) Lymphocytes (%) (Auto) 4 % (24-48) Monocytes (%) (Auto) 6 % (0-9) Eosinophils (%) (Auto) 0 % (0-3) Basophils (%) (Auto) 0 % (0-3) Neutrophils # (Auto) 50.2 x10^3/uL (1.8-7.7) Lymphocytes # (Auto) 2.1 x10^3/uL (1.0-4.8) Monocytes # (Auto) 3.5 x10^3/uL (0.0-1.1) Eosinophils # (Auto) 0.0 x10^3/uL (0.0-0.7) Basophils # (Auto) 0.1 x10^3/uL (0.0-0.2) Sodium Level 148 mmol/L (136-145) Potassium Level 3.6 mmol/L (3.5-5.1) Chloride Level 113 mmol/L (98-107) Carbon Dioxide Level 26 mmol/L (21-32) Anion Gap 9 (6-14) Blood Urea Nitrogen 31 mg/dL (7-20) Creatinine 1.1 mg/dL (0.6-1.0) Estimated GFR (Cockcroft-Gault) 47.9 BUN/Creatinine Ratio 28 (6-20) Glucose Level 153 mg/dL (70-99) Calcium Level 9.2 mg/dL (8.5-10.1) Total Bilirubin 0.2 mg/dL (0.2-1.0) Aspartate Amino Transf (AST/SGOT) 33 U/L (15-37) Alanine Aminotransferase (ALT/SGPT) 25 U/L (14-59) Alkaline Phosphatase 274 U/L (46-116) Total Protein 4.6 g/dL (6.4-8.2) Albumin 1.2 g/dL (3.4-5.0) Albumin/Globulin Ratio 0.4 (1.0-1.7) Medications Active Scripts Medications Dose Route/Sig Max Daily Dose Days Date Category Naprosyn (Naproxen) 500 Mg Tablet 1 Tab PO BID 15 09/18/21 Rx Impression . 1. Acute hypoxic and hypercapnic respiratory failure secondary to multifactorial etiologies including septic shock and aspiration pneumonia. 2. Metastatic ovarian cancer with a recent malignant ascitic fluid along with peritoneal carcinomatosis. 3. Shock, likely septic. She was neutropenic on admission and likely immunocompromised. She is status post IV fluids. 4. Aspiration pneumonia. 5. Abnormal chest x-ray. 6. Acute kidney injury. 7. Encephalopathy secondary to septic shock. Plan . RECOMMENDATIONS: 1. I spoke with patient's son yesterday afternoon. Explained to him about her poor prognosis. He was agreeable to make her DNR. 2. Patient remains critically ill. Patient's niece who is a nurse at the bed side. I explained to her patient's prognosis. She agreeable to hospice. 3. vasopressin. 4. Continue antibiotics, cefepime. 5. Monitor renal function. 6. Patient's niece will talk to patient's brother and if they all mutually agree, plan is to make her hospice care Discussed with RN. ZHEN JALLOH MD Oct 23, 2021 10:38
--- NOTE | 2021-10-23 10:45 | NUR ---
SS following up with discharge planning. SS reviewed pt chart and discussed with pt RN. Pt is currently on Venti Mask. Pt transferred to ICU over the weekend. Pt on IV Cefepime. At this time, pt's family requesting LTC placement at [facility], ; fax [phone], with [facility], ; fax [phone]. Referrals phoned and faxed as requested. [facility] to reach out to family to discuss finances. SS will continue to follow for discharge planning. Addendum: 10/23/21 at 1545 by RAINER JONES Pt accepted at [facility] with [facility]. Discharge orders and script received and phoned and faxed to [facility] and [facility]. Pt will discharge today and go to [facility] at 1700. [place] to provide stretcher transportation through [employer]. Pt, pt's RN, and pt's family notified.
--- NOTE | 2021-10-23 12:11 | PDOC ---
SETH COWAN COMB FIXER 10/23/21 1211: CARDIO Progress Notes Date and Time Date of Service 10/23/21 Time of Evaluation 1210 Subjective Subjective: No Chest Pain, No shortness of breath, No Palpitations Vitals Vitals Vital Signs Date Time Temp Pulse Resp B/P (MAP) Pulse Ox O2 Delivery O2 Flow Rate FiO2 10/23/21 12:00 92 14 94/63 96 Venturi Mask 12.0 10/23/21 08:00 97.9 97.9 Weight Weight [ ] Input and Output Intake and Output Intake and Output 10/23/21 07:00 Intake Total 392.3 ml Output Total 1660 ml Balance -1267.7 ml Intake Oral 0 ml IV Total 392.3 ml Output Urine Total 510 ml Gastric Drainage Total 250 ml Emesis 900 ml Laboratory Labs Laboratory Tests Test 10/23/21 05:15 White Blood Count 55.9 x10^3/uL (4.0-11.0) Red Blood Count 3.15 x10^6/uL (3.50-5.40) Hemoglobin 7.9 g/dL (12.0-15.5) Hematocrit 25.3 % (36.0-47.0) Mean Corpuscular Volume 80 fL (79-100) Mean Corpuscular Hemoglobin 25 pg (25-35) Mean Corpuscular Hemoglobin Concent 31 g/dL (31-37) Red Cell Distribution Width 15.1 % (11.5-14.5) Platelet Count 268 x10^3/uL (140-400) Neutrophils (%) (Auto) 90 % (31-73) Lymphocytes (%) (Auto) 4 % (24-48) Monocytes (%) (Auto) 6 % (0-9) Eosinophils (%) (Auto) 0 % (0-3) Basophils (%) (Auto) 0 % (0-3) Neutrophils # (Auto) 50.2 x10^3/uL (1.8-7.7) Lymphocytes # (Auto) 2.1 x10^3/uL (1.0-4.8) Monocytes # (Auto) 3.5 x10^3/uL (0.0-1.1) Eosinophils # (Auto) 0.0 x10^3/uL (0.0-0.7) Basophils # (Auto) 0.1 x10^3/uL (0.0-0.2) Sodium Level 148 mmol/L (136-145) Potassium Level 3.6 mmol/L (3.5-5.1) Chloride Level 113 mmol/L (98-107) Carbon Dioxide Level 26 mmol/L (21-32) Anion Gap 9 (6-14) Blood Urea Nitrogen 31 mg/dL (7-20) Creatinine 1.1 mg/dL (0.6-1.0) Estimated GFR (Cockcroft-Gault) 47.9 BUN/Creatinine Ratio 28 (6-20) Glucose Level 153 mg/dL (70-99) Calcium Level 9.2 mg/dL (8.5-10.1) Total Bilirubin 0.2 mg/dL (0.2-1.0) Aspartate Amino Transf (AST/SGOT) 33 U/L (15-37) Alanine Aminotransferase (ALT/SGPT) 25 U/L (14-59) Alkaline Phosphatase 274 U/L (46-116) Total Protein 4.6 g/dL (6.4-8.2) Albumin 1.2 g/dL (3.4-5.0) Albumin/Globulin Ratio 0.4 (1.0-1.7) Microbiology Micro Microbiology 10/16/21 Urine Culture - Final, Complete Escherichia Coli Physical Exam HEENT: Neck Supple W Full Motion Chest: Symmetric LUNGS: Other (diminished, on venti mask) Heart: RRR Abdomen: Other (ascites) Extremities: No Calf Tenderness Neurology: alert, follow commands Assessment Assessment 1. Malignant ascites: hemonc following. S/P paracentesis is on chemotherapy 2. Hx of HTN and HLP 3. Stomatitis r/t chemo 4. Uterine adenocarcinoma 5. PSVT: SR/ST with PACs. 2D echo showed normal LV systolic function 6. Pancytopenia 7. Reported syncope: last week Saturday, seizure 8. Possible aspiration pneumonia Recommendations Plans for discharge with Hospice Will sign off Please call with questions Justicifation of Admission Dx: Justifications for Admission: Justification of Admission Dx: Yes ERVIN GRIER MD 10/23/21 2804: CARDIO Progress Notes Assessment Assessment Patient seen and examined. Agree with MEN'S DESIGNER's assessment and plan as stated above. SETH COWAN APRN Oct 23, 2021 12:11 ERVIN GRIER MD Oct 23, 2021 17:41
--- NOTE | 2021-10-23 15:19 | SNU/HH DC ---
DISCHARGE ORDERS DISCHARGE INFORMATION: DISCHARGE DATE: Oct 23, 2021 CONDITION ON DISCHARGE: Guarded CODE STATUS: Code Status: DNR/DNI CORRECTION: SNF STAY <30 DAYS: No HOSPICE: HOSPICE: Yes HOSPICE EVAL & TREAT: Yes POST DISCHARGE ORDERS: ACTIVITY ORDERS: Activity as tolerated WEIGHT BEARING STATUS: As tolerated DIET AFTER DISCHARGE: Regular WOUND/INCISION CARE: Ice to area for comfort TREATMENT/EQUIPMENT ORDERS: ADAPTIVE EQUIPMENT NEEDED: None DISCHARGE MEDICATIONS: Home Meds Active Scripts Naproxen (NAPROSYN) 500 Mg Tablet, 1 TAB PO BID for pain for 15 Days, #30 TAB 0 Refills Prov:JOSELUIS MILLS MD 09/18/21 DYANA MURRELL MD Oct 23, 2021 15:19
--- NOTE | 2021-10-23 17:19 | NUR ---
Patient transferred to [facility] at 1710 accompanied by transport set up by [facility]. Report given to FREDA Schuster at [facility]. Outside the hospital DNR form completed prior to transport and sent with the patient. Patient's rosales needle removed, almazan catheter kept in place. Patient's friend took home patient's belongings. Notified patient's son of transport time.
--- NOTE | 2021-10-23 18:08 | PDOC3 ---
[facility]-Discharge Summary Date of Admission: Date of Admission: Oct 15, 2021 Date of Discharge: Date of Discharge: Oct 23, 2021 Admission Diagnosis: Problems: (1) Uterine malignant neoplasm (2) Rectal mass (3) Peritoneal carcinomatosis (4) Malignant ascites Hospital Course: Hospital Course: Chief Complaint Uterine cancer Probable pneumonia Status post chemotherapy a week ago Mouth sores Leukopenia Ascites Status post paracentesis Hypertension Hyperlipidemia Possible cardiomyopathy PSVT Pancytopenia Recent syncope History of Present Illness History of Present Illness 10/23 Patient evaluated examined at bedside. Discussed with family they have decided on hospice for the patient. Accepted to hospice today discharged from here. Greater than 30 minutes spent on discharge. 25 minutes advance care planning. 10/21/2021 Patient seen and examined [place] she is resting with no apparent distress Discussed with RN Patient apparently is still having nausea and some anxiety per her RN Chart reviewed 10/20/2021 Patient seen and examined She states her life "sucks" Discussed with RN Patient has been difficult Discussed with case management Chart reviewed 10/20/2019 Patient seen and examined Discussed with case management Discussed with RN Chart reviewed Discussed with oncologist 10/18/2021 No acute events overnight. Patient seen examined bedside. Pending echo. Endorses some shortness of breath. Chest x-ray shows right-sided pleural effusion that is minimal. Pending paracentesis results. Will give 300 mcg Granix today. Patient's chart, labs, images were reviewed and discussed with RN 10/17/21 No acute events overnight. Patient seen examined bedside. Patient clinically feels better. She did have a bloody bowel movement in which it was collected for blood. WBC dropped to 0.6 today. Hematology consulted for possible Granix injection. Patient had a paracentesis yesterday with 4.6 L fluid output. Patient with tachycardia in the 130s. 250 NS bolus given. She did have some PVCs and irregular rhythms. Cardiology is consulted. Patient's chart, labs, images were reviewed and discussed with RN 10/16 Patient evaluated examined at bedside. Resting complaint fair bit of pain in her abdomen. Eager for paracentesis. Continue current treatments. We will follow up with patient after paracentesis. Disposition: Disposition/Orders: Other Activity: Activity: Resume previous activity Diet: Diet: Regular Medications: Home Meds Active Scripts Naproxen (NAPROSYN) 500 Mg Tablet, 1 TAB PO BID for pain for 15 Days, #30 TAB 0 Refills Prov:JOSELUIS MILLS MD 09/18/21 Scheduled Naproxen (Naprosyn), 1 TAB PO BID Justicifation of Admission Dx: Justifications for Admission: Justification of Admission Dx: Yes DYANA MURRELL MD Oct 23, 2021 18:08
== END 2021-10-23 17:10 | disposition hospice, inpatient (51) | DRG 871 ==
LOC: 5 NORTH 01:30 → 1 WEST ICU 10-22 02:10
PROVIDERS: ADMIT Internal Medicine; ATTEND Internal Medicine
PROC: 0W9G3ZZ Drainage of Peritoneal Cavity, Percutaneous Approach (ICD-10-PCS; 2021-10-16)
PROC: 5A09357 Assistance with Respiratory Ventilation, Less than 24 Consecutive Hours, Continuous Positive Airway Pressure (ICD-10-PCS; principal; 2021-10-22)
DX: A41.9 Sepsis, unspecified organism (principal); J69.0 Pneumonitis due to inhalation of food and vomit; J96.01 Acute respiratory failure with hypoxia; J96.02 Acute respiratory failure with hypercapnia; R65.21 Severe sepsis with septic shock; C56.9 Malignant neoplasm of unspecified ovary; C78.6 Secondary malignant neoplasm of retroperitoneum and peritoneum; D61.818 Other pancytopenia; D84.9 Immunodeficiency, unspecified; G93.40 Encephalopathy, unspecified; J90 Pleural effusion, not elsewhere classified; N17.9 Acute kidney failure, unspecified; N39.0 Urinary tract infection, site not specified; R18.0 Malignant ascites; I47.1 Supraventricular tachycardia; K92.1 Melena; C55 Malignant neoplasm of uterus, part unspecified; E78.5 Hyperlipidemia, unspecified; F41.9 Anxiety disorder, unspecified; I10 Essential (primary) hypertension; I49.3 Ventricular premature depolarization; K12.1 Other forms of stomatitis; K44.9 Diaphragmatic hernia without obstruction or gangrene; R56.9 Unspecified convulsions; T45.1X5A Adverse effect of antineoplastic and immunosuppressive drugs, initial encounter; Z51.5 Encounter for palliative care; Z80.9 Family history of malignant neoplasm, unspecified; Z85.42 Personal history of malignant neoplasm of other parts of uterus; Z85.89 Personal history of malignant neoplasm of other organs and systems; Z66 Do not resuscitate; Z88.8 Allergy status to other drugs, medicaments and biological substances; K21.9 Gastro-esophageal reflux disease without esophagitis; B96.20 Unspecified Escherichia coli [E. coli] as the cause of diseases classified elsewhere; Y92.89 Other specified places as the place of occurrence of the external cause
CPT/HCPCS: 36415; 36600; 49083; 71045; 74018; 80048; 80053; 81001; 82805; 83735; 84443; 84484; 85007; 85014; 85018; 85025; 85027; 85610; 87077; 87086; 87186; 93005; 93308; 94640; 94660; 94760; C9113; J0692; J0780; J1644; J2060; J2405; J3010; J3475; J3486; J3490; J7030; J7060; P9046; G0378; J1442; J7613